=== PATIENT | female | born 1940 | race Caucasian/White ===

== ENCOUNTER 2016-11-11 14:15 | Inpatient (IN) ==
[2016-11-11] MEDS ORDERED: NS 1,000 ML IV ONE ×2 (14:33→17:51)
--- NOTE | 2016-11-11 14:36 | Emergency Department Report ---
Fever HPI - General Chief Complaint: Fever Stated Complaint: sleepy mentation Time Seen by Provider: 11/11/16 14:25 Source: patient Mode of arrival: EMS Limitations: no limitations - History of Present Illness HPI Narrative: She presents to ER today with per EMS with her daughter. She lives in the [facility] here in [place]. Nursing staff called her daughter and notified her that she has been more confused and sleepy today. She is more perked up per her daughter upon arrival to ER. She is noted to have a temp of 101 upon arrival and also a b/p of 91 systolic. She denies any chills, chest pain, SOA, pain, n/v , or any other c/o. MD complaint: fever Onset (ago): hour(s) Temperature Source: oral Associated symptoms: confusion Relieving factors: nothing Exacerbating factors: nothing Treatments prior to arrival fever: none - Related Data Home Medications Medication Instructions Recorded Confirmed Acyclovir 400 mg PO BID 11/11/16 11/11/16 Albuterol HFA Inhaler [Ventolin 2 puff INH QID PRN 11/11/16 11/11/16 Hfa 90 mcg/actuation] Amlodipine [Norvasc] 5 mg PO DAILY 11/11/16 11/11/16 Atorvastatin [Lipitor] 1 tab PO DAILY 11/11/16 11/11/16 Baclofen [Lioresal] 10 mg PO TID 11/11/16 11/11/16 Calcium 500 + D [Os Cheko-D 500] 1 tab PO DAILY 11/11/16 11/11/16 Colesevelam [Welchol] 1,250 mg PO BID 11/11/16 11/11/16 Cyanocobalamin (Vitamin B-12) 1,000 mcg PO DAILY 11/11/16 11/11/16 [Vitamin B-12] Desipramine HCl 50 mg PO BID 11/11/16 11/11/16 Diclofenac Potassium 50 mg PO BID 11/11/16 11/11/16 Divalproex ER [Depakote ER] 1,000 mg PO BID 11/11/16 11/11/16 Fluticasone [Flovent Diskus 50 mcg] 1 spray EA NOSTRIL DAILY 11/11/16 11/11/16 Hydrocodone/Acetaminophen 1 tab PO Q6HR PRN 11/11/16 11/11/16 [Hydrocodon-Acetaminophen 5-325] Losartan/Hctz 50/12.5 [Hyzaar 1 tab PO DAILY 11/11/16 11/11/16 50/12.5] Magnesium Oxide [Magnesium] 500 mg PO DAILY 11/11/16 11/11/16 Methylcellulose (with Sugar) 2 packet PO DAILY 11/11/16 11/11/16 [Fiber Therapy Powder] Metoprolol Succinate (XL) [Toprol 50 mg PO DAILY 11/11/16 11/11/16 Xl] Multi-Vitamin Plain [Theragran] 1 tab PO DAILY 11/11/16 11/11/16 Nystatin/Triamcinolone CR [MYCOLOG 15 applic TP BID 11/11/16 11/11/16 ii] Olopatadine 0.1% Eye Drops-Bid 1 drop EACH EYE BID 11/11/16 11/11/16 [Patanol] Omeprazole [Prilosec] 20 mg PO ACB 11/11/16 11/11/16 Oxybutynin Chloride 5 mg PO BID 11/11/16 11/11/16 Potassium 99 mg PO DAILY 11/11/16 11/11/16 Venlafaxine HCl [Venlafaxine HCl 150 mg PO DAILY 11/11/16 11/11/16 ER] Zolpidem [Ambien] 10 mg PO HS 11/11/16 11/11/16 Allergies Allergy/AdvReac Type Severity Reaction Status Date / Time gabapentin Allergy Unknown Verified 11/11/16 15:11 pregabalin [From Lyrica] Allergy Unknown Verified 11/11/16 15:10 latex Allergy Verified 11/11/16 15:12 Review of Systems Constitutional: Reports: fever, weakness. Denies: chills ENT: Denies: ear pain, throat pain, congestion Cardiovascular: Denies: chest pain, palpitations, dyspnea on exertion, edema Respiratory: Denies: cough, dyspnea, wheezes Gastrointestinal: Denies: abdominal pain, nausea, vomiting, diarrhea Integumentary: Denies: rash Neurological: Reports: weakness. Denies: headache, numbness, paresthesias PFSH Patient Stated Medical History Cataracts Yes Hypertension Yes Pneumonia Yes Gastroesophageal Reflux Yes Disease Hx Renal Disease Yes Anemia Yes Shingles Yes Was hospitalized in 1989 for severe pneumonia-had bilateral chest tubes and trach at that time. subdural hematoma right kidney failure back pain-has nerves stimulator and pain pump Surgical History: Nerve stimulator. cataracts. cholecystectomy. lumpectomy- left breast, breast cancer. hernia repair. bilateral chest tube with tracheotomy due to severe pneumonia. hysterctomy. tubal ligation. tonsillectomy - Social History Smoking status: Former smoker Substance use type: does not use Alcohol intake frequency: does not drink Physical Exam - Limitations Limitations: no limitations - General General appearance: alert, in no apparent distress - Normal Exams: ENMT:: No facial trauma, nasal exudates, pharyngeal erythema, or exudates are noted Neck:: Full range of motion, without adenopathy, JVD, bruits or thyromegaly Chest/Respirations:: Clear all [place], with good airflow, and symmetry bilaterally Cardiovascular:: Regular rate and rhythm, without murmur or gallop, Pulses 2+ all extremities, capillary refill, <2 seconds all extremities Abdomen:: Bowel sounds positive, soft, non-tender, non-distended, no hepatosplenomegaly, masses or bruits noted Lymphatic:: No lymphadenopathy, or lymphedema noted Integumentary:: No rashes, hives, or bruising noted Neurological:: Patient is alert, and oriented Psychiatric:: Patient exhibits, appropriate attention, emotion and affect Course Vital Signs Pulse Oximetry 88 L 11/11/16 14:21 Temperature 100.1 F 11/11/16 16:32 Pulse Rate 78 11/11/16 16:30 Respiratory Rate 18 11/11/16 14:22 Blood Pressure 89/56 11/11/16 15:28 Pulse Oximetry 95 11/11/16 16:30 Fever - MDM Narrative Medical decision making narrative: WBC is 16.1 with 79 neutrophils and 10% bands. Procalcitonin is 2.32, lactate is 1.9. UA is nitrite positive, LE 1+, WBC 50-200, and bacteria is 3+. Chest xray is clear. B/p has been 79-90s systolic while in ER. IVF is infusing and Rocephin was given IV. Did discuss labs, xray, HPI, and vitals with Dr Anderson and he will admit at this time. - Differential Diagnosis Likely: fever of unknown origin, community acquired pneumonia, viral infection, sepsis - Lab Data Attestation: I reviewed the patient's lab results. Result diagrams: 11/11/16 14:58 11/11/16 14:58 Lab Results 11/11/16 11/11/16 11/11/16 Range/Units 14:58 14:58 14:58 WBC 16.1 H (4.5-11.0) T/MM3 RBC 3.22 L (4.00-5.20) M/MM3 Hgb 10.9 L (12-16) GM/DL Hct 33.0 L (36-46) % MCV 102.5 H (80-100) UM3 MCH 33.9 (26-34) UUG MCHC 33.0 (31-37) GM/DL RDW Std Deviation 49.6 (36.9-50.2) FL Plt Count 179 (130-400) T/MM3 MPV 10.3 (9.4-12.4) UM3 Immature Gran % (Auto) Not performed Neut % (Auto) Not performed Lymph % (Auto) Not performed [place] % (Auto) Not performed Eos % (Auto) Not performed Baso % (Auto) Not performed Neut # (Auto) Not performed Lymph # (Auto) Not performed [place] # (Auto) Not performed Eos # (Auto) Not performed Baso # (Auto) Not performed Abs Immat Gran (auto) Not performed Neutrophils % (Manual) 79.0 H (33-66) % Band Neutrophils % 10.0 H (0-6) % Lymphocytes % (Manual) 3.0 L (23-45) % Monocytes % (Manual) 8.0 (0-9.0) % Neutrophils # (Manual) 12.7 H (1.8-7.7) T/MM3 Band Neutrophils # 1.6 T/MM3 Lymphocytes # (Manual) 0.5 L (1-4.8) T/MM3 Monocytes # (Manual) 1.3 H (0-0.8) T/MM3 RBC Morph Comment Normal Turbidity < 20 (0-20) Sodium 131 L (134-144) MEQ/L Potassium 3.7 (3.6-5) MEQ/L Chloride 94 L (98-107) MEQ/L Carbon Dioxide 29 (22-30) MEQ/L Anion Gap 8 (5-15) MEQ/L BUN 20.0 H (7-17) MG/DL Creatinine 1.2 (0.7-1.2) MG/DL GFR Calculation 44 BUN/Creatinine Ratio 17 (6-26) RATIO Glucose 81 (65-110) MG/DL Calculated Osmolality 255 L (261-280) MOSM/KG Calcium 9.0 (8.4-10.2) MG/DL Total Bilirubin 0.50 (0.20-1.30) MG/DL Icterus Index < 2 (0-7) AST 30 (14-36) U/L ALT 32 (9-52) U/L Alkaline Phosphatase 56 (38-126) U/L Troponin I < 0.012 (0-0.12) ng/ml Total Protein 5.7 L (6.3-8.2) G/DL Albumin 2.7 L (3.5-5.0) G/DL Globulin 3.0 (2.4-3.6) G/DL Albumin/Globulin Ratio 0.9 L (1.1-2.2) RATIO Plasma Lactate 1.9 (0.6-2.2) MMOL/L Procalcitonin 2.32 H* NG/ML Specimen Hemolysis < 15 (0-25) Ur Collection Type Urine Color (YELLOW) Urine Clarity Urine pH (5.0-8.0) Ur Specific [place] (1.015-1.025) Urine Protein (NEGATIVE) Urine Glucose (UA) (NEGATIVE) Urine Ketones (NEGATIVE) Urine Occult Blood (NEGATIVE) Urine Nitrate (NEGATIVE) Urine Bilirubin (NEGATIVE) Urine Urobilinogen (NORMAL) EU/DL Ur Leukocyte Esterase (NEGATIVE) Urine RBC (0-3) /HPF Urine WBC (0-5) /HPF Urine Bacteria (NEGATIVE) Ur Culture Indicated? 11/11/16 Range/Units 15:08 WBC (4.5-11.0) T/MM3 RBC (4.00-5.20) M/MM3 Hgb (12-16) GM/DL Hct (36-46) % MCV (80-100) UM3 MCH (26-34) UUG MCHC (31-37) GM/DL RDW Std Deviation (36.9-50.2) FL Plt Count (130-400) T/MM3 MPV (9.4-12.4) UM3 Immature Gran % (Auto) Neut % (Auto) Lymph % (Auto) [place] % (Auto) Eos % (Auto) Baso % (Auto) Neut # (Auto) Lymph # (Auto) [place] # (Auto) Eos # (Auto) Baso # (Auto) Abs Immat Gran (auto) Neutrophils % (Manual) (33-66) % Band Neutrophils % (0-6) % Lymphocytes % (Manual) (23-45) % Monocytes % (Manual) (0-9.0) % Neutrophils # (Manual) (1.8-7.7) T/MM3 Band Neutrophils # T/MM3 Lymphocytes # (Manual) (1-4.8) T/MM3 Monocytes # (Manual) (0-0.8) T/MM3 RBC Morph Comment Turbidity (0-20) Sodium (134-144) MEQ/L Potassium (3.6-5) MEQ/L Chloride (98-107) MEQ/L Carbon Dioxide (22-30) MEQ/L Anion Gap (5-15) MEQ/L BUN (7-17) MG/DL Creatinine (0.7-1.2) MG/DL GFR Calculation BUN/Creatinine Ratio (6-26) RATIO Glucose (65-110) MG/DL Calculated Osmolality (261-280) MOSM/KG Calcium (8.4-10.2) MG/DL Total Bilirubin (0.20-1.30) MG/DL Icterus Index (0-7) AST (14-36) U/L ALT (9-52) U/L Alkaline Phosphatase (38-126) U/L Troponin I (0-0.12) ng/ml Total Protein (6.3-8.2) G/DL Albumin (3.5-5.0) G/DL Globulin (2.4-3.6) G/DL Albumin/Globulin Ratio (1.1-2.2) RATIO Plasma Lactate (0.6-2.2) MMOL/L Procalcitonin NG/ML Specimen Hemolysis (0-25) Ur Collection Type Urine, clean catch Urine Color Yellow (YELLOW) Urine Clarity Sl cloudy Urine pH 5.5 (5.0-8.0) Ur Specific [place] 1.020 (1.015-1.025) Urine Protein 1+ A (NEGATIVE) Urine Glucose (UA) Negative (NEGATIVE) Urine Ketones Trace A (NEGATIVE) Urine Occult Blood Trace-intact (NEGATIVE) Urine Nitrate Positive A (NEGATIVE) Urine Bilirubin Negative (NEGATIVE) Urine Urobilinogen 0.2 (NORMAL) EU/DL Ur Leukocyte Esterase 1+ A (NEGATIVE) Urine RBC 3-5 H (0-3) /HPF Urine WBC 50-200 H (0-5) /HPF Urine Bacteria 3+ H (NEGATIVE) Ur Culture Indicated? Cult reflexed &setup - Radiology Data Attestation: I reviewed the patient's radiology results. Date of Exam: 11/11/16 Ordering Provider: Lian Middleton APRN Type of Exam(s): XR chest 2V Reason for Exam(s): dyspnea INDICATION: dyspnea PROCEDURE: CHEST 2-VIEWS UPRIGHT (PA & LAT) Encounter: Initial COMPARISON: None FINDINGS: The lungs are clear without evidence of focal abnormal airspace opacity. There is no pleural effusion or pneumothorax. The heart size, mediastinal contours and pulmonary vascularity are within normal limits. Exaggerated thoracic adiposis with chronic appearing lower thoracic compression fractures. Epidural spinal stimulator leads in this region as well. Cholecystectomy clips. Scoliosis. IMPRESSION: No acute cardiopulmonary disease. . Disposition Clinical Impression: Hypotension Qualifiers: Hypotension type: other hypotension type Qualified Code(s): I95.89 - Other hypotension Urinary tract infection Qualifiers: Urinary tract infection type: acute cystitis Hematuria presence: without hematuria Qualified Code(s): N30.00 - Acute cystitis without hematuria [place] [facility] [place] Condition: Stable Time of Disposition: 15:42 - Seen By: midlevel
[2016-11-11] MEDS ORDERED: CEFTRIAXONE (ER USE ONLY) 1 GM in NS 100 ML IV ONE (14:45)
[2016-11-11] MEDS ORDERED: ACETAMINOPHEN 325 MG TABLET PO ONE (14:45)
--- NOTE | 2016-11-11 15:31 | XRay Report ---
INDICATION: dyspnea PROCEDURE: CHEST 2-VIEWS UPRIGHT (PA & LAT) Encounter: Initial COMPARISON: None FINDINGS: The lungs are clear without evidence of focal abnormal airspace opacity. There is no pleural effusion or pneumothorax. The heart size, mediastinal contours and pulmonary vascularity are within normal limits. Exaggerated thoracic adiposis with chronic appearing lower thoracic compression fractures. Epidural spinal stimulator leads in this region as well. Cholecystectomy clips. Scoliosis. IMPRESSION: No acute cardiopulmonary disease. .
[2016-11-11] MEDS: SALINE FLUSH 10ml SYRINGE IVF PRN (15:36)
--- NOTE | 2016-11-11 16:45 | History & Physical Report ---
<Aubree Wheeler - Last Filed: 11/11/16 17:18> History of Present Illness Date: 11/11/16 Chief complaint: altered mental status, fever HPI: Kait Azul is a very pleasant 76-year-old female resident at [facility] who presented to [facility] emergency department via EMS today, 11/11/16, for evaluation of decreased level of consciousness, increased confusion and fever. Her daughter, Oralia, is present on exam and contributes to the history. Kait reports that yesterday, 11/10/16 she started to feel flushed and this morning she just "couldn't wake up". Family reports that she was lethargic this morning with some confusion and apparent difficulty concentrating. Upon arrival to the ED, blood pressure per EMS was noted to be low at 94/55. She was also noted to be febrile with a temperature of 101.3. Labs were obtained and revealed leukocytosis with WBC 16.1 with 79% neutrophils and 10% bands, anemia with hemoglobin 10.9 and platelets 179. She has a history of chronic anemia. CMP revealed hyponatremia with sodium at 131, potassium 3.7, BUN 20, SCr 1.2 and glucose 81. No prior records are available to compare renal function, though she reports history of chronic renal disease. Troponin was negative at <0.012. Lactate was 1.9 and procalcitonin was elevated at 2.32. Blood cultures were obtained and results pending. UA revealed + nitrite with 50 -200 WBC and 3+ bacteria. She was given 1L NS with light improvement in her blood pressure and significant improvement in her mentation. Due to her apparent sepsis secondary to UTI as indicated by her leukocytosis, bandemia and febrile process, Dr. Anderson was contacted and she was admitted into inpatient status for further evaluation, close monitoring for deterioration, IV antibiotics and IV fluid resuscitation. Her length of stay is expected to be greater than 2 over nights. She is seen immediately upon her arrival to her room, with her daughter, Oralia, at the bed side. Oralia reports that the patient looks and is acting significantly better since her presentation to the ED. Kait reports her only complaint is pain to her left inner, posterior thigh/groin secondary to an ulceration that she reports is secondary to her chronic shingles. She denies any known fevers, but admits to feeling flushed yesterday. No chill, headache, change in vision, chest pain, shortness of breath, cough, congestion, nausea, vomiting, chest pain or dysuria. Review of Systems All systems PM: 10-point ROS was reviewed, no additional remarkable complaints except - Constitutional Constitutional: Present: fatigue, fever(s), lethargy, weakness. Absent: chills - EENMT Eyes: Absent: change in vision, photophobia Balance: Absent: falling to one side Nose: Absent: nosebleeds Mouth/Throat: Present: dry mouth. Absent: sore throat, changes in swallowing - Cardiovascular Cardiovascular: Present: edema. Absent: chest pain, palpitations, syncope, dyspnea on exertion, orthopnea Vascular: Present: pedal edema - Respiratory Respiratory: Absent: cough, dyspnea, hemoptysis, dyspnea on exertion, wheezing, pain on inspiration, chest congestion - Gastrointestinal Gastrointestinal: Present: constipation. Absent: abdominal pain, diarrhea, hematochezia, melena, nausea, vomiting - Genitourinary Genitourinary: Present: urinary incontinence. Absent: difficulty urinating, dysuria, flank pain, hematuria, urinary frequency Menstruation: post hysterectomy - Musculoskeletal Musculoskeletal: Present: back pain, muscle weakness - Integumentary/Breasts Integumentary: Present: non-healing lesions (left medial/posterior upper thigh/ groin ulceration ). Absent: jaundice - Neurological Neurological: Present: confusion, memory loss, weakness. Absent: convulsions, dizziness, focal weakness, headache(s) - Psychiatric Psychiatric: Absent: anxiety - Endocrine Endocrine: Present: flushing. Absent: palpitations - Hematologic/Lymphatic Hematologic/Lymphatic: Present: easy bleeding, easy bruising - Allergic/Immunologic Allergic/Immunologic: Absent: seasonal rhinorrhea PFSH Hypertension. COPD. Hypercholesterolemia. GERD. Chronic back pain. Chronic kidney disease, stage III. Obesity. Cataracts. History of pneumonia. History of shingles. Depression. History of subdural hematoma-2015. History of breast cancer. History of pyelonephritis with right kidney failure - 1979. Surgical History: Nerve stimulator to back-2015,2014,2008. Cataract implant x 2 -2006. Cholecystectomy-2006. Lumpectomy-left breast, breast cancer-2001. Hernia repair-2001. Bilateral chest tube with tracheotomy due to severe pneumonia-1989. Hysterctomy-1971. Bilateral tubal ligation-1970. Tonsillectomy-1946. Family History Updates: Mother - age 70, unknown cancer. Father - age 68, diabetes. - Social History Smoking status: Former smoker Substance use type: does not use Alcohol intake frequency: does not drink Household members: none Current occupational status: retired Current residence: [facility] ([facility]) Social history: PCP - Dr. Wheatley. Pain management - Dr. Rebolledo ([place]). Medications Home Medications Medication Instructions Recorded Confirmed Type Acyclovir 400 mg PO BID 11/11/16 11/11/16 History Albuterol HFA Inhaler [Ventolin 2 puff INH QID PRN 11/11/16 11/11/16 History Hfa 90 mcg/actuation] Amlodipine [Norvasc] 5 mg PO DAILY 11/11/16 11/11/16 History Atorvastatin [Lipitor] 1 tab PO DAILY 11/11/16 11/11/16 History Baclofen [Lioresal] 10 mg PO TID 11/11/16 11/11/16 History Calcium 500 + D [Os Cheko-D 500] 1 tab PO DAILY 11/11/16 11/11/16 History Colesevelam [Welchol] 1,250 mg PO BID 11/11/16 11/11/16 History Cyanocobalamin (Vitamin B-12) 1,000 mcg PO DAILY 11/11/16 11/11/16 History [Vitamin B-12] Desipramine HCl 50 mg PO BID 11/11/16 11/11/16 History Diclofenac Potassium 50 mg PO BID 11/11/16 11/11/16 History Divalproex ER [Depakote ER] 1,000 mg PO BID 11/11/16 11/11/16 History Fluticasone [Flovent Diskus 50 mcg] 1 spray EA NOSTRIL DAILY 11/11/16 11/11/16 History Hydrocodone/Acetaminophen 1 tab PO Q6HR PRN 11/11/16 11/11/16 History [Hydrocodon-Acetaminophen 5-325] Losartan/Hctz 50/12.5 [Hyzaar 1 tab PO DAILY 11/11/16 11/11/16 History 50/12.5] Magnesium Oxide [Magnesium] 500 mg PO DAILY 11/11/16 11/11/16 History Methylcellulose (with Sugar) 2 packet PO DAILY 11/11/16 11/11/16 History [Fiber Therapy Powder] Metoprolol Succinate (XL) [Toprol 50 mg PO DAILY 11/11/16 11/11/16 History Xl] Multi-Vitamin Plain [Theragran] 1 tab PO DAILY 11/11/16 11/11/16 History Nystatin/Triamcinolone CR [MYCOLOG 15 applic TP BID 11/11/16 11/11/16 History ii] Olopatadine 0.1% Eye Drops-Bid 1 drop EACH EYE BID 11/11/16 11/11/16 History [Patanol] Omeprazole [Prilosec] 20 mg PO ACB 11/11/16 11/11/16 History Oxybutynin Chloride 5 mg PO BID 11/11/16 11/11/16 History Potassium 99 mg PO DAILY 11/11/16 11/11/16 History Venlafaxine HCl [Venlafaxine HCl 150 mg PO DAILY 11/11/16 11/11/16 History ER] Zolpidem [Ambien] 10 mg PO HS 11/11/16 11/11/16 History Allergies Allergy/AdvReac Type Severity Reaction Status Date / Time gabapentin Allergy Unknown Verified 11/11/16 15:11 pregabalin [From Lyrica] Allergy Unknown Verified 11/11/16 15:10 latex Allergy Verified 11/11/16 15:12 Exam Vital Signs: Temperature 100.1 F 11/11/16 16:32 Pulse Rate 78 11/11/16 16:30 Respiratory Rate 18 11/11/16 14:22 Blood Pressure 89/56 11/11/16 15:28 Pulse Oximetry 95 11/11/16 16:30 - Constitutional Present: no acute distress, well nourished, well developed, obese, cooperative - Routine HEENT Exam Head: Present: normocephalic, atraumatic Eye: Present: PERRL. Absent: conjunctival icterus ENT: Present: mucous membranes dry, oropharynx clear, dentition normal - Routine Neck Exam Present: supple, full ROM, trachea midline - Routine Chest/Breast/Axilla Exam Chest wall: Absent: pacemaker - Routine Respiratory Exam Present: CTA bilaterally. Absent: stridor, wheezes, crackles - Routine Cardiovascular Exam Present: RRR, S1, S2 - Routine Abdominal Exam Present: soft, normoactive bowel sounds, non distended, non tender - Routine Exam Comments: 2x2 circular ulceration to left upper medial/posterior thigh/groin with mild erythema. No bleeding or discharge noted. - Routine Extremities Exam Present: edema, full ROM, pulses intact Comments: braces noted to bilateral lower extremities. - Routine Back/Spine/Pelvis Exam Back/Spine: Present: full ROM - Routine Skin Exam Present: dry, pallor, warm. Absent: jaundice Comments: febrile on admission. - Routine Neurological Exam Present: alert, oriented X3, moving all extremities, hearing grossly intact, normal speech. Absent: facial asymmetry - Routine Psychiatric Exam Present: cooperative Results - Labs CBC & Chem 7: 11/11/16 14:58 11/11/16 14:58 - Imaging and Cardiology Chest x-ray Status: image reviewed by me Additional comments: Date of Exam: 11/11/16 INDICATION: dyspnea PROCEDURE: CHEST 2-VIEWS UPRIGHT (PA & LAT) FINDINGS: The lungs are clear without evidence of focal abnormal airspace opacity. There is no pleural effusion or pneumothorax. The heart size, mediastinal contours and pulmonary vascularity are within normal limits. Exaggerated thoracic adiposis with chronic appearing lower thoracic compression fractures. Epidural spinal stimulator leads in this region as well. Cholecystectomy clips. Scoliosis. IMPRESSION: No acute cardiopulmonary disease. Assessment and Plan (1) Sepsis Current visit: Yes Status: Acute (2) Urinary tract infection Current visit: Yes Status: Acute (3) Acute hyponatremia Current visit: Yes Status: Acute DVT Prophylaxis: SCD's GI Prophylaxis: other (Prilosec) Assessment and Plan: Assessment Sepsis secondary to UTI, present on admission, acute. Altered mental status with increased confusion and lethargy, present on admission, acute. Hyponatremia, present on admission, acute. Hypertension, chronic. COPD, chronic. Hypercholesterolemia, chronic. GERD, chronic. Chronic back pain. Chronic kidney disease, stage III. Obesity, chronic. History of shingles. Depression, chronic. Plan-11/11/16 (Admission) Admit to inpatient status under the care of Dr. Anderson. Patient noted to meet sepsis criteria upon admission as indicated by fever ( 101.4), leukocytosis (WBC 16.1), bandemia (10%) and concern for altered mental status and increased confusion. UA confirmed UTI with + nitrite, 50-200 WBC and 3+ bacteria. UA and blood cultures pending. Rocephin 1g IV given in ED. Will continue Rocephin 1g daily for empiric antimicrobial coverage of suspected urinary pathogens. Tylenol as needed pain and fever control. Lactate 1.9 in ED. Will recheck at 2100. Procalcitonin elevated at 2.32. Patient was given 1L NS in ED. Hyponatremia noted on admission with sodium 131. Will continue NS at 125cc/hr for fluid resuscitation. Monitor closely for signs of fluid overload and daily weight. Initial blood pressure in ED was noted to be borderline low at 94/55. Improved with fluid resuscitation. Continue to monitor blood pressure closely and will monitor cardiac function closely on telemetry. Troponin in ED was negative at < 0.012. In light of low blood pressure, will hold home blood pressure medications including Norvasc 5mg, Losartan/HCTZ 50/12.5 and metoprolol XL. Continue home Prilosec for GERD and GI protection. SCDs for DVT prophylaxis. CXR in ED showed no acute cardiopulmonary abnormalities. Continue home inhalers and monitor respiratory function closely. Encourage incentive spirometry for pulmonary toileting. Anemia noted on admission with hemoglobin 10.9. History of chronic anemia. Monitor blood counts closely and continue home B12. Unable to reconcile medications in computer as current medication list has not been verified. Will try and obtain current medication list from [facility]. Upon discharge, patient's care will be returned to her PCP, Dr. Wheatley. - Time spent with patient Time with patient PN: 50 minutes Sepsis Assessment - Evaluation Possible source: genitourinary Confirmed Suspected Infection: Yes SIRS Criteria: acute mental status change, temperature > or equal to 100.4, WBC > or equal to 12,000, Bands > or equal to 10% Hospital Course Summary Disclaimer: The visit summary below is not to be considered part of the above Progress Note. Hospital Course: Plan-11/11/16 (Admission) Admit to inpatient status under the care of Dr. Anderson. Patient noted to meet sepsis criteria upon admission as indicated by fever ( 101.4), leukocytosis (WBC 16.1), bandemia (10%) and concern for altered mental status and increased confusion. UA confirmed UTI with + nitrite, 50-200 WBC and 3+ bacteria. UA and blood cultures pending. Rocephin 1g IV given in ED. Will continue Rocephin 1g daily for empiric antimicrobial coverage of suspected urinary pathogens. Tylenol as needed pain and fever control. Lactate 1.9 in ED. Will recheck at 2100. Procalcitonin elevated at 2.32. Patient was given 1L NS in ED. Hyponatremia noted on admission with sodium 131. Will continue NS at 125cc/hr for fluid resuscitation. Monitor closely for signs of fluid overload and daily weight. Initial blood pressure in ED was noted to be borderline low at 94/55. Improved with fluid resuscitation. Continue to monitor blood pressure closely and will monitor cardiac function closely on telemetry. Troponin in ED was negative at < 0.012. In light of low blood pressure, will hold home blood pressure medications including Norvasc 5mg, Losartan/HCTZ 50/12.5 and metoprolol XL. Continue home Prilosec for GERD and GI protection. SCDs for DVT prophylaxis. CXR in ED showed no acute cardiopulmonary abnormalities. Continue home inhalers and monitor respiratory function closely. Encourage incentive spirometry for pulmonary toileting. Anemia noted on admission with hemoglobin 10.9. History of chronic anemia. Monitor blood counts closely and continue home B12. Unable to reconcile medications in computer as current medication list has not been verified. Will try and obtain current medication list from [facility]. Upon discharge, patient's care will be returned to her PCP, Dr. Wheatley. <Irvin Anderson - Last Filed: 11/11/16 18:57> History of Present Illness Date: 11/11/16 [facility] Patient Stated Medical History Cerebrovascular Accident Yes Cataracts Yes Hypertension Yes Pneumonia Yes Gastroesophageal Reflux Yes Disease Hx Incontinence Yes Hx Renal Disease Yes Anemia Yes Shingles Yes Other Yes: left side lumpectomy. Exam Vital Signs: Temperature 99.1 F 11/11/16 17:22 Pulse Rate 78 11/11/16 17:22 Respiratory Rate 14 11/11/16 17:22 Blood Pressure 64/42 11/11/16 17:22 Pulse Oximetry 94 11/11/16 17:22 Height/Weight/BMI: Height 1.6 m Weight 83.1 kg Body Mass Index 32.4 Results - Labs CBC & Chem 7: 11/11/16 14:58 11/11/16 14:58 Assessment and Plan (1) Sepsis Current visit: Yes Status: Acute (2) Urinary tract infection Current visit: Yes Status: Acute (3) Acute hyponatremia Current visit: Yes Status: Acute Resuscitation Status: Full Code Assessment and Plan: Assessment Sepsis secondary to UTI, present on admission, acute. Altered mental status with increased confusion and lethargy, present on admission, acute. Hyponatremia, present on admission, acute. Hypertension, chronic. COPD, chronic. Hypercholesterolemia, chronic. GERD, chronic. Chronic back pain. Chronic kidney disease, stage III. History of shingles. Depression, chronic. Obesity with BMI 32.5, chronic. Have independently interviewed and examined pt. Chart reviewed. Case discussed with ED provider and my PA. Care plan developed with my supervision; agre with above. Presents to ED secondary to extreme somnolency-not able to wake up and be functional. Reports may have been having some fevers/chills for the past 2 day. Overall, not feeling too bad until today when became extremely exhausted. Confusion initially. Denies problems with breathing-not having increased chest congestion, cough, or SOA. Appetite stable. No diarrhea - stools tend to be loose. Notes increased shingles pain. Chronic hypertension-has been adherent with her 3 antihypertensives. Chronic pain-does have a pain pump but reports it doesn't always work (will go in for a refill, and still alot of pain medication remaining. With somnolence and weakness, presents to ED for evaluation. BP decreased and IVF given. WBC elevated. Urine showing evidence of infection. CXR without acute changes. Place in inpatient admission for further treatment modalities. Anticipate greater than 2 midnights of care needed. Lungs: decreased, no distress or RA CV: regular AB: soft nt/nd +BS MSE: awake alert appropriate Plan: Inpatient admission. Rocephin for urinary coverage. BP did decrease when arrived to floor so repeat 1L bolus given. Full 30mg/kg bolus would be 2.5L. Mentation improving. Will hold antihypertensive due to hypotension. Monitor lab. PT/OT to help increase strength once sepsis syndrome improves. Care to retur to Dr Solis at time of discharge from [facility]. Hospital Course Summary Disclaimer: The visit summary below is not to be considered part of the above Progress Note.
[2016-11-11] MEDS ORDERED: ONDANSETRON 4 MG/2 ML INJECTION IVP PRN (17:22)
[2016-11-11] MEDS ORDERED: ACETAMINOPHEN 500 MG TABLET PO PRN (17:23)
[2016-11-11 17:24] VITALS: BMI 32.4
[2016-11-11] MEDS: NS 1,000 ML IV SCH (18:00)
[2016-11-11] MEDS ORDERED: ZOLPIDEM 10 MG TABLET PO PRN (19:21)
[2016-11-11] MEDS ORDERED: COLESEVELAM 625 MG TABLET PO SCH (21:00)
[2016-11-11] MEDS: BACLOFEN 10 MG TABLET PO SCH (22:28)
[2016-11-12] MEDS ORDERED: NS 1,000 ML IV ONE (00:15)
[2016-11-12] MEDS: NS 1,000 ML IV SCH ×3 (01:18→20:44)
[2016-11-12] MEDS: ACYCLOVIR 200 MG CAPSULE PO SCH ×3 (06:16→20:13)
[2016-11-12] MEDS: OMEPRAZOLE 20 MG CAPSULE PO SCH (06:17)
[2016-11-12] MEDS ORDERED: ATORVASTATIN 10 MG TABLET PO SCH (09:00)
[2016-11-12] MEDS: MAGNESIUM OXIDE 400 MG TABLET PO SCH (09:07)
[2016-11-12] MEDS: BACLOFEN 10 MG TABLET PO SCH ×3 (09:07→20:09)
[2016-11-12] MEDS: PSYLLIUM PACKET PO SCH (09:07)
[2016-11-12] MEDS: ENOXAPARIN 40 MG/0.4 ML INJECTION SQ SCH (09:07)
[2016-11-12] MEDS: DESIPRAMINE 25 MG TABLET PO SCH ×2 (09:07→20:11)
[2016-11-12] MEDS: MULTI-VITAMIN PLAIN TABLET PO SCH (09:08)
[2016-11-12] MEDS: CALCIUM 500 + VIT D 200 TABLET PO SCH (09:08)
[2016-11-12] MEDS: CYANOCOBALAMIN (B-12) 500mcg TABLET PO SCH (09:08)
[2016-11-12] MEDS: CEFTRIAXONE 1 G in NS 100 ML IV SCH (09:57)
[2016-11-12] MEDS ORDERED: BISACODYL 10 MG SUPPOSITORY RECTALLY PRN (11:41)
--- NOTE | 2016-11-12 12:07 | Progress Note ---
Subjective: F/U: Sepsis, bacteremia with E coli, UTI Doing fair this afternoon-still very tired and sleepy. Breathing feels short- not congested, but some cough. Denies pain with breathing. No chest pressure. Appetite decreased. Stools very slow-nursing had to manually disimpact her this am (typically has to do this daily at home). BP improving with IVF - positional changes in BP based on her arm location. Objective Vital signs: Temperature 98.9 F 11/12/16 08:00 Pulse Rate 97 11/12/16 11:45 Respiratory Rate 31 H 11/12/16 11:45 Blood Pressure 92/50 11/12/16 11:45 Pulse Oximetry 97 11/12/16 11:45 Height/Weight/BMI: Height 1.6 m Weight 83.007 kg Body Mass Index 32.4 - Constitutional Present: mild distress, well nourished, well developed, obese, disheveled, cooperative. Absent: combative, agitated - Routine HEENT Exam Head: Present: normocephalic, atraumatic Eye: Present: EOMI, PERRL ENT: Present: mucous membranes moist - Routine Respiratory Exam Present: decreased breath sounds, prolonged expiratory phase, respiratory distress (Breathing more labored today than at presentation. ), diminished air movement. Absent: rhonchi, wheezes, crackles - Routine Cardiovascular Exam Present: RRR, no murmur - Routine Abdominal Exam Present: soft, non distended, non tender. Absent: normoactive bowel sounds ( Decreased ), guarding - Routine Extremities Exam Present: cyanosis, clubbing, edema (+1 BLE ), pulses intact Comments: SCD in place - Routine Skin Exam Present: dry, warm. Absent: mottling - Routine Neurological Exam Present: alert, CN II-XII intact, moving all extremities, vision grossly intact , hearing grossly intact. Absent: altered mental status - Routine Psychiatric Exam Present: normal affect, normal thought process, cooperative. Absent: anxious, agitated Results - Labs CBC & Chem 7: 11/12/16 05:35 11/12/16 05:35 - ABG Interpretation ABG results: 11/12/16 01:28 VBG pH 7.370 VBG pCO2 44 VBG pO2 40 VBG HCO3 25 VBG Total CO2 26.8 VBG O2 Saturation 73.0 VBG Base Excess -0.1 Assessment and Plan (1) Sepsis Current visit: Yes Status: Acute (2) Urinary tract infection Current visit: Yes Status: Acute (3) Acute hyponatremia Current visit: Yes Status: Acute DVT Prophylaxis: SCD's, Lovenox Resuscitation Status: Full Code Assessment and Plan: Assessment Sepsis secondary to UTI, present on admission, acute. Bacteremia with Ecoli Hypotension (POA) - improved with IVF Altered mental status with increased confusion and lethargy (POA) acute. Hyponatremia (POA) acute. Hypoxia, acute Hypertension, chronic. COPD, chronic. Hypercholesterolemia, chronic. GERD, chronic. Chronic back pain. Chronic kidney disease, stage III. History of shingles. Depression, chronic. Obesity with BMI 32.5, chronic. Plan Patient transfer to CCU overnight due to low BP. IVF bolus given. BC positive for E coli - c/s pending. Will check CTA due to increased dyspnea and low BP to exclude PE. Continue Rocephin for antimicrobial support. IVF of NS at 125 for hydration. Start routine Miralax and Senna Plus due to significant constipation. PRN MOM and Dulcolax available. Continue to hold antihypertensives as BP low. Recheck CBC in am due to sepsis. Repeat CMP in am due to sepsis. Case discussed with CCU nursing. Time spent with patient care 35 minutes. - Time spent with patient Time with patient PN: 35 minutes Hospital Course Summary Disclaimer: The visit summary below is not to be considered part of the above Progress Note. Hospital Course: 11/11/16 (Admission) Assessment Sepsis secondary to UTI, present on admission, acute. Hypotension Altered mental status with increased confusion and lethargy, present on admission, acute. Hyponatremia, present on admission, acute. Hypertension, chronic. COPD, chronic. Hypercholesterolemia, chronic. GERD, chronic. Chronic back pain. Chronic kidney disease, stage III. Obesity, chronic. History of shingles. Depression, chronic. Plan Admit to inpatient status under the care of Dr. Anderson. Patient noted to meet sepsis criteria upon admission as indicated by fever ( 101.4), leukocytosis (WBC 16.1), bandemia (10%) and concern for altered mental status and increased confusion. UA confirmed UTI with + nitrite, 50-200 WBC and 3+ bacteria. UA and blood cultures pending. Rocephin 1g IV given in ED. Will continue Rocephin 1g daily for empiric antimicrobial coverage of suspected urinary pathogens. Tylenol as needed pain and fever control. Lactate 1.9 in ED. Will recheck at 2100. Procalcitonin elevated at 2.32. Patient was given 1L NS in ED. Hyponatremia noted on admission with sodium 131. Will continue NS at 125cc/hr for fluid resuscitation. Monitor closely for signs of fluid overload and daily weight. Initial blood pressure in ED was noted to be borderline low at 94/55. Improved with fluid resuscitation. Continue to monitor blood pressure closely and will monitor cardiac function closely on telemetry. Troponin in ED was negative at < 0.012. In light of low blood pressure, will hold home blood pressure medications including Norvasc 5mg, Losartan/HCTZ 50/12.5 and metoprolol XL. Continue home Prilosec for GERD and GI protection. SCDs for DVT prophylaxis. CXR in ED showed no acute cardiopulmonary abnormalities. Continue home inhalers and monitor respiratory function closely. Encourage incentive spirometry for pulmonary toileting. Anemia noted on admission with hemoglobin 10.9. History of chronic anemia. Monitor blood counts closely and continue home B12. Unable to reconcile medications in computer as current medication list has not been verified. Will try and obtain current medication list from [facility]. Upon discharge, patient's care will be returned to her PCP, Dr. Wheatley. 11/12/16 Patient transfer to CCU overnight due to low BP. IVF bolus given. BC positive for E coli - c/s pending. Will check CTA due to increased dyspnea and low BP to exclude PE. Continue Rocephin for antimicrobial support. IVF of NS at 125 for hydration. Start routine Miralax and Senna Plus due to significant constipation. PRN MOM and Dulcolax available. Continue to hold antihypertensives as BP low. Recheck CBC in am due to sepsis. Repeat CMP in am due to sepsis.
[2016-11-12] MEDS ORDERED: NS 100 ML ONE (12:13)
[2016-11-12] MEDS ORDERED: SALINE FLUSH 10ml SYRINGE ONE (12:13)
[2016-11-12] MEDS ORDERED: IOHEXOL 350mg/ml 75ml INJECTION ONE (12:13)
--- NOTE | 2016-11-12 13:05 | CT Scan Report ---
Indication: Dyspnea, COPD PROCEDURE: CT angio pulm emboli: Encounter: Initial Comparison: Chest x-ray from yesterday Technique: Axial CT pulmonary angiographic phase images were performed through the chest after the administration of intravenous contrast. Coronal and Sagittal MIP reconstructed images were created and reviewed. Automated Exposure Control and Iterative Reconstruction dose reducing techniques were utilized. Contrast: Omnipaque 350 62 mL Findings: Pulmonary arteries: Exam is diagnostic to the subsegmental pulmonary arterial level. No filling defects identified to suggest a pulmonary embolus. Other findings: Groundglass opacities and septal thickening in the anterior left upper lobe with areas of subpleural scarring bilaterally. Small right and trace left pleural effusions. No pneumothorax. Calcified granuloma in the left upper lobe. The central airways are patent. Patulous esophagus with debris. No axillary or mediastinal lymphadenopathy. Heart size is normal. No pericardial effusion. Impression: 1. No pulmonary embolus. 2. Pleural effusions and left upper lobe airspace opacity that could be due to edema or acute infection/inflammation. 3. Multifocal pulmonary fibrosis and scarring. .
[2016-11-12] MEDS ORDERED: INFLUENZA VAC High Dose 2017-18 (Fluzone HD*) (>=65yo) 0.5ml IM ONE (13:19)
[2016-11-12] MEDS ORDERED: NS 1,000 ML IV SCH (14:15)
[2016-11-12] MEDS: SENNA + DOCUSATE TABLET PO SCH ×2 (15:06→20:12)
[2016-11-12] MEDS: POLYETHYL GLYCOL 3350 17gm PACKET PO SCH (15:06)
[2016-11-12] MEDS ORDERED: INFLUENZA VAC. INJ. ADMIN CHARGE INJ ONE (15:06)
[2016-11-12] MEDS: HYDROCODONE/APAP 5mg/325mg TABLET PO PRN (15:09)
[2016-11-12] MEDS ORDERED: FUROSEMIDE 20 MG/2 ML INJECTION IVP ONE (15:18)
[2016-11-12] MEDS: SALINE FLUSH 10ml SYRINGE IVF PRN ×2 (15:22→20:04)
[2016-11-12] MEDS: ALBUTEROL/IPRATROPIUM 2.5mg-0.5mg/3ml NEB AEROSOL PRN (15:47)
[2016-11-12] MEDS: ATORVASTATIN 10 MG TABLET PO SCH (20:10)
[2016-11-12] MEDS: ALBUTEROL/IPRATROPIUM 2.5mg-0.5mg/3ml NEB AEROSOL SCH (20:27)
[2016-11-12] MEDS: BUDESONIDE INH.SOLN 0.5mg/2ml NEB AEROSOL SCH (20:28)
[2016-11-13] MEDS: HYDROCODONE/APAP 5mg/325mg TABLET PO PRN ×2 (00:51→14:07)
[2016-11-13] MEDS: OMEPRAZOLE 20 MG CAPSULE PO SCH (05:37)
[2016-11-13] MEDS: ALBUTEROL/IPRATROPIUM 2.5mg-0.5mg/3ml NEB AEROSOL SCH ×4 (06:45→20:40)
[2016-11-13] MEDS: BUDESONIDE INH.SOLN 0.5mg/2ml NEB AEROSOL SCH ×2 (06:45→20:40)
[2016-11-13] MEDS: CEFTRIAXONE 1 G in NS 100 ML IV SCH (10:04)
[2016-11-13] MEDS: DESIPRAMINE 25 MG TABLET PO SCH ×2 (10:06→20:23)
[2016-11-13] MEDS: SENNA + DOCUSATE TABLET PO SCH ×2 (10:06→20:27)
[2016-11-13] MEDS: CYANOCOBALAMIN (B-12) 500mcg TABLET PO SCH (10:06)
[2016-11-13] MEDS: MULTI-VITAMIN PLAIN TABLET PO SCH (10:07)
[2016-11-13] MEDS: MAGNESIUM OXIDE 400 MG TABLET PO SCH (10:07)
[2016-11-13] MEDS: ACYCLOVIR 200 MG CAPSULE PO SCH ×2 (10:07→20:24)
[2016-11-13] MEDS: POLYETHYL GLYCOL 3350 17gm PACKET PO SCH (10:08)
[2016-11-13] MEDS: ENOXAPARIN 40 MG/0.4 ML INJECTION SQ SCH (10:08)
[2016-11-13] MEDS: PSYLLIUM PACKET PO SCH (10:08)
[2016-11-13] MEDS: BACLOFEN 10 MG TABLET PO SCH ×3 (10:08→20:28)
[2016-11-13] MEDS: NS 1,000 ML IV SCH (10:09)
[2016-11-13] MEDS ORDERED: MENTHOL COUGH DROPS (RICOLA) MM PRN (10:28)
[2016-11-13] MEDS ORDERED: NS 1,000 ML IV SCH (10:30)
--- NOTE | 2016-11-13 10:38 | Progress Note ---
Subjective: F/U: Sepsis, bacteremia with E coli, UTI Doing fair-tired and weak. Notes SOA and cough. Chest congestion, but not mobilizing sputum. Denies pain with breathing or chest wall pain. Hard to take deep breath. Sinus congestion problematic. Appetite fair (notes hard to eat without her dentures). No nausea or ab pain/bloating. No f/c. Objective Vital signs: Temperature 98.6 F 11/13/16 04:00 Pulse Rate 96 11/13/16 04:00 Respiratory Rate 22 11/13/16 06:45 Blood Pressure 96/53 11/13/16 04:00 Pulse Oximetry 92 11/13/16 06:45 Height/Weight/BMI: Height 1.6 m Weight 83.007 kg Body Mass Index 32.4 - Constitutional Present: moderate distress, well nourished, well developed, obese. Absent: agitated - Routine HEENT Exam Head: Present: normocephalic, atraumatic Eye: Present: EOMI, PERRL ENT: Present: mucous membranes moist - Routine Respiratory Exam Present: dyspnea, decreased breath sounds, distant breath sounds, diminished air movement. Absent: rhonchi, wheezes, crackles - Routine Cardiovascular Exam Present: no murmur, tachycardia (Regular ) - Routine Abdominal Exam Present: soft, non distended, non tender. Absent: normoactive bowel sounds ( Decreased bowel sounds ) - Routine Extremities Exam Present: edema (+2 BLE ), pulses intact. Absent: cyanosis, clubbing - Routine Musculoskeletal Exam Musculoskeletal: Present: no clubbing or cyanosis - Routine Skin Exam Present: dry, warm - Routine Neurological Exam Present: alert, CN II-XII intact, moving all extremities, vision grossly intact , hearing grossly intact. Absent: motor deficit - Routine Psychiatric Exam Present: normal affect, normal thought process, cooperative. Absent: agitated Results - Labs CBC & Chem 7: 11/13/16 05:38 11/13/16 05:38 - ABG Interpretation ABG results: 11/12/16 01:28 VBG pH 7.370 VBG pCO2 44 VBG pO2 40 VBG HCO3 25 VBG Total CO2 26.8 VBG O2 Saturation 73.0 VBG Base Excess -0.1 Assessment and Plan (1) Sepsis Current visit: Yes Status: Acute (2) Urinary tract infection Current visit: Yes Status: Acute (3) Acute hyponatremia Current visit: Yes Status: Acute DVT Prophylaxis: SCD's, Lovenox Resuscitation Status: Full Code Assessment and Plan: Assessment Sepsis secondary to UTI, present on admission, acute. Bacteremia with Ecoli Hypotension (POA) - improved with IVF Altered mental status with increased confusion and lethargy (POA) acute. Hyponatremia (POA) acute. Hypoxia, acute Hypertension, chronic. COPD, chronic. Hypercholesterolemia, chronic. GERD, chronic. Chronic back pain. Chronic kidney disease, stage III. History of shingles. Depression, chronic. Obesity with BMI 32.5, chronic. Plan WBC decreased to 10.9. HBG stable at 10.1. Potassium 3.3 with Mg 1.4. Creatinine 0.8. BC showing pansensitive Ecoli. Will change Rocephin to Ampicillin 1 gram IV q 6 hours for coverage. Decrease IVF to 50cc/hr. Replace potassium and magnesium. Mucinex DM BID to help decrease cough and congestion. Ricola prn cough. Acapella to help loosen secretions. CT showed no PE. Will check Echo due to low BP-?effusion. BP improving but still low at times. Continue to hold antihypertensives. Case discussed with CCU nursing. Time spent with patient care 25 minutes. Hospital Course Summary Disclaimer: The visit summary below is not to be considered part of the above Progress Note. Hospital Course: 11/11/16 (Admission) Assessment Sepsis secondary to UTI, present on admission, acute. Hypotension Altered mental status with increased confusion and lethargy, present on admission, acute. Hyponatremia, present on admission, acute. Hypertension, chronic. COPD, chronic. Hypercholesterolemia, chronic. GERD, chronic. Chronic back pain. Chronic kidney disease, stage III. Obesity, chronic. History of shingles. Depression, chronic. Plan Admit to inpatient status under the care of Dr. Andesron. Patient noted to meet sepsis criteria upon admission as indicated by fever ( 101.4), leukocytosis (WBC 16.1), bandemia (10%) and concern for altered mental status and increased confusion. UA confirmed UTI with + nitrite, 50-200 WBC and 3+ bacteria. UA and blood cultures pending. Rocephin 1g IV given in ED. Will continue Rocephin 1g daily for empiric antimicrobial coverage of suspected urinary pathogens. Tylenol as needed pain and fever control. Lactate 1.9 in ED. Will recheck at 2100. Procalcitonin elevated at 2.32. Patient was given 1L NS in ED. Hyponatremia noted on admission with sodium 131. Will continue NS at 125cc/hr for fluid resuscitation. Monitor closely for signs of fluid overload and daily weight. Initial blood pressure in ED was noted to be borderline low at 94/55. Improved with fluid resuscitation. Continue to monitor blood pressure closely and will monitor cardiac function closely on telemetry. Troponin in ED was negative at < 0.012. In light of low blood pressure, will hold home blood pressure medications including Norvasc 5mg, Losartan/HCTZ 50/12.5 and metoprolol XL. Continue home Prilosec for GERD and GI protection. SCDs for DVT prophylaxis. CXR in ED showed no acute cardiopulmonary abnormalities. Continue home inhalers and monitor respiratory function closely. Encourage incentive spirometry for pulmonary toileting. Anemia noted on admission with hemoglobin 10.9. History of chronic anemia. Monitor blood counts closely and continue home B12. Unable to reconcile medications in computer as current medication list has not been verified. Will try and obtain current medication list from [facility]. Upon discharge, patient's care will be returned to her PCP, Dr. Wheatley. 11/12/16 Patient transfer to CCU overnight due to low BP. IVF bolus given. BC positive for E coli - c/s pending. Will check CTA due to increased dyspnea and low BP to exclude PE. Continue Rocephin for antimicrobial support. IVF of NS at 125 for hydration. Start routine Miralax and Senna Plus due to significant constipation. PRN MOM and Dulcolax available. Continue to hold antihypertensives as BP low. Did decrease IVF to 75cc/hr and gave Lasix as breathing more short. Initialed neb treatments. 11/13/16 WBC decreased to 10.9. HBG stable at 10.1. Potassium 3.3 with Mg 1.4. Creatinine 0.8. BC showing pansensitive Ecoli. Will change Rocephin to Ampicillin 1 gram IV q 6 hours for coverage. Decrease IVF to 50cc/hr. Replace potassium and magnesium. Mucinex DM BID to help decrease cough and congestion. Ricola prn cough. Acapella to help loosen secretions. CT showed no PE. Will check Echo due to low BP-?effusion. BP improving but still low at times. Continue to hold antihypertensives.
[2016-11-13] MEDS: MAGNESIUM SULFATE 1gm PREMIX 1 GM/100 ML BAG IV SCH ×2 (10:49→12:03)
[2016-11-13] MEDS: CALCIUM 500 + VIT D 200 TABLET PO SCH (10:49)
[2016-11-13] MEDS: AMPICILLIN 1 GM in NS 100 ML IV SCH ×3 (13:16→23:38)
[2016-11-13] MEDS: GUAIFENESIN/D-METHORPHAN 600mg/30mg TABLET PO SCH ×2 (14:08→20:27)
[2016-11-13] MEDS: SALINE 0.65% NASAL SPRAY 44 ML BOTTLE EA NOSTRIL SCH ×3 (14:10→20:34)
--- NOTE | 2016-11-13 15:10 | Echocardiogram ---
DATE OF SERVICE 11/13/2016 INDICATION Dyspnea. COPD. Assess PA pressure. TECHNICAL QUALITY Technically adequate 2-D, M-mode, Doppler echocardiographic images were submitted for interpretation. The patient was noted to be tachycardic throughout the study. FINDINGS 1. CARDIAC CHAMBERS. All cardiac chamber measurements are normal. Aortic root diameter is normal. RV appears somewhat prominent--measurement still within normal limits and good contractility. 2. LEFT VENTRICLE. Analysis reveals wall thickness is normal. Wall motion analysis is normal. Systolic function is normal. Left ventricle appears hyperdynamic. Ejection fraction is estimated about 75%. Diastolic function assessment was not done, limited in part due to E and A wave merged caused by tachycardia. 3. VALVES. Aortic valve is sclerotic. Valve opening appears normal. Mitral valve exhibits annular calcification with leaflet sclerosis. Valve excursion is normal. Tricuspid valve structure and motion appeared normal. Normal valve excursion. 4. DOPPLER. Analysis shows mild mitral regurgitation, mild pulmonic insufficiency, mild tricuspid regurgitation, and trace aortic regurgitation. No evidence of aortic stenosis. Mildly increased flow velocities throughout appear to be related to a hyperdynamic state. 5. No evidence of pericardial effusion, intracardiac masses or shunts or demonstrable shunts. IMPRESSION 1. Normal cardiac chamber size. 2. Normal LV size and function. Left ventricle appears hyperdynamic with EF of 75%. 3. Sclerotic aortic and mitral valves. 4. Mild mitral regurgitation. 5. Mild tricuspid regurgitation. 6. Moderate pulmonary hypertension, systolic PA pressure estimated at 53 mmHg. 7. Patient is tachycardic throughout the study. 8. Pleural effusion is seen. 9. Technically fair study. [facility]
[2016-11-13] MEDS: ATORVASTATIN 10 MG TABLET PO SCH (20:28)
[2016-11-14] MEDS: HYDROCODONE/APAP 5mg/325mg TABLET PO PRN ×2 (01:00→06:27)
[2016-11-14] MEDS: ALBUTEROL/IPRATROPIUM 2.5mg-0.5mg/3ml NEB AEROSOL PRN ×3 (01:35→22:59)
[2016-11-14] MEDS: AMPICILLIN 1 GM in NS 100 ML IV SCH ×4 (05:04→23:41)
[2016-11-14] MEDS: OMEPRAZOLE 20 MG CAPSULE PO SCH (05:31)
[2016-11-14] MEDS: BUDESONIDE INH.SOLN 0.5mg/2ml NEB AEROSOL SCH ×2 (07:14→20:00)
[2016-11-14] MEDS: ALBUTEROL/IPRATROPIUM 2.5mg-0.5mg/3ml NEB AEROSOL SCH ×4 (07:25→20:00)
[2016-11-14] MEDS: CYANOCOBALAMIN (B-12) 500mcg TABLET PO SCH (08:48)
[2016-11-14] MEDS: DESIPRAMINE 25 MG TABLET PO SCH ×3 (08:48→23:25)
[2016-11-14] MEDS: CALCIUM 500 + VIT D 200 TABLET PO SCH (08:49)
[2016-11-14] MEDS: MAGNESIUM OXIDE 400 MG TABLET PO SCH (08:49)
[2016-11-14] MEDS: SENNA + DOCUSATE TABLET PO SCH ×2 (08:49→23:23)
[2016-11-14] MEDS: ACYCLOVIR 200 MG CAPSULE PO SCH ×2 (08:50→21:41)
[2016-11-14] MEDS: BACLOFEN 10 MG TABLET PO SCH ×3 (08:50→21:45)
[2016-11-14] MEDS: MULTI-VITAMIN PLAIN TABLET PO SCH (08:50)
[2016-11-14] MEDS: ENOXAPARIN 40 MG/0.4 ML INJECTION SQ SCH (08:51)
[2016-11-14] MEDS: POLYETHYL GLYCOL 3350 17gm PACKET PO SCH (08:54)
[2016-11-14] MEDS: PSYLLIUM PACKET PO SCH (10:40)
[2016-11-14] MEDS: GUAIFENESIN/D-METHORPHAN 600mg/30mg TABLET PO SCH ×2 (10:44→23:22)
[2016-11-14] MEDS: SALINE 0.65% NASAL SPRAY 44 ML BOTTLE EA NOSTRIL SCH ×3 (10:45→23:23)
[2016-11-14] MEDS ORDERED: FUROSEMIDE 20 MG/2 ML INJECTION IVP ONE ×2 (12:40→22:35)
--- NOTE | 2016-11-14 13:13 | Progress Note ---
Subjective: F/U: Sepsis, bacteremia with E coli, UTI More somnolent today. Patient sitting in bed with lunch in front of her, head hanging down looking tired. Ate 1/4 of here cod. Oxygen flow increased by nursing as O2 sats decreased this am. Pt feels breathing O2. Does note some congestion to chest and cough. Not reporting pain with breathing. Denies feeling like she need to work more with her breathing. No reported nausea or ab pain. BP improving. Weight is up, I>O. Objective Vital signs: Temperature 98.2 F 11/14/16 11:00 Pulse Rate 105 H 11/14/16 12:00 Respiratory Rate 20 11/14/16 11:00 Blood Pressure 137/83 11/14/16 11:00 Pulse Oximetry 97 11/14/16 11:00 Height/Weight/BMI: Height 1.6 m Weight 87.3 kg Body Mass Index 32.4 - Constitutional Present: moderate distress, well nourished, well developed, obese, somnolent - Routine HEENT Exam Head: Present: normocephalic, atraumatic Eye: Present: EOMI ENT: Present: mucous membranes moist - Routine Respiratory Exam Present: decreased breath sounds, prolonged expiratory phase, respiratory distress (Breathing more labored today), crackles, diminished air movement - Routine Cardiovascular Exam Present: tachycardia (Regular ) - Routine Abdominal Exam Present: soft, non distended, non tender. Absent: normoactive bowel sounds ( Decreased ) - Routine Extremities Exam Present: edema (+3 BLE ), pulses intact. Absent: cyanosis - Routine Musculoskeletal Exam Musculoskeletal: Present: no clubbing or cyanosis - Routine Skin Exam Present: dry, warm - Routine Neurological Exam Present: altered mental status (somnolent ), moving all extremities, vision grossly intact, hearing grossly intact. Absent: motor deficit - Routine Psychiatric Exam Present: cooperative. Absent: anxious, agitated Results - Labs CBC & Chem 7: 11/14/16 05:03 11/14/16 05:03 - ABG Interpretation ABG results: 11/12/16 01:28 VBG pH 7.370 VBG pCO2 44 VBG pO2 40 VBG HCO3 25 VBG Total CO2 26.8 VBG O2 Saturation 73.0 VBG Base Excess -0.1 Assessment and Plan (1) Sepsis Current visit: Yes Status: Acute (2) Urinary tract infection Current visit: Yes Status: Acute (3) Acute hyponatremia Current visit: Yes Status: Acute DVT Prophylaxis: SCD's, Lovenox Resuscitation Status: Full Code Assessment and Plan: Assessment Sepsis secondary to UTI, present on admission, acute. Bacteremia with Ecoli Hypotension (POA) - improved with IVF Altered mental status with increased confusion and lethargy (POA) acute. Hyponatremia (POA) acute. Hypoxia, acute Hypertension, chronic. COPD, chronic. Pulmonary Hypertension, chronic. Hypercholesterolemia, chronic. GERD, chronic. Chronic back pain. Chronic kidney disease, stage III. History of shingles. Depression, chronic. Obesity with BMI 32.5, chronic. Plan Continue Ampicillin for antimicrobial coverage Will stop IVF-concern for volume overload. Lasix 20mg IV x1 and monitor. Echo with hyperdynamic EF of 72% and pulmonary HTN. Wean O2-encourage breathing to help saturations. Continue neb treatments and Mucinex. Monitor lab. Case discussed with CCU nursing. Time spent with patient care 25 minutes. Hospital Course Summary Disclaimer: The visit summary below is not to be considered part of the above Progress Note. Hospital Course: 11/11/16 (Admission) Assessment Sepsis secondary to UTI, present on admission, acute. Hypotension Altered mental status with increased confusion and lethargy, present on admission, acute. Hyponatremia, present on admission, acute. Hypertension, chronic. COPD, chronic. Hypercholesterolemia, chronic. GERD, chronic. Chronic back pain. Chronic kidney disease, stage III. Obesity, chronic. History of shingles. Depression, chronic. Plan Admit to inpatient status under the care of Dr. Anderson. Patient noted to meet sepsis criteria upon admission as indicated by fever ( 101.4), leukocytosis (WBC 16.1), bandemia (10%) and concern for altered mental status and increased confusion. UA confirmed UTI with + nitrite, 50-200 WBC and 3+ bacteria. UA and blood cultures pending. Rocephin 1g IV given in ED. Will continue Rocephin 1g daily for empiric antimicrobial coverage of suspected urinary pathogens. Tylenol as needed pain and fever control. Lactate 1.9 in ED. Will recheck at 2100. Procalcitonin elevated at 2.32. Patient was given 1L NS in ED. Hyponatremia noted on admission with sodium 131. Will continue NS at 125cc/hr for fluid resuscitation. Monitor closely for signs of fluid overload and daily weight. Initial blood pressure in ED was noted to be borderline low at 94/55. Improved with fluid resuscitation. Continue to monitor blood pressure closely and will monitor cardiac function closely on telemetry. Troponin in ED was negative at < 0.012. In light of low blood pressure, will hold home blood pressure medications including Norvasc 5mg, Losartan/HCTZ 50/12.5 and metoprolol XL. Continue home Prilosec for GERD and GI protection. SCDs for DVT prophylaxis. CXR in ED showed no acute cardiopulmonary abnormalities. Continue home inhalers and monitor respiratory function closely. Encourage incentive spirometry for pulmonary toileting. Anemia noted on admission with hemoglobin 10.9. History of chronic anemia. Monitor blood counts closely and continue home B12. Unable to reconcile medications in computer as current medication list has not been verified. Will try and obtain current medication list from [facility]. Upon discharge, patient's care will be returned to her PCP, Dr. Wheatley. 11/12/16 Patient transfer to CCU overnight due to low BP. IVF bolus given. BC positive for E coli - c/s pending. Will check CTA due to increased dyspnea and low BP to exclude PE. Continue Rocephin for antimicrobial support. IVF of NS at 125 for hydration. Start routine Miralax and Senna Plus due to significant constipation. PRN MOM and Dulcolax available. Continue to hold antihypertensives as BP low. Did decrease IVF to 75cc/hr and gave Lasix as breathing more short. Initialed neb treatments. 11/13/16 WBC decreased to 10.9. HBG stable at 10.1. Potassium 3.3 with Mg 1.4. Creatinine 0.8. BC showing pansensitive Ecoli. Will change Rocephin to Ampicillin 1 gram IV q 6 hours for coverage. Decrease IVF to 50cc/hr. Replace potassium and magnesium. Mucinex DM BID to help decrease cough and congestion. Ricola prn cough. Acapella to help loosen secretions. CT showed no PE. Will check Echo due to low BP-?effusion. BP improving but still low at times. Continue to hold antihypertensives. Started BB due to tachycardia. 11/14/16 Continue Ampicillin for antimicrobial coverage Will stop IVF-concern for volume overload. Lasix 20mg IV x1 and monitor. Echo with hyperdynamic EF of 72% and pulmonary HTN. Wean O2-encourage breathing to help saturations. Continue neb treatments and Mucinex.
[2016-11-14] MEDS: ATORVASTATIN 10 MG TABLET PO SCH (21:43)
[2016-11-14] MEDS: METHYLPREDNISOLONE SOD SUCC 125mg/2ml INJECTION IVP SCH (23:26)
[2016-11-15] MEDS: METHYLPREDNISOLONE SOD SUCC 125mg/2ml INJECTION IVP SCH ×2 (05:03→08:50)
[2016-11-15] MEDS: AMPICILLIN 1 GM in NS 100 ML IV SCH ×4 (05:11→23:19)
[2016-11-15] MEDS: OMEPRAZOLE 20 MG CAPSULE PO SCH (05:45)
[2016-11-15] MEDS: BUDESONIDE INH.SOLN 0.5mg/2ml NEB AEROSOL SCH ×2 (07:17→18:49)
[2016-11-15] MEDS: ALBUTEROL/IPRATROPIUM 2.5mg-0.5mg/3ml NEB AEROSOL SCH ×4 (07:17→18:49)
[2016-11-15] MEDS: SENNA + DOCUSATE TABLET PO SCH ×2 (08:49→21:19)
[2016-11-15] MEDS: PSYLLIUM PACKET PO SCH (08:49)
[2016-11-15] MEDS: ENOXAPARIN 40 MG/0.4 ML INJECTION SQ SCH (08:50)
[2016-11-15] MEDS: MULTI-VITAMIN PLAIN TABLET PO SCH (08:51)
[2016-11-15] MEDS: GUAIFENESIN/D-METHORPHAN 600mg/30mg TABLET PO SCH ×2 (08:51→21:19)
[2016-11-15] MEDS: CYANOCOBALAMIN (B-12) 500mcg TABLET PO SCH (08:52)
[2016-11-15] MEDS: DESIPRAMINE 25 MG TABLET PO SCH ×2 (08:52→21:18)
[2016-11-15] MEDS: BACLOFEN 10 MG TABLET PO SCH ×3 (08:53→21:14)
[2016-11-15] MEDS: ACYCLOVIR 200 MG CAPSULE PO SCH ×2 (08:53→21:18)
[2016-11-15] MEDS: MAGNESIUM OXIDE 400 MG TABLET PO SCH (08:53)
[2016-11-15] MEDS: POLYETHYL GLYCOL 3350 17gm PACKET PO SCH (08:53)
[2016-11-15] MEDS: CALCIUM 500 + VIT D 200 TABLET PO SCH (08:53)
[2016-11-15] MEDS: SALINE 0.65% NASAL SPRAY 44 ML BOTTLE EA NOSTRIL SCH ×4 (08:54→21:19)
[2016-11-15] MEDS ORDERED: acetaZOLAMIDE 250 MG TABLET PO ONE (13:30)
--- NOTE | 2016-11-15 13:34 | Progress Note ---
Subjective: F/U: Sepsis, bacteremia with E coli, UTI Still very sleeping. Will awaken to verbal stimuli. Feels 'spacey' in head. Denies pain with breathing or congestion. Little cough, no chest wall pain. No chest pressure or fullness. Appetite fair. No nausea or ab pain. Denies mouth pain. Feels tired and weak in general. Objective Vital signs: Temperature 97.7 F 11/15/16 07:00 Pulse Rate 94 11/15/16 12:00 Respiratory Rate 27 H 11/15/16 10:51 Blood Pressure 184/91 H 11/15/16 10:30 Pulse Oximetry 96 11/15/16 11:01 Height/Weight/BMI: Height 1.6 m Weight 88.1 kg Body Mass Index 32.4 - Constitutional Present: mild distress, well nourished, well developed, obese, somnolent Comments: Appear tired and weak. - Routine HEENT Exam Head: Present: normocephalic, atraumatic Eye: Present: EOMI, PERRL ENT: Present: mucous membranes moist (No thrush ) - Routine Respiratory Exam Present: decreased breath sounds, prolonged expiratory phase, respiratory distress, diminished air movement. Absent: rhonchi, stridor, wheezes, crackles - Routine Cardiovascular Exam Present: RRR, no murmur - Routine Abdominal Exam Present: soft, non distended, non tender. Absent: normoactive bowel sounds ( Decreased ) - Routine Extremities Exam Present: edema (+2 BLE ), pulses intact. Absent: cyanosis, clubbing - Routine Musculoskeletal Exam Musculoskeletal: Present: no clubbing or cyanosis. Absent: normal strength - Routine Skin Exam Present: dry, warm - Routine Neurological Exam Present: CN II-XII intact, vision grossly intact, hearing grossly intact. Absent: motor deficit - Routine Psychiatric Exam Comments: Somnolent. Will answer questions with short phrases. Results - Labs CBC & Chem 7: 11/15/16 04:11 11/15/16 04:11 - ABG Interpretation ABG results: 11/12/16 11/14/16 01:28 22:40 ABG pH 7.389 ABG pCO2 41 ABG pO2 89 ABG HCO3 25 ABG Total CO2 26 ABG O2 Saturation 97.0 ABG Base Excess 0.0 VBG pH 7.370 VBG pCO2 44 VBG pO2 40 VBG HCO3 25 VBG Total CO2 26.8 VBG O2 Saturation 73.0 VBG Base Excess -0.1 Assessment and Plan (1) Sepsis Current visit: Yes Status: Acute (2) Urinary tract infection Current visit: Yes Status: Acute (3) Acute hyponatremia Current visit: Yes Status: Acute DVT Prophylaxis: Lovenox Resuscitation Status: Full Code Assessment and Plan: Assessment Sepsis secondary to UTI, present on admission, acute. Bacteremia with Ecoli Hypotension (POA) - improved with IVF Altered mental status with increased confusion and lethargy (POA) acute. Hyponatremia (POA) acute. Hypoxia, acute Hypertension, chronic. COPD, chronic. Pulmonary Hypertension, chronic. Hypercholesterolemia, chronic. GERD, chronic. Chronic back pain. Chronic kidney disease, stage III. History of shingles. Depression, chronic. Obesity with BMI 32.5, chronic. Plan Blood pressure with persistent elevation. Weight up. Start Lasix 40mg IV q8 hours to help motivate fluid. Increase Potassium to 20 mEq TIDWM due to Lasix use. Diamox 500mg po x1 to decrease potential or alkalosis. Hold on restarting outpatient BP medications until patient better diuresed. BiPAP as needed to help minimize respiratory fatigue. Solu-Medrol started by telehospitalist. Will stop and not appreciating wheezing. ABG with normal CO2 - encourage deep breathing and BiPAP to help maintain ventilation. Decrease Baclofen to 5mg TID due to somnolence. Continue ampicillin for antimicrobial coverage. Recheck BMP in am due to diuretics. CBC in am due to sepsis and leukocytosis. Case discussed with CCU nursing. Time spent with patient care 25 minutes. Hospital Course Summary Disclaimer: The visit summary below is not to be considered part of the above Progress Note. Hospital Course: 11/11/16 (Admission) Assessment Sepsis secondary to UTI, present on admission, acute. Hypotension Altered mental status with increased confusion and lethargy, present on admission, acute. Hyponatremia, present on admission, acute. Hypertension, chronic. COPD, chronic. Hypercholesterolemia, chronic. GERD, chronic. Chronic back pain. Chronic kidney disease, stage III. Obesity, chronic. History of shingles. Depression, chronic. Plan Admit to inpatient status under the care of Dr. Anderson. Patient noted to meet sepsis criteria upon admission as indicated by fever ( 101.4), leukocytosis (WBC 16.1), bandemia (10%) and concern for altered mental status and increased confusion. UA confirmed UTI with + nitrite, 50-200 WBC and 3+ bacteria. UA and blood cultures pending. Rocephin 1g IV given in ED. Will continue Rocephin 1g daily for empiric antimicrobial coverage of suspected urinary pathogens. Tylenol as needed pain and fever control. Lactate 1.9 in ED. Will recheck at 2100. Procalcitonin elevated at 2.32. Patient was given 1L NS in ED. Hyponatremia noted on admission with sodium 131. Will continue NS at 125cc/hr for fluid resuscitation. Monitor closely for signs of fluid overload and daily weight. Initial blood pressure in ED was noted to be borderline low at 94/55. Improved with fluid resuscitation. Continue to monitor blood pressure closely and will monitor cardiac function closely on telemetry. Troponin in ED was negative at < 0.012. In light of low blood pressure, will hold home blood pressure medications including Norvasc 5mg, Losartan/HCTZ 50/12.5 and metoprolol XL. Continue home Prilosec for GERD and GI protection. SCDs for DVT prophylaxis. CXR in ED showed no acute cardiopulmonary abnormalities. Continue home inhalers and monitor respiratory function closely. Encourage incentive spirometry for pulmonary toileting. Anemia noted on admission with hemoglobin 10.9. History of chronic anemia. Monitor blood counts closely and continue home B12. Unable to reconcile medications in computer as current medication list has not been verified. Will try and obtain current medication list from [facility]. Upon discharge, patient's care will be returned to her PCP, Dr. Wheatley. 11/12/16 Patient transfer to CCU overnight due to low BP. IVF bolus given. BC positive for E coli - c/s pending. Will check CTA due to increased dyspnea and low BP to exclude PE. Continue Rocephin for antimicrobial support. IVF of NS at 125 for hydration. Start routine Miralax and Senna Plus due to significant constipation. PRN MOM and Dulcolax available. Continue to hold antihypertensives as BP low. Did decrease IVF to 75cc/hr and gave Lasix as breathing more short. Initialed neb treatments. 11/13/16 WBC decreased to 10.9. HBG stable at 10.1. Potassium 3.3 with Mg 1.4. Creatinine 0.8. BC showing pansensitive Ecoli. Will change Rocephin to Ampicillin 1 gram IV q 6 hours for coverage. Decrease IVF to 50cc/hr. Replace potassium and magnesium. Mucinex DM BID to help decrease cough and congestion. Ricola prn cough. Acapella to help loosen secretions. CT showed no PE. Will check Echo due to low BP-?effusion. BP improving but still low at times. Continue to hold antihypertensives. Started BB due to tachycardia. 11/14/16 Continue Ampicillin for antimicrobial coverage Will stop IVF-concern for volume overload. Lasix 20mg IV x1 and monitor. Echo with hyperdynamic EF of 72% and pulmonary HTN. Wean O2-encourage breathing to help saturations. Continue neb treatments and Mucinex. 11/15/16 Still somnolent. Blood pressure with persistent elevation. Weight up. Start Lasix 40mg IV q8 hours to help motivate fluid. Increase Potassium to 20 mEq TIDWM due to Lasix use. Diamox 500mg po x1 to decrease potential or alkalosis. Hold on restarting outpatient BP medications until patient better diuresed. BiPAP as needed to help minimize respiratory fatigue. Solu-Medrol started by telehospitalist. Will stop and not appreciating wheezing. ABG with normal CO2 - encourage deep breathing and BiPAP to help maintain ventilation. Decrease Baclofen to 5mg TID due to somnolence. Continue ampicillin for antimicrobial coverage. Recheck BMP in am due to diuretics. CBC in am due to sepsis and leukocytosis.
[2016-11-15] MEDS: FUROSEMIDE 40 MG/4 ML INJECTION IVP SCH ×2 (14:36→17:49)
[2016-11-15] MEDS ORDERED: MAGNESIUM OXIDE 400 MG TABLET PO ONE (17:30)
[2016-11-15] MEDS: HYDROCODONE/APAP 5mg/325mg TABLET PO PRN (21:15)
[2016-11-15] MEDS: ATORVASTATIN 10 MG TABLET PO SCH (21:18)
[2016-11-16] MEDS: FUROSEMIDE 40 MG/4 ML INJECTION IVP SCH ×3 (01:27→16:27)
[2016-11-16] MEDS: AMPICILLIN 1 GM in NS 100 ML IV SCH ×4 (04:43→22:55)
[2016-11-16] MEDS: BUDESONIDE INH.SOLN 0.5mg/2ml NEB AEROSOL SCH ×2 (06:35→19:53)
[2016-11-16] MEDS: OMEPRAZOLE 20 MG CAPSULE PO SCH (06:35)
[2016-11-16] MEDS: ALBUTEROL/IPRATROPIUM 2.5mg-0.5mg/3ml NEB AEROSOL SCH ×4 (06:35→19:52)
[2016-11-16] MEDS: SALINE 0.65% NASAL SPRAY 44 ML BOTTLE EA NOSTRIL SCH ×4 (08:06→21:29)
[2016-11-16] MEDS: PSYLLIUM PACKET PO SCH (08:07)
[2016-11-16] MEDS: ENOXAPARIN 40 MG/0.4 ML INJECTION SQ SCH (08:07)
[2016-11-16] MEDS: MULTI-VITAMIN PLAIN TABLET PO SCH (08:08)
[2016-11-16] MEDS: DESIPRAMINE 25 MG TABLET PO SCH ×2 (08:08→21:08)
[2016-11-16] MEDS: GUAIFENESIN/D-METHORPHAN 600mg/30mg TABLET PO SCH ×2 (08:08→21:10)
[2016-11-16] MEDS: CYANOCOBALAMIN (B-12) 500mcg TABLET PO SCH (08:08)
[2016-11-16] MEDS: CALCIUM 500 + VIT D 200 TABLET PO SCH (08:08)
[2016-11-16] MEDS: SENNA + DOCUSATE TABLET PO SCH ×2 (08:08→21:09)
[2016-11-16] MEDS: ACYCLOVIR 200 MG CAPSULE PO SCH ×2 (08:08→21:08)
[2016-11-16] MEDS: MAGNESIUM OXIDE 400 MG TABLET PO SCH (08:09)
[2016-11-16] MEDS: BACLOFEN 10 MG TABLET PO SCH ×3 (08:09→21:10)
[2016-11-16] MEDS: POLYETHYL GLYCOL 3350 17gm PACKET PO SCH (08:18)
--- NOTE | 2016-11-16 10:11 | XRay Report ---
Indication: shortness of air PROCEDURE: XR chest 1V: Encounter: Initial Comparison: November 12, 2016 Findings: Worsening bilateral airspace consolidation with patchy infiltrates throughout both lungs. Small pleural effusions. No pneumothorax. Heart size and mediastinal contours are grossly stable. Impression: Worsening severe pulmonary edema. There is a preliminary report by [facility]. .
[2016-11-16] MEDS ORDERED: acetaZOLAMIDE SR 500 MG CAPSULE PO ONE (10:39)
[2016-11-16] MEDS ORDERED: MAGNESIUM OXIDE 400 MG TABLET PO ONE ×2 (12:30→17:30)
--- NOTE | 2016-11-16 16:43 | Progress Note ---
Subjective: F/U: Sepsis, bacteremia with E coli, UTI Sleepy this afternoon. Will wake to gentle touch stimulation. Converses with short phases. Nursing report oral intake of food doing well-no pain with eating or nausea. No stools. Patient still reports SOA and chest congestion. O2 needs decreasing-on 5L with 100% saturations. Little cough. Urine output increased with Lasix. No temp elevations. Objective Vital signs: Temperature 97.1 F 11/16/16 07:00 Pulse Rate 96 11/16/16 12:00 Respiratory Rate 20 11/16/16 14:32 Blood Pressure 158/89 H 11/16/16 12:00 Pulse Oximetry 97 11/16/16 14:32 Height/Weight/BMI: Height 1.6 m Weight 85.7 kg Body Mass Index 32.4 - Constitutional Present: mild distress, well nourished, well developed, somnolent - Routine HEENT Exam Head: Present: normocephalic, atraumatic Eye: Present: EOMI, PERRL ENT: Present: mucous membranes moist - Routine Respiratory Exam Present: decreased breath sounds, prolonged expiratory phase, crackles, distant breath sounds, diminished air movement. Absent: respiratory distress, wheezes - Routine Cardiovascular Exam Present: RRR, no murmur - Routine Abdominal Exam Present: soft, non distended, non tender. Absent: normoactive bowel sounds, guarding, firm - Routine Extremities Exam Present: edema (+2 BLE ), pulses intact - Routine Musculoskeletal Exam Musculoskeletal: Present: no clubbing or cyanosis - Routine Skin Exam Present: dry, warm - Routine Neurological Exam Present: alert, CN II-XII intact, moving all extremities, hearing grossly intact - Routine Psychiatric Exam Present: normal affect. Absent: anxious, agitated Results - Labs CBC & Chem 7: 11/16/16 04:41 11/16/16 04:41 - ABG Interpretation ABG results: 11/12/16 11/14/16 01:28 22:40 ABG pH 7.389 ABG pCO2 41 ABG pO2 89 ABG HCO3 25 ABG Total CO2 26 ABG O2 Saturation 97.0 ABG Base Excess 0.0 VBG pH 7.370 VBG pCO2 44 VBG pO2 40 VBG HCO3 25 VBG Total CO2 26.8 VBG O2 Saturation 73.0 VBG Base Excess -0.1 Assessment and Plan (1) Sepsis Current visit: Yes Status: Acute (2) Urinary tract infection Current visit: Yes Status: Acute (3) Acute hyponatremia Current visit: Yes Status: Acute DVT Prophylaxis: SCD's Resuscitation Status: Full Code Assessment and Plan: Assessment Sepsis secondary to UTI, present on admission, acute. Bacteremia with Ecoli Hypotension (POA) - improved with IVF Altered mental status with increased confusion and lethargy (POA) acute. Hyponatremia (POA) acute. Hypoxia, acute Hypertension, chronic. COPD, chronic. Pulmonary fibrosis, chronic. Pulmonary Hypertension, chronic. Hypercholesterolemia, chronic. GERD, chronic. Chronic back pain. Chronic kidney disease, stage III. History of shingles. Depression, chronic. Obesity with BMI 32.5, chronic. Plan Urine output increase and weight/edema decreasing with Lasix. Creatinine stable at 0.8. Will continue Lasix 40mg IV q 8 hours. Diamox 500mg this morning and evening. Additional oral potassium and magnesium due to decrease. Recheck CXR in am to evaluate pulmonary edema. Nursing to continue to wean O2 - acceptable to have saturations in mid 90s. Continue ampicillin for coverage. Work with bowel function (chronically constipated and has to disimpact self at home). Increase Senna Plus to BID. Encourage rectal Dulcolax. PRN Fleets. Recheck BMP and Mg in am due to diuretics. Check CBC in am due to leukocytosis. Case discussed with CCU nursing. Time spent with patient care 25 minutes. Hospital Course Summary Disclaimer: The visit summary below is not to be considered part of the above Progress Note. Hospital Course: 11/11/16 (Admission) Assessment Sepsis secondary to UTI, present on admission, acute. Hypotension Altered mental status with increased confusion and lethargy, present on admission, acute. Hyponatremia, present on admission, acute. Hypertension, chronic. COPD, chronic. Hypercholesterolemia, chronic. GERD, chronic. Chronic back pain. Chronic kidney disease, stage III. Obesity, chronic. History of shingles. Depression, chronic. Plan Admit to inpatient status under the care of Dr. Anderson. Patient noted to meet sepsis criteria upon admission as indicated by fever ( 101.4), leukocytosis (WBC 16.1), bandemia (10%) and concern for altered mental status and increased confusion. UA confirmed UTI with + nitrite, 50-200 WBC and 3+ bacteria. UA and blood cultures pending. Rocephin 1g IV given in ED. Will continue Rocephin 1g daily for empiric antimicrobial coverage of suspected urinary pathogens. Tylenol as needed pain and fever control. Lactate 1.9 in ED. Will recheck at 2100. Procalcitonin elevated at 2.32. Patient was given 1L NS in ED. Hyponatremia noted on admission with sodium 131. Will continue NS at 125cc/hr for fluid resuscitation. Monitor closely for signs of fluid overload and daily weight. Initial blood pressure in ED was noted to be borderline low at 94/55. Improved with fluid resuscitation. Continue to monitor blood pressure closely and will monitor cardiac function closely on telemetry. Troponin in ED was negative at < 0.012. In light of low blood pressure, will hold home blood pressure medications including Norvasc 5mg, Losartan/HCTZ 50/12.5 and metoprolol XL. Continue home Prilosec for GERD and GI protection. SCDs for DVT prophylaxis. CXR in ED showed no acute cardiopulmonary abnormalities. Continue home inhalers and monitor respiratory function closely. Encourage incentive spirometry for pulmonary toileting. Anemia noted on admission with hemoglobin 10.9. History of chronic anemia. Monitor blood counts closely and continue home B12. Unable to reconcile medications in computer as current medication list has not been verified. Will try and obtain current medication list from [facility]. Upon discharge, patient's care will be returned to her PCP, Dr. Wheatley. 11/12/16 Patient transfer to CCU overnight due to low BP. IVF bolus given. BC positive for E coli - c/s pending. Will check CTA due to increased dyspnea and low BP to exclude PE. Continue Rocephin for antimicrobial support. IVF of NS at 125 for hydration. Start routine Miralax and Senna Plus due to significant constipation. PRN MOM and Dulcolax available. Continue to hold antihypertensives as BP low. Did decrease IVF to 75cc/hr and gave Lasix as breathing more short. Initialed neb treatments. 11/13/16 WBC decreased to 10.9. HBG stable at 10.1. Potassium 3.3 with Mg 1.4. Creatinine 0.8. BC showing pansensitive Ecoli. Will change Rocephin to Ampicillin 1 gram IV q 6 hours for coverage. Decrease IVF to 50cc/hr. Replace potassium and magnesium. Mucinex DM BID to help decrease cough and congestion. Ricola prn cough. Acapella to help loosen secretions. CT showed no PE. Will check Echo due to low BP-?effusion. BP improving but still low at times. Continue to hold antihypertensives. Started BB due to tachycardia. 11/14/16 Continue Ampicillin for antimicrobial coverage Will stop IVF-concern for volume overload. Lasix 20mg IV x1 and monitor. Echo with hyperdynamic EF of 72% and pulmonary HTN. Wean O2-encourage breathing to help saturations. Continue neb treatments and Mucinex. 11/15/16 Still somnolent. Blood pressure with persistent elevation. Weight up. Start Lasix 40mg IV q8 hours to help motivate fluid. Increase Potassium to 20 mEq TIDWM due to Lasix use. Diamox 500mg po x1 to decrease potential or alkalosis. Hold on restarting outpatient BP medications until patient better diuresed. BiPAP as needed to help minimize respiratory fatigue. Solu-Medrol started by telehospitalist. Will stop and not appreciating wheezing. ABG with normal CO2 - encourage deep breathing and BiPAP to help maintain ventilation. Decrease Baclofen to 5mg TID due to somnolence. Continue ampicillin for antimicrobial coverage. Recheck BMP in am due to diuretics. CBC in am due to sepsis and leukocytosis. 11/16/16 Urine output increase and weight/edema decreasing with Lasix. Creatinine stable at 0.8. Will continue Lasix 40mg IV q 8 hours. Diamox 500mg this morning and evening. Additional oral potassium and magnesium due to decrease. Recheck CXR in am to evaluate pulmonary edema. Nursing to continue to wean O2 - acceptable to have saturations in mid 90s. Continue ampicillin for coverage. Work with bowel function (chronically constipated and has to disimpact self at home). Increase Senna Plus to BID. Encourage rectal Dulcolax. PRN Fleets.
[2016-11-16] MEDS ORDERED: FLEET PHOSPHO - SODA ENEMA 133ml PR PRN (16:51)
[2016-11-16] MEDS ORDERED: acetaZOLAMIDE 250 MG TABLET PO ONE (18:00)
[2016-11-16] MEDS: HYDROCODONE/APAP 5mg/325mg TABLET PO PRN (21:08)
[2016-11-16] MEDS: ATORVASTATIN 10 MG TABLET PO SCH (21:10)
[2016-11-17] MEDS: FUROSEMIDE 40 MG/4 ML INJECTION IVP SCH ×3 (01:02→16:57)
[2016-11-17] MEDS: AMPICILLIN 1 GM in NS 100 ML IV SCH ×4 (04:41→22:51)
[2016-11-17] MEDS: OMEPRAZOLE 20 MG CAPSULE PO SCH (06:17)
[2016-11-17] MEDS: BUDESONIDE INH.SOLN 0.5mg/2ml NEB AEROSOL SCH ×2 (08:33→18:55)
[2016-11-17] MEDS: ALBUTEROL/IPRATROPIUM 2.5mg-0.5mg/3ml NEB AEROSOL SCH ×4 (08:33→18:55)
[2016-11-17] MEDS: ENOXAPARIN 40 MG/0.4 ML INJECTION SQ SCH (08:59)
[2016-11-17] MEDS: POLYETHYL GLYCOL 3350 17gm PACKET PO SCH ×2 (08:59→22:03)
[2016-11-17] MEDS: PSYLLIUM PACKET PO SCH (08:59)
[2016-11-17] MEDS: BACLOFEN 10 MG TABLET PO SCH ×3 (09:00→22:05)
[2016-11-17] MEDS: ACYCLOVIR 200 MG CAPSULE PO SCH ×2 (09:00→22:04)
[2016-11-17] MEDS: CALCIUM 500 + VIT D 200 TABLET PO SCH (09:01)
[2016-11-17] MEDS: DESIPRAMINE 25 MG TABLET PO SCH ×2 (09:01→22:04)
[2016-11-17] MEDS: CYANOCOBALAMIN (B-12) 500mcg TABLET PO SCH (09:01)
[2016-11-17] MEDS: MULTI-VITAMIN PLAIN TABLET PO SCH (09:02)
[2016-11-17] MEDS: SENNA + DOCUSATE TABLET PO SCH ×2 (09:02→22:04)
[2016-11-17] MEDS: SALINE 0.65% NASAL SPRAY 44 ML BOTTLE EA NOSTRIL SCH ×4 (09:02→22:08)
--- NOTE | 2016-11-17 09:20 | XRay Report ---
Indication: F/U pulmonary edema Procedure: XR chest 1V: Encounter: Subsequent Comparison: Chest radiographs 11/14/2016 and 11/11/2016, pulmonary CT angiogram 11/12/2016 Technique: A single portable AP chest radiograph was obtained. Findings: Life support devices: Dorsal column spinal stimulator device again noted. Lungs and airways: Normal lung volumes. Similar to mildly improved bilateral interstitial and alveolar edema. Pleura: No obvious pleural effusions appreciated by limited frontal only radiography. No pneumothorax. Heart and mediastinum: The cardiomediastinal silhouette and great vessels appear unchanged with redemonstration of cardiomegaly and aortic atherosclerosis. Osseous structures and soft tissues: No acute osseous abnormality is seen. Degenerative changes of the shoulders and thoracic spine. Impression: Similar to mildly improved bilateral interstitial and alveolar edema. .
[2016-11-17] MEDS: GUAIFENESIN/D-METHORPHAN 600mg/30mg TABLET PO SCH ×2 (12:21→22:05)
[2016-11-17] MEDS: MAGNESIUM OXIDE 400 MG TABLET PO SCH (12:21)
--- NOTE | 2016-11-17 16:36 | Progress Note ---
Subjective: Mrs. Azul was on BiPAP and drowsy when seen. She offered little history indicating only that she did not feel short of breath. Nursing reports that she has been oriented to name and tolerated BiPAP well this morning and overnight. She is tolerating a pured diet, require disimpaction this morning for constipation, and required lorazepam last night for restlessness. Objective Vital signs: Temperature 97.8 F 11/17/16 16:03 Pulse Rate 90 11/17/16 16:09 Respiratory Rate 33 H 11/17/16 16:03 Blood Pressure 143/73 H 11/17/16 16:03 Pulse Oximetry 98-3L 11/17/16 16:03 I/O [id number]/4165 EXAM General-drowsy, awakens slowly during examination and follow simple commands HEENT-conjunctiva clear, sclera anicteric, conjugate gaze, pupils equal Lungs-respirations nonlabored. 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, wiggles toes and withdraws feet symmetrically to tickle Psych-dull - Height/Weight/BMI: Height 1.6 m Weight 81.8 kg Body Mass Index 32.4 Results - Labs CBC & Chem 7: 11/17/16 05:03 11/17/16 05:03 Labs: Differential: Segs 60, bands 4, lymphocytes 21, monocytes 15 Magnesium 1.6 - ABG Interpretation ABG results: 11/12/16 11/14/16 01:28 22:40 ABG pH 7.389 ABG pCO2 41 ABG pO2 89 ABG HCO3 25 ABG Total CO2 26 ABG O2 Saturation 97.0 ABG Base Excess 0.0 VBG pH 7.370 VBG pCO2 44 VBG pO2 40 VBG HCO3 25 VBG Total CO2 26.8 VBG O2 Saturation 73.0 VBG Base Excess -0.1 - Imaging and Cardiology Chest x-ray Status: image reviewed by me (cardiomegaly, residual increased interstitial markings c/w resolving pulmonary edema) Assessment and Plan (1) Sepsis Current visit: Yes Status: Acute (2) Urinary tract infection Current visit: Yes Status: Acute DVT Prophylaxis: Lovenox GI Prophylaxis: other (omeprazole) Resuscitation Status: Full Code Assessment and Plan: Assessment Sepsis secondary to UTI, present on admission, acute. Bacteremia with Ecoli Hypotension (POA) - resolved with IVF Altered mental status with increased confusion and lethargy (POA) acute. Pulmonary edema, acute Hyponatremia (POA) acute. Hypoxia, acute Hypertension, chronic. COPD, chronic. Pulmonary fibrosis, chronic. Pulmonary Hypertension, chronic. Hypercholesterolemia, chronic. GERD, chronic. Chronic back pain. Chronic kidney disease, stage III. History of shingles. Depression, chronic. Obesity with BMI 32.5, chronic. Plan Diuresed well with Lasix/Diamox yesterday. Weight down 4 kg. Continue Lasix, reassess in a.m. Oxygenation improving with diuresis. Wean as saturation permits. Continue ampicillin for coverage. Convert to amoxicillin when consistently taking oral medications well to complete 2 weeks therapy. Leukocytosis normalizing. Work with bowel function (chronically constipated and has to disimpact self at home). Disimpact at this morning. Increase MiraLAX to BID; Senna Plus BID. Encourage rectal Dulcolax. PRN Fleets. Macrocytic anemia, present on admission-check B-12/TSH Hyponatremia has resolved, blood pressure stable. History provided by nursing, chest x-ray reviewed by myself. Hospital Course Summary Disclaimer: The visit summary below is not to be considered part of the above Progress Note. Hospital Course: 11/11/16 (Admission) Assessment Sepsis secondary to UTI, present on admission, acute. Hypotension Altered mental status with increased confusion and lethargy, present on admission, acute. Hyponatremia, present on admission, acute. Hypertension, chronic. COPD, chronic. Hypercholesterolemia, chronic. GERD, chronic. Chronic back pain. Chronic kidney disease, stage III. Obesity, chronic. History of shingles. Depression, chronic. Plan Admit to inpatient status under the care of Dr. Anderson. Patient noted to meet sepsis criteria upon admission as indicated by fever ( 101.4), leukocytosis (WBC 16.1), bandemia (10%) and concern for altered mental status and increased confusion. UA confirmed UTI with + nitrite, 50-200 WBC and 3+ bacteria. UA and blood cultures pending. Rocephin 1g IV given in ED. Will continue Rocephin 1g daily for empiric antimicrobial coverage of suspected urinary pathogens. Tylenol as needed pain and fever control. Lactate 1.9 in ED. Will recheck at 2100. Procalcitonin elevated at 2.32. Patient was given 1L NS in ED. Hyponatremia noted on admission with sodium 131. Will continue NS at 125cc/hr for fluid resuscitation. Monitor closely for signs of fluid overload and daily weight. Initial blood pressure in ED was noted to be borderline low at 94/55. Improved with fluid resuscitation. Continue to monitor blood pressure closely and will monitor cardiac function closely on telemetry. Troponin in ED was negative at < 0.012. In light of low blood pressure, will hold home blood pressure medications including Norvasc 5mg, Losartan/HCTZ 50/12.5 and metoprolol XL. Continue home Prilosec for GERD and GI protection. SCDs for DVT prophylaxis. CXR in ED showed no acute cardiopulmonary abnormalities. Continue home inhalers and monitor respiratory function closely. Encourage incentive spirometry for pulmonary toileting. Anemia noted on admission with hemoglobin 10.9. History of chronic anemia. Monitor blood counts closely and continue home B12. Unable to reconcile medications in computer as current medication list has not been verified. Will try and obtain current medication list from [facility]. Upon discharge, patient's care will be returned to her PCP, Dr. Wheatley. 11/12/16 Patient transfer to CCU overnight due to low BP. IVF bolus given. BC positive for E coli - c/s pending. Will check CTA due to increased dyspnea and low BP to exclude PE. Continue Rocephin for antimicrobial support. IVF of NS at 125 for hydration. Start routine Miralax and Senna Plus due to significant constipation. PRN MOM and Dulcolax available. Continue to hold antihypertensives as BP low. Did decrease IVF to 75cc/hr and gave Lasix as breathing more short. Initialed neb treatments. 11/13/16 WBC decreased to 10.9. HBG stable at 10.1. Potassium 3.3 with Mg 1.4. Creatinine 0.8. BC showing pansensitive Ecoli. Will change Rocephin to Ampicillin 1 gram IV q 6 hours for coverage. Decrease IVF to 50cc/hr. Replace potassium and magnesium. Mucinex DM BID to help decrease cough and congestion. Ricola prn cough. Acapella to help loosen secretions. CT showed no PE. Will check Echo due to low BP-?effusion. BP improving but still low at times. Continue to hold antihypertensives. Started BB due to tachycardia. 11/14/16 Continue Ampicillin for antimicrobial coverage Will stop IVF-concern for volume overload. Lasix 20mg IV x1 and monitor. Echo with hyperdynamic EF of 72% and pulmonary HTN. Wean O2-encourage breathing to help saturations. Continue neb treatments and Mucinex. 11/15/16 Still somnolent. Blood pressure with persistent elevation. Weight up. Start Lasix 40mg IV q8 hours to help motivate fluid. Increase Potassium to 20 mEq TIDWM due to Lasix use. Diamox 500mg po x1 to decrease potential or alkalosis. Hold on restarting outpatient BP medications until patient better diuresed. BiPAP as needed to help minimize respiratory fatigue. Solu-Medrol started by telehospitalist. Will stop and not appreciating wheezing. ABG with normal CO2 - encourage deep breathing and BiPAP to help maintain ventilation. Decrease Baclofen to 5mg TID due to somnolence. Continue ampicillin for antimicrobial coverage. Recheck BMP in am due to diuretics. CBC in am due to sepsis and leukocytosis. 11/16/16 Urine output increase and weight/edema decreasing with Lasix. Creatinine stable at 0.8. Will continue Lasix 40mg IV q 8 hours. Diamox 500mg this morning and evening. Additional oral potassium and magnesium due to decrease. Recheck CXR in am to evaluate pulmonary edema. Nursing to continue to wean O2 - acceptable to have saturations in mid 90s. Continue ampicillin for coverage. Work with bowel function (chronically constipated and has to disimpact self at home). Increase Senna Plus to BID. Encourage rectal Dulcolax. PRN Fleets. 11/17/16 Diuresed well with Lasix/Diamox yesterday. Weight down 4 kg. Continue Lasix, reassess in a.m. Oxygenation improving with diuresis. Wean as saturation permits. Continue ampicillin for coverage. Convert to amoxicillin when consistently taking oral medications well to complete 2 weeks therapy. Leukocytosis normalizing. Work with bowel function (chronically constipated and has to disimpact self at home). Disimpact at this morning. Increase MiraLAX to BID; Senna Plus BID. Encourage rectal Dulcolax. PRN Fleets. Macrocytic anemia, present on admission-check B-12/TSH Hyponatremia has resolved, blood pressure stable.
[2016-11-17] MEDS: ATORVASTATIN 10 MG TABLET PO SCH (22:04)
[2016-11-17] MEDS: DIVALPROEX SPRINKLE 125 MG CAPSULE PO SCH (22:50)
[2016-11-18] MEDS: FUROSEMIDE 40 MG/4 ML INJECTION IVP SCH ×2 (01:07→08:30)
[2016-11-18] MEDS: AMPICILLIN 1 GM in NS 100 ML IV SCH ×4 (04:20→23:31)
[2016-11-18] MEDS: SALINE FLUSH 10ml SYRINGE IV PRN ×2 (04:21→23:33)
[2016-11-18] MEDS: NS FLUSH BAG 500ml IV PRN ×2 (04:22→17:09)
[2016-11-18] MEDS: OMEPRAZOLE 20 MG CAPSULE PO SCH (06:11)
[2016-11-18] MEDS: BUDESONIDE INH.SOLN 0.5mg/2ml NEB AEROSOL SCH ×2 (07:00→20:33)
[2016-11-18] MEDS: ALBUTEROL/IPRATROPIUM 2.5mg-0.5mg/3ml NEB AEROSOL SCH ×4 (07:03→20:33)
[2016-11-18] MEDS: DIVALPROEX SPRINKLE 125 MG CAPSULE PO SCH ×4 (08:23→21:12)
[2016-11-18] MEDS: MULTI-VITAMIN PLAIN TABLET PO SCH (08:24)
[2016-11-18] MEDS: SENNA + DOCUSATE TABLET PO SCH ×2 (08:24→21:26)
[2016-11-18] MEDS: ACYCLOVIR 200 MG CAPSULE PO SCH ×2 (08:27→21:13)
[2016-11-18] MEDS: CALCIUM 500 + VIT D 200 TABLET PO SCH (08:27)
[2016-11-18] MEDS: BACLOFEN 10 MG TABLET PO SCH ×3 (08:28→21:14)
[2016-11-18] MEDS: DESIPRAMINE 25 MG TABLET PO SCH ×2 (08:28→21:13)
[2016-11-18] MEDS: CYANOCOBALAMIN (B-12) 500mcg TABLET PO SCH (08:29)
[2016-11-18] MEDS: GUAIFENESIN/D-METHORPHAN 600mg/30mg TABLET PO SCH ×2 (08:29→21:13)
[2016-11-18] MEDS: MAGNESIUM OXIDE 400 MG TABLET PO SCH (08:29)
[2016-11-18] MEDS: PSYLLIUM PACKET PO SCH (08:30)
[2016-11-18] MEDS: POLYETHYL GLYCOL 3350 17gm PACKET PO SCH ×2 (08:30→21:03)
[2016-11-18] MEDS: ENOXAPARIN 40 MG/0.4 ML INJECTION SQ SCH (08:30)
[2016-11-18] MEDS: SALINE 0.65% NASAL SPRAY 44 ML BOTTLE EA NOSTRIL SCH ×4 (08:30→21:27)
--- NOTE | 2016-11-18 15:45 | Progress Note ---
Subjective: Kait was off BiPAP when seen in more alert than yesterday but provided little information. She tended to respond yes to most questions asked and nursing contradicted many of her responses. She describes discomfort with breathing and cough (nursing said she hasn't coughed at all today). Patient reported that she is nauseated and not eating very well (nursing indicated she is eating 100% of her meals). Patient complained of chills but no fevers. Patient indicated she was having some pain but could not identify where and told me that she wears 12 L of oxygen at home although she is currently on 2 L. Nursing reports that she' s quite weak and requires encouragement to complete tasks Objective Vital signs: Temperature 98.8 F 11/18/16 14:10 Pulse Rate 97 11/18/16 14:10 Respiratory Rate 20 11/18/16 15:13 Blood Pressure 136/86 11/18/16 14:10 Pulse Oximetry 97 - 2L 11/18/16 15:13 I/O [id number] EXAM General-NAD, alert, slow verbal responses HEENT-conjunctiva clear, conjugate gaze, oropharynx clear, neck supple without adenopathy Lungs-respirations nonlabored, good airflow, breath sounds clear anteriorly/ laterally Cardiac-regular rhythm, S1-S2 Abd-soft, nontender, bowel sounds present Ext-trace edema Neuro-moving upper extremities well, sensation intact upper extremities Psych-oriented to [facility], 2017; dull - Height/Weight/BMI: Height 1.6 m Weight 81.8 kg Body Mass Index 32.4 Results - Labs CBC & Chem 7: 11/18/16 04:23 11/18/16 04:23 Labs: Differential: 46 neutrophils, 6 bands, 34 lymphocytes, 16 monocytes, 1 eosinophil TSH 4.69; free T4 and B-12 pending - ABG Interpretation ABG results: 11/12/16 11/14/16 01:28 22:40 ABG pH 7.389 ABG pCO2 41 ABG pO2 89 ABG HCO3 25 ABG Total CO2 26 ABG O2 Saturation 97.0 ABG Base Excess 0.0 VBG pH 7.370 VBG pCO2 44 VBG pO2 40 VBG HCO3 25 VBG Total CO2 26.8 VBG O2 Saturation 73.0 VBG Base Excess -0.1 Assessment and Plan (1) Sepsis Current visit: Yes Status: Acute (2) Urinary tract infection Current visit: Yes Status: Acute DVT Prophylaxis: Lovenox GI Prophylaxis: other (omeprazole) Resuscitation Status: Full Code Assessment and Plan: Assessment Sepsis secondary to UTI, present on admission, acute. Bacteremia with Ecoli Hypotension (POA) - resolved with IVF Altered mental status with increased confusion and lethargy (POA) acute. Pulmonary edema, acute Hyponatremia (POA) acute. Hypoxia, acute Hypertension, chronic. COPD, chronic. Pulmonary fibrosis, chronic. Pulmonary Hypertension, chronic. Hypercholesterolemia, chronic. GERD, chronic. Chronic back pain. Chronic kidney disease, stage III. History of shingles. Depression, chronic. Obesity with BMI 32.5, chronic. Plan Diuresed well with Lasix or Lasix/Diamox the past 2 days. Weight down almost 6 kg and BUN/creatinine up slightly today. Continue Lasix at 40 mg daily instead of every 8 hours and monitor renal function/oxygen demand. Oxygenation improving with diuresis. Wean as saturation permits. Currently on 2 L-does not appear to have been on oxygen prior to admission. Continue ampicillin for coverage of Escherichia coli. Convert to amoxicillin when consistently taking oral medications well to complete 2 weeks therapy. Day 8 antibiotics (ceftriaxone 10/3-10/5, ampicillin 10/5-present) Leukocytosis improved. Continue bowel regimen-disimpacted yesterday. Macrocytic anemia, present on admission-check B-12/TSH Hyponatremia has resolved, blood pressure stable. Stable for transfer out of ICU. PT/OT consulted. Hospital Course Summary Disclaimer: The visit summary below is not to be considered part of the above Progress Note. Hospital Course: 11/11/16 (Admission) Assessment Sepsis secondary to UTI, present on admission, acute. Hypotension Altered mental status with increased confusion and lethargy, present on admission, acute. Hyponatremia, present on admission, acute. Hypertension, chronic. COPD, chronic. Hypercholesterolemia, chronic. GERD, chronic. Chronic back pain. Chronic kidney disease, stage III. Obesity, chronic. History of shingles. Depression, chronic. Plan Admit to inpatient status under the care of Dr. Anderson. Patient noted to meet sepsis criteria upon admission as indicated by fever ( 101.4), leukocytosis (WBC 16.1), bandemia (10%) and concern for altered mental status and increased confusion. UA confirmed UTI with + nitrite, 50-200 WBC and 3+ bacteria. UA and blood cultures pending. Rocephin 1g IV given in ED. Will continue Rocephin 1g daily for empiric antimicrobial coverage of suspected urinary pathogens. Tylenol as needed pain and fever control. Lactate 1.9 in ED. Will recheck at 2100. Procalcitonin elevated at 2.32. Patient was given 1L NS in ED. Hyponatremia noted on admission with sodium 131. Will continue NS at 125cc/hr for fluid resuscitation. Monitor closely for signs of fluid overload and daily weight. Initial blood pressure in ED was noted to be borderline low at 94/55. Improved with fluid resuscitation. Continue to monitor blood pressure closely and will monitor cardiac function closely on telemetry. Troponin in ED was negative at < 0.012. In light of low blood pressure, will hold home blood pressure medications including Norvasc 5mg, Losartan/HCTZ 50/12.5 and metoprolol XL. Continue home Prilosec for GERD and GI protection. SCDs for DVT prophylaxis. CXR in ED showed no acute cardiopulmonary abnormalities. Continue home inhalers and monitor respiratory function closely. Encourage incentive spirometry for pulmonary toileting. Anemia noted on admission with hemoglobin 10.9. History of chronic anemia. Monitor blood counts closely and continue home B12. Unable to reconcile medications in computer as current medication list has not been verified. Will try and obtain current medication list from [facility]. Upon discharge, patient's care will be returned to her PCP, Dr. Wheatlye. 11/12/16 Patient transfer to CCU overnight due to low BP. IVF bolus given. BC positive for E coli - c/s pending. Will check CTA due to increased dyspnea and low BP to exclude PE. Continue Rocephin for antimicrobial support. IVF of NS at 125 for hydration. Start routine Miralax and Senna Plus due to significant constipation. PRN MOM and Dulcolax available. Continue to hold antihypertensives as BP low. Did decrease IVF to 75cc/hr and gave Lasix as breathing more short. Initialed neb treatments. 11/13/16 WBC decreased to 10.9. HBG stable at 10.1. Potassium 3.3 with Mg 1.4. Creatinine 0.8. BC showing pansensitive Ecoli. Will change Rocephin to Ampicillin 1 gram IV q 6 hours for coverage. Decrease IVF to 50cc/hr. Replace potassium and magnesium. Mucinex DM BID to help decrease cough and congestion. Ricola prn cough. Acapella to help loosen secretions. CT showed no PE. Will check Echo due to low BP-?effusion. BP improving but still low at times. Continue to hold antihypertensives. Started BB due to tachycardia. 11/14/16 Continue Ampicillin for antimicrobial coverage Will stop IVF-concern for volume overload. Lasix 20mg IV x1 and monitor. Echo with hyperdynamic EF of 72% and pulmonary HTN. Wean O2-encourage breathing to help saturations. Continue neb treatments and Mucinex. 11/15/16 Still somnolent. Blood pressure with persistent elevation. Weight up. Start Lasix 40mg IV q8 hours to help motivate fluid. Increase Potassium to 20 mEq TIDWM due to Lasix use. Diamox 500mg po x1 to decrease potential or alkalosis. Hold on restarting outpatient BP medications until patient better diuresed. BiPAP as needed to help minimize respiratory fatigue. Solu-Medrol started by telehospitalist. Will stop and not appreciating wheezing. ABG with normal CO2 - encourage deep breathing and BiPAP to help maintain ventilation. Decrease Baclofen to 5mg TID due to somnolence. Continue ampicillin for antimicrobial coverage. Recheck BMP in am due to diuretics. CBC in am due to sepsis and leukocytosis. 11/16/16 Urine output increase and weight/edema decreasing with Lasix. Creatinine stable at 0.8. Will continue Lasix 40mg IV q 8 hours. Diamox 500mg this morning and evening. Additional oral potassium and magnesium due to decrease. Recheck CXR in am to evaluate pulmonary edema. Nursing to continue to wean O2 - acceptable to have saturations in mid 90s. Continue ampicillin for coverage. Work with bowel function (chronically constipated and has to disimpact self at home). Increase Senna Plus to BID. Encourage rectal Dulcolax. PRN Fleets. 11/17/16 Diuresed well with Lasix/Diamox yesterday. Weight down 4 kg. Continue Lasix, reassess in a.m. Oxygenation improving with diuresis. Wean as saturation permits. Continue ampicillin for coverage. Convert to amoxicillin when consistently taking oral medications well to complete 2 weeks therapy. Leukocytosis normalizing. Work with bowel function (chronically constipated and has to disimpact self at home). Disimpact at this morning. Increase MiraLAX to BID; Senna Plus BID. Encourage rectal Dulcolax. PRN Fleets. Macrocytic anemia, present on admission-check B-12/TSH Hyponatremia has resolved, blood pressure stable. 11/18/16 Diuresed well with Lasix or Lasix/Diamox the past 2 days. Weight down but BUN/ creatinine up slightly today. Continue Lasix at 40 mg daily instead of every 8 hours and monitor renal function/oxygen demand. Oxygenation improving with diuresis. Wean as saturation permits. Currently on 2 L-does not appear to have been on oxygen prior to admission. Continue ampicillin for coverage of Escherichia coli. Convert to amoxicillin when consistently taking oral medications well to complete 2 weeks therapy. Day 8 antibiotics (ceftriaxone 11/11-11/13, ampicillin 11/13-present) Leukocytosis improved. Continue bowel regimen-disimpacted yesterday. Macrocytic anemia, present on admission-check B-12/TSH Hyponatremia has resolved, blood pressure stable. Stable for transfer out of ICU. PT/OT consulted.
[2016-11-18] MEDS ORDERED: ZOLPIDEM 5 MG TABLET PO PRN (15:49)
[2016-11-18] MEDS: HYDROCODONE/APAP 5mg/325mg TABLET PO PRN (21:14)
[2016-11-18] MEDS: ATORVASTATIN 10 MG TABLET PO SCH (21:14)
[2016-11-19] MEDS: AMPICILLIN 1 GM in NS 100 ML IV SCH ×4 (05:39→23:37)
[2016-11-19] MEDS: OMEPRAZOLE 20 MG CAPSULE PO SCH (06:21)
[2016-11-19] MEDS: BUDESONIDE INH.SOLN 0.5mg/2ml NEB AEROSOL SCH (07:03)
[2016-11-19] MEDS: ALBUTEROL/IPRATROPIUM 2.5mg-0.5mg/3ml NEB AEROSOL SCH ×4 (07:03→19:39)
[2016-11-19] MEDS: DESIPRAMINE 25 MG TABLET PO SCH ×2 (08:25→20:49)
[2016-11-19] MEDS: CYANOCOBALAMIN (B-12) 500mcg TABLET PO SCH (08:25)
[2016-11-19] MEDS: BACLOFEN 10 MG TABLET PO SCH ×3 (08:25→20:50)
[2016-11-19] MEDS: CALCIUM 500 + VIT D 200 TABLET PO SCH (08:25)
[2016-11-19] MEDS: DIVALPROEX SPRINKLE 125 MG CAPSULE PO SCH ×4 (08:26→20:50)
[2016-11-19] MEDS: ACYCLOVIR 200 MG CAPSULE PO SCH ×2 (08:26→20:50)
[2016-11-19] MEDS: GUAIFENESIN/D-METHORPHAN 600mg/30mg TABLET PO SCH ×2 (08:26→20:50)
[2016-11-19] MEDS: HYDROCODONE/APAP 5mg/325mg TABLET PO PRN (08:26)
[2016-11-19] MEDS: POLYETHYL GLYCOL 3350 17gm PACKET PO SCH ×2 (08:26→20:50)
[2016-11-19] MEDS: MULTI-VITAMIN PLAIN TABLET PO SCH (08:26)
[2016-11-19] MEDS: MAGNESIUM OXIDE 400 MG TABLET PO SCH (08:26)
[2016-11-19] MEDS: SENNA + DOCUSATE TABLET PO SCH ×2 (08:26→20:50)
[2016-11-19] MEDS: PSYLLIUM PACKET PO SCH (08:27)
[2016-11-19] MEDS: SALINE 0.65% NASAL SPRAY 44 ML BOTTLE EA NOSTRIL SCH ×4 (08:27→21:00)
[2016-11-19] MEDS: ENOXAPARIN 40 MG/0.4 ML INJECTION SQ SCH (08:27)
--- NOTE | 2016-11-19 08:51 | XRay Report ---
Indication: hypoxia PROCEDURE: XR chest 1V: Encounter: Initial Comparison: November 17, 2016 Findings: Pulmonary edema continues to improve with a mild amount remaining. No new areas of consolidation. No pleural effusion or pneumothorax. Heart size and mediastinal contours are within normal limits. Impression: Continued improvement in pulmonary edema. .
[2016-11-19] MEDS ORDERED: FUROSEMIDE 40 MG/4 ML INJECTION IVP SCH (09:00)
--- NOTE | 2016-11-19 12:51 | Progress Note ---
Subjective: F/U: Sepsis, bacteremia with E coli, UTI Resting in bed, working on lunch. Feels hungry but hard to eat. Not having pain with eating. Not reporting ab pain/discomfort. Last charted bowel 11/17. Breathing feels okay-not hurting with breathing or feeling congested. No chest pressure or pain. Denies f/c. Strength decreased. Objective Vital signs: Temperature 98 F 11/19/16 07:58 Pulse Rate 103 H 11/19/16 08:00 Respiratory Rate 20 11/19/16 11:01 Blood Pressure 129/84 11/19/16 07:58 Pulse Oximetry 96 11/19/16 11:01 Height/Weight/BMI: Height 1.6 m Weight 78.9 kg Body Mass Index 32.4 - Constitutional Present: well nourished, well developed, obese, cooperative, other (Alert, but appears tired and weak. ) - Routine HEENT Exam Head: Present: normocephalic, atraumatic Eye: Present: EOMI, PERRL ENT: Present: mucous membranes moist - Routine Respiratory Exam Present: decreased breath sounds, crackles, distant breath sounds, diminished air movement. Absent: respiratory distress, rhonchi - Routine Cardiovascular Exam Present: RRR, no murmur - Routine Abdominal Exam Present: soft, non distended, non tender. Absent: normoactive bowel sounds ( Not present ), rebound, guarding, rigid - Routine Exam Comments: Monae present. Bladder retraining. - Routine Extremities Exam Present: cyanosis, clubbing, edema (+2 LE ) - Routine Musculoskeletal Exam Musculoskeletal: Present: no clubbing or cyanosis. Absent: normal strength - Routine Skin Exam Present: dry, warm - Routine Neurological Exam Present: alert, CN II-XII intact, moving all extremities, vision grossly intact , hearing grossly intact - Routine Psychiatric Exam Present: cooperative. Absent: anxious, agitated Results - Labs CBC & Chem 7: 11/19/16 04:33 11/19/16 04:33 - ABG Interpretation ABG results: 11/12/16 11/14/16 11/19/16 01:28 22:40 07:05 ABG pH 7.389 7.455 H ABG pCO2 41 36 ABG pO2 89 88 ABG HCO3 25 26 ABG Total CO2 26 27 ABG O2 Saturation 97.0 97.0 ABG Base Excess 0.0 2.0 VBG pH 7.370 VBG pCO2 44 VBG pO2 40 VBG HCO3 25 VBG Total CO2 26.8 VBG O2 Saturation 73.0 VBG Base Excess -0.1 Assessment and Plan (1) Urinary tract infection Current visit: Yes Status: Acute (2) Sepsis Current visit: Yes Status: Acute DVT Prophylaxis: SCD's Resuscitation Status: Full Code Assessment and Plan: Assessment Sepsis secondary to UTI, present on admission, acute. Bacteremia with Ecoli Hypotension (POA) - resolved with IVF Altered mental status with increased confusion and lethargy (POA) acute. Pulmonary edema, acute Hyponatremia (POA) acute. Hypoxia, acute Hypertension, chronic. COPD, chronic. Pulmonary fibrosis, chronic. Pulmonary Hypertension, chronic. Hypercholesterolemia, chronic. GERD, chronic. Chronic back pain. Chronic kidney disease, stage III. History of shingles. Depression, chronic. Obesity with BMI 32.5, chronic. Plan Continue with ampicillin for Ecoli bacteremia (Day #9). Will stop Lasix - weight at baseline. Monitor volume status off diuretics. Wean O2 as able - patient uses O2 when sleeping. PT/OT to help improve functional status - very debilitated due to her acute illness. Monitor lab. Time spent with patient care 25 minutes. Hospital Course Summary Disclaimer: The visit summary below is not to be considered part of the above Progress Note. Hospital Course: 11/11/16 (Admission) Assessment Sepsis secondary to UTI, present on admission, acute. Hypotension Altered mental status with increased confusion and lethargy, present on admission, acute. Hyponatremia, present on admission, acute. Hypertension, chronic. COPD, chronic. Hypercholesterolemia, chronic. GERD, chronic. Chronic back pain. Chronic kidney disease, stage III. Obesity, chronic. History of shingles. Depression, chronic. Plan Admit to inpatient status under the care of Dr. Anderson. Patient noted to meet sepsis criteria upon admission as indicated by fever ( 101.4), leukocytosis (WBC 16.1), bandemia (10%) and concern for altered mental status and increased confusion. UA confirmed UTI with + nitrite, 50-200 WBC and 3+ bacteria. UA and blood cultures pending. Rocephin 1g IV given in ED. Will continue Rocephin 1g daily for empiric antimicrobial coverage of suspected urinary pathogens. Tylenol as needed pain and fever control. Lactate 1.9 in ED. Will recheck at 2100. Procalcitonin elevated at 2.32. Patient was given 1L NS in ED. Hyponatremia noted on admission with sodium 131. Will continue NS at 125cc/hr for fluid resuscitation. Monitor closely for signs of fluid overload and daily weight. Initial blood pressure in ED was noted to be borderline low at 94/55. Improved with fluid resuscitation. Continue to monitor blood pressure closely and will monitor cardiac function closely on telemetry. Troponin in ED was negative at < 0.012. In light of low blood pressure, will hold home blood pressure medications including Norvasc 5mg, Losartan/HCTZ 50/12.5 and metoprolol XL. Continue home Prilosec for GERD and GI protection. SCDs for DVT prophylaxis. CXR in ED showed no acute cardiopulmonary abnormalities. Continue home inhalers and monitor respiratory function closely. Encourage incentive spirometry for pulmonary toileting. Anemia noted on admission with hemoglobin 10.9. History of chronic anemia. Monitor blood counts closely and continue home B12. Unable to reconcile medications in computer as current medication list has not been verified. Will try and obtain current medication list from [facility]. Upon discharge, patient's care will be returned to her PCP, Dr. Wheatley. 11/12/16 Patient transfer to CCU overnight due to low BP. IVF bolus given. BC positive for E coli - c/s pending. Will check CTA due to increased dyspnea and low BP to exclude PE. Continue Rocephin for antimicrobial support. IVF of NS at 125 for hydration. Start routine Miralax and Senna Plus due to significant constipation. PRN MOM and Dulcolax available. Continue to hold antihypertensives as BP low. Did decrease IVF to 75cc/hr and gave Lasix as breathing more short. Initialed neb treatments. 11/13/16 WBC decreased to 10.9. HBG stable at 10.1. Potassium 3.3 with Mg 1.4. Creatinine 0.8. BC showing pansensitive Ecoli. Will change Rocephin to Ampicillin 1 gram IV q 6 hours for coverage. Decrease IVF to 50cc/hr. Replace potassium and magnesium. Mucinex DM BID to help decrease cough and congestion. Ricola prn cough. Acapella to help loosen secretions. CT showed no PE. Will check Echo due to low BP-? effusion. BP improving but still low at times. Continue to hold antihypertensives. Started BB due to tachycardia. 11/14/16 Continue Ampicillin for antimicrobial coverage Will stop IVF-concern for volume overload. Lasix 20mg IV x1 and monitor. Echo with hyperdynamic EF of 72% and pulmonary HTN. Wean O2-encourage breathing to help saturations. Continue neb treatments and Mucinex. 11/15/16 Still somnolent. Blood pressure with persistent elevation. Weight up. Start Lasix 40mg IV q8 hours to help motivate fluid. Increase Potassium to 20 mEq TIDWM due to Lasix use. Diamox 500mg po x1 to decrease potential or alkalosis. Hold on restarting outpatient BP medications until patient better diuresed. BiPAP as needed to help minimize respiratory fatigue. Solu-Medrol started by telehospitalist. Will stop and not appreciating wheezing. ABG with normal CO2 - encourage deep breathing and BiPAP to help maintain ventilation. Decrease Baclofen to 5mg TID due to somnolence. Continue ampicillin for antimicrobial coverage. Recheck BMP in am due to diuretics. CBC in am due to sepsis and leukocytosis. 11/16/16 Urine output increase and weight/edema decreasing with Lasix. Creatinine stable at 0.8. Will continue Lasix 40mg IV q 8 hours. Diamox 500mg this morning and evening. Additional oral potassium and magnesium due to decrease. Recheck CXR in am to evaluate pulmonary edema. Nursing to continue to wean O2 - acceptable to have saturations in mid 90s. Continue ampicillin for coverage. Work with bowel function (chronically constipated and has to disimpact self at home). Increase Senna Plus to BID. Encourage rectal Dulcolax. PRN Fleets. 11/17/16 Diuresed well with Lasix/Diamox yesterday. Weight down 4 kg. Continue Lasix, reassess in a.m. Oxygenation improving with diuresis. Wean as saturation permits. Continue ampicillin for coverage. Convert to amoxicillin when consistently taking oral medications well to complete 2 weeks therapy. Leukocytosis normalizing. Work with bowel function (chronically constipated and has to disimpact self at home). Disimpact at this morning. Increase MiraLAX to BID; Senna Plus BID. Encourage rectal Dulcolax. PRN Fleets. Macrocytic anemia, present on admission-check B-12/TSH Hyponatremia has resolved, blood pressure stable. 11/18/16 Diuresed well with Lasix or Lasix/Diamox the past 2 days. Weight down but BUN/ creatinine up slightly today. Continue Lasix at 40 mg daily instead of every 8 hours and monitor renal function/oxygen demand. Oxygenation improving with diuresis. Wean as saturation permits. Currently on 2 L-does not appear to have been on oxygen prior to admission. Continue ampicillin for coverage of Escherichia coli. Convert to amoxicillin when consistently taking oral medications well to complete 2 weeks therapy. Day 8 antibiotics (ceftriaxone 11/11-11/13, ampicillin /-present) Leukocytosis improved. Continue bowel regimen-disimpacted yesterday. Macrocytic anemia, present on admission-check B-12/TSH Hyponatremia has resolved, blood pressure stable. Stable for transfer out of ICU. PT/OT consulted. 11/19/16 Continue with ampicillin for Ecoli bacteremia (Day #9). Will stop Lasix - weight at baseline. Monitor volume status off diuretics. Wean O2 as able - patient uses O2 when sleeping. PT/OT to help improve functional status - very debilitated due to her acute illness.
[2016-11-19] MEDS: ATORVASTATIN 10 MG TABLET PO SCH (20:50)
[2016-11-20] MEDS: AMPICILLIN 1 GM in NS 100 ML IV SCH ×4 (05:16→23:34)
[2016-11-20] MEDS: OMEPRAZOLE 20 MG CAPSULE PO SCH (06:24)
[2016-11-20] MEDS: ALBUTEROL/IPRATROPIUM 2.5mg-0.5mg/3ml NEB AEROSOL SCH ×4 (08:04→20:15)
[2016-11-20] MEDS: BUDESONIDE INH.SOLN 0.5mg/2ml NEB AEROSOL SCH ×3 (08:04→20:15)
[2016-11-20] MEDS: GUAIFENESIN/D-METHORPHAN 600mg/30mg TABLET PO SCH ×2 (09:20→20:58)
[2016-11-20] MEDS: SENNA + DOCUSATE TABLET PO SCH ×2 (09:20→20:59)
[2016-11-20] MEDS: HYDROCODONE/APAP 5mg/325mg TABLET PO PRN ×2 (09:21→23:52)
[2016-11-20] MEDS: MAGNESIUM OXIDE 400 MG TABLET PO SCH (09:21)
[2016-11-20] MEDS: DIVALPROEX SPRINKLE 125 MG CAPSULE PO SCH ×4 (09:22→20:58)
[2016-11-20] MEDS: CYANOCOBALAMIN (B-12) 500mcg TABLET PO SCH (09:22)
[2016-11-20] MEDS: MULTI-VITAMIN PLAIN TABLET PO SCH (09:22)
[2016-11-20] MEDS: CALCIUM 500 + VIT D 200 TABLET PO SCH (09:23)
[2016-11-20] MEDS: PSYLLIUM PACKET PO SCH (09:23)
[2016-11-20] MEDS: BACLOFEN 10 MG TABLET PO SCH ×3 (09:23→20:58)
[2016-11-20] MEDS: ENOXAPARIN 40 MG/0.4 ML INJECTION SQ SCH (09:23)
[2016-11-20] MEDS: DESIPRAMINE 25 MG TABLET PO SCH ×2 (09:23→20:58)
[2016-11-20] MEDS: POLYETHYL GLYCOL 3350 17gm PACKET PO SCH ×2 (09:23→20:59)
[2016-11-20] MEDS: ACYCLOVIR 200 MG CAPSULE PO SCH ×2 (09:23→20:57)
[2016-11-20] MEDS: SALINE 0.65% NASAL SPRAY 44 ML BOTTLE EA NOSTRIL SCH ×4 (09:24→20:59)
[2016-11-20] MEDS: SALINE FLUSH 10ml SYRINGE IV PRN ×2 (09:27→23:38)
[2016-11-20] MEDS: NS FLUSH BAG 500ml IV PRN (11:22)
--- NOTE | 2016-11-20 15:13 | Progress Note ---
<Alexus Duque V - Last Filed: 11/20/16 15:09> Subjective: Kait is seen today in follow up. She is resting in bed with family at her bedside. She is alert and pleasant during examination. She continues on 2 liters of oxygen by nasal canula. She denies having nausea or abdominal pain. Denies feeling short of breath. She complains of the thickened liquids and crushing of her medications. Objective Vital signs: Temperature 98.0 F 11/20/16 08:00 Pulse Rate 100 11/20/16 08:00 Respiratory Rate 18 11/20/16 12:10 Blood Pressure 142/89 H 11/20/16 08:00 Pulse Oximetry 97 11/20/16 12:10 Height/Weight/BMI: Height 1.6 m Weight 80.9 kg Body Mass Index 32.4 - Constitutional Present: no acute distress, well nourished, well developed - Routine HEENT Exam Eye: Present: EOMI ENT: Present: mucous membranes moist, dentition normal - Routine Respiratory Exam Present: CTA bilaterally. Absent: wheezes - Routine Cardiovascular Exam Present: RRR, S1, S2. Absent: murmur - Routine Abdominal Exam Present: soft, normoactive bowel sounds, non distended. Absent: tenderness - Routine Extremities Exam Present: no edema, normal capillary refill - Routine Skin Exam Present: intact, dry, warm - Routine Neurological Exam Present: alert, oriented X3, CN II-XII intact - Routine Lymphatic Exam Lymphatic: Absent: adenopathy - Routine Psychiatric Exam Present: normal affect, cooperative Results - Labs CBC & Chem 7: 11/20/16 04:40 11/20/16 04:40 - ABG Interpretation ABG results: 11/12/16 11/14/16 11/19/16 01:28 22:40 07:05 ABG pH 7.389 7.455 H ABG pCO2 41 36 ABG pO2 89 88 ABG HCO3 25 26 ABG Total CO2 26 27 ABG O2 Saturation 97.0 97.0 ABG Base Excess 0.0 2.0 VBG pH 7.370 VBG pCO2 44 VBG pO2 40 VBG HCO3 25 VBG Total CO2 26.8 VBG O2 Saturation 73.0 VBG Base Excess -0.1 Assessment and Plan (1) Urinary tract infection Current visit: Yes Status: Acute (2) Sepsis Current visit: Yes Status: Acute Assessment and Plan: Assessment Sepsis secondary to UTI, present on admission, acute. Bacteremia with Ecoli Hypotension (POA) - resolved with IVF Altered mental status with increased confusion and lethargy (POA) acute. Pulmonary edema, acute Hyponatremia (POA) acute. Hypoxia, acute Hypertension, chronic. COPD, chronic. Pulmonary fibrosis, chronic. Pulmonary Hypertension, chronic. Hypercholesterolemia, chronic. GERD, chronic. Chronic back pain. Chronic kidney disease, stage III. History of shingles. Depression, chronic. Obesity with BMI 32.5, chronic. Plan Continue with ampicillin for Ecoli bacteremia (Day #10). Will have speech therapy reevaluate patient's swallow tomorrow morning as she is hopeful to get rid of thickened liquids and crushed pills. We did discuss in great detail with both patient and family that when patients have severe illness and weakness off and swallow does become more weak, causing increased risk of aspiration. It would be the hope that once patient gets stronger. She will be able to return to full liquids. Continued Leukocytosis- Will continue to monitor Hypernatremia- NA 145. Duoneb QID and oxygen as needed to maintain saturations Will recheck CBC and BMP tomorrow Hospital Course Summary Disclaimer: The visit summary below is not to be considered part of the above Progress Note. Hospital Course: 11/11/16 (Admission) Assessment Sepsis secondary to UTI, present on admission, acute. Hypotension Altered mental status with increased confusion and lethargy, present on admission, acute. Hyponatremia, present on admission, acute. Hypertension, chronic. COPD, chronic. Hypercholesterolemia, chronic. GERD, chronic. Chronic back pain. Chronic kidney disease, stage III. Obesity, chronic. History of shingles. Depression, chronic. Plan Admit to inpatient status under the care of Dr. Anderson. Patient noted to meet sepsis criteria upon admission as indicated by fever ( 101.4), leukocytosis (WBC 16.1), bandemia (10%) and concern for altered mental status and increased confusion. UA confirmed UTI with + nitrite, 50-200 WBC and 3+ bacteria. UA and blood cultures pending. Rocephin 1g IV given in ED. Will continue Rocephin 1g daily for empiric antimicrobial coverage of suspected urinary pathogens. Tylenol as needed pain and fever control. Lactate 1.9 in ED. Will recheck at 2100. Procalcitonin elevated at 2.32. Patient was given 1L NS in ED. Hyponatremia noted on admission with sodium 131. Will continue NS at 125cc/hr for fluid resuscitation. Monitor closely for signs of fluid overload and daily weight. Initial blood pressure in ED was noted to be borderline low at 94/55. Improved with fluid resuscitation. Continue to monitor blood pressure closely and will monitor cardiac function closely on telemetry. Troponin in ED was negative at < 0.012. In light of low blood pressure, will hold home blood pressure medications including Norvasc 5mg, Losartan/HCTZ 50/12.5 and metoprolol XL. Continue home Prilosec for GERD and GI protection. SCDs for DVT prophylaxis. CXR in ED showed no acute cardiopulmonary abnormalities. Continue home inhalers and monitor respiratory function closely. Encourage incentive spirometry for pulmonary toileting. Anemia noted on admission with hemoglobin 10.9. History of chronic anemia. Monitor blood counts closely and continue home B12. Unable to reconcile medications in computer as current medication list has not been verified. Will try and obtain current medication list from [facility]. Upon discharge, patient's care will be returned to her PCP, Dr. Wheatley. 11/12/16 Patient transfer to CCU overnight due to low BP. IVF bolus given. BC positive for E coli - c/s pending. Will check CTA due to increased dyspnea and low BP to exclude PE. Continue Rocephin for antimicrobial support. IVF of NS at 125 for hydration. Start routine Miralax and Senna Plus due to significant constipation. PRN MOM and Dulcolax available. Continue to hold antihypertensives as BP low. Did decrease IVF to 75cc/hr and gave Lasix as breathing more short. Initialed neb treatments. 11/13/16 WBC decreased to 10.9. HBG stable at 10.1. Potassium 3.3 with Mg 1.4. Creatinine 0.8. BC showing pansensitive Ecoli. Will change Rocephin to Ampicillin 1 gram IV q 6 hours for coverage. Decrease IVF to 50cc/hr. Replace potassium and magnesium. Mucinex DM BID to help decrease cough and congestion. Ricola prn cough. Acapella to help loosen secretions. CT showed no PE. Will check Echo due to low BP-? effusion. BP improving but still low at times. Continue to hold antihypertensives. Started BB due to tachycardia. 11/14/16 Continue Ampicillin for antimicrobial coverage Will stop IVF-concern for volume overload. Lasix 20mg IV x1 and monitor. Echo with hyperdynamic EF of 72% and pulmonary HTN. Wean O2-encourage breathing to help saturations. Continue neb treatments and Mucinex. 11/15/16 Still somnolent. Blood pressure with persistent elevation. Weight up. Start Lasix 40mg IV q8 hours to help motivate fluid. Increase Potassium to 20 mEq TIDWM due to Lasix use. Diamox 500mg po x1 to decrease potential or alkalosis. Hold on restarting outpatient BP medications until patient better diuresed. BiPAP as needed to help minimize respiratory fatigue. Solu-Medrol started by telehospitalist. Will stop and not appreciating wheezing. ABG with normal CO2 - encourage deep breathing and BiPAP to help maintain ventilation. Decrease Baclofen to 5mg TID due to somnolence. Continue ampicillin for antimicrobial coverage. Recheck BMP in am due to diuretics. CBC in am due to sepsis and leukocytosis. 11/16/16 Urine output increase and weight/edema decreasing with Lasix. Creatinine stable at 0.8. Will continue Lasix 40mg IV q 8 hours. Diamox 500mg this morning and evening. Additional oral potassium and magnesium due to decrease. Recheck CXR in am to evaluate pulmonary edema. Nursing to continue to wean O2 - acceptable to have saturations in mid 90s. Continue ampicillin for coverage. Work with bowel function (chronically constipated and has to disimpact self at home). Increase Senna Plus to BID. Encourage rectal Dulcolax. PRN Fleets. 11/17/16 Diuresed well with Lasix/Diamox yesterday. Weight down 4 kg. Continue Lasix, reassess in a.m. Oxygenation improving with diuresis. Wean as saturation permits. Continue ampicillin for coverage. Convert to amoxicillin when consistently taking oral medications well to complete 2 weeks therapy. Leukocytosis normalizing. Work with bowel function (chronically constipated and has to disimpact self at home). Disimpact at this morning. Increase MiraLAX to BID; Senna Plus BID. Encourage rectal Dulcolax. PRN Fleets. Macrocytic anemia, present on admission-check B-12/TSH Hyponatremia has resolved, blood pressure stable. 11/18/16 Diuresed well with Lasix or Lasix/Diamox the past 2 days. Weight down but BUN/ creatinine up slightly today. Continue Lasix at 40 mg daily instead of every 8 hours and monitor renal function/oxygen demand. Oxygenation improving with diuresis. Wean as saturation permits. Currently on 2 L-does not appear to have been on oxygen prior to admission. Continue ampicillin for coverage of Escherichia coli. Convert to amoxicillin when consistently taking oral medications well to complete 2 weeks therapy. Day 8 antibiotics (ceftriaxone /-11/13, ampicillin 10/-present) Leukocytosis improved. Continue bowel regimen-disimpacted yesterday. Macrocytic anemia, present on admission-check B-12/TSH Hyponatremia has resolved, blood pressure stable. Stable for transfer out of ICU. PT/OT consulted. 11/19/16 Continue with ampicillin for Ecoli bacteremia (Day #9). Will stop Lasix - weight at baseline. Monitor volume status off diuretics. Wean O2 as able - patient uses O2 when sleeping. PT/OT to help improve functional status - very debilitated due to her acute illness. 11/20/16 Plan Continue with ampicillin for Ecoli bacteremia (Day #10). Will have speech therapy reevaluate patient's swallow tomorrow morning as she is hopeful to get rid of thickened liquids and crushed pills. We did discuss in great detail with both patient and family that when patients have severe illness and weakness off and swallow does become more weak, causing increased risk of aspiration. It would be the hope that once patient gets stronger. She will be able to return to full liquids. Monitor labs. Wean oxygen as able, Continued Ruben QID. <Irvin Anderson - Last Filed: 11/20/16 16:52> Objective Vital signs: Temperature 98.3 F 11/20/16 15:36 Pulse Rate 93 11/20/16 15:36 Respiratory Rate 16 11/20/16 15:36 Blood Pressure 112/65 11/20/16 15:36 Pulse Oximetry 98 11/20/16 15:36 Height/Weight/BMI: Height 1.6 m Weight 80.9 kg Body Mass Index 32.4 Results - Labs CBC & Chem 7: 11/20/16 04:40 11/20/16 04:40 - ABG Interpretation ABG results: 11/12/16 11/14/16 11/19/16 01:28 22:40 07:05 ABG pH 7.389 7.455 H ABG pCO2 41 36 ABG pO2 89 88 ABG HCO3 25 26 ABG Total CO2 26 27 ABG O2 Saturation 97.0 97.0 ABG Base Excess 0.0 2.0 VBG pH 7.370 VBG pCO2 44 VBG pO2 40 VBG HCO3 25 VBG Total CO2 26.8 VBG O2 Saturation 73.0 VBG Base Excess -0.1 Assessment and Plan (1) Urinary tract infection Current visit: Yes Status: Acute (2) Sepsis Current visit: Yes Status: Acute Assessment and Plan: Assessment Sepsis secondary to UTI, present on admission, acute. Bacteremia with Ecoli Hypotension (POA) - resolved with IVF Altered mental status with increased confusion and lethargy (POA) acute. Pulmonary edema, acute Hyponatremia (POA) acute. Hypoxia, acute Hypertension, chronic. COPD, chronic. Pulmonary fibrosis, chronic. Pulmonary Hypertension, chronic. Hypercholesterolemia, chronic. GERD, chronic. Chronic back pain. Chronic kidney disease, stage III. History of shingles. Depression, chronic. Obesity with BMI 32.5, chronic. Have independently interviewed and examined pt. Chart reviewed. Case discussed with my [employer]SEM[employer] SUPERVISOR. Care plan developed with my supervision; agree with above. Doing okay today-has been up in chair some. Reports working with therapy; still very weak. Reports it is hard to eat secondary to all the applesauce she gets to take her medication. Would like not to have medicine crushed. No nausea. Nursing reports copious stool today. No ab pain. Breathing fair-not feeling SOA or congested. Would like to be able to come off of oxygen. Lungs: decreased, no crackles or wheezes CV: regular AB; soft nt/nd BS decreased EXT: +[address] Plan: Continue Ampicillin. Will d/c esquivel cath-monitor bladder scans. Wean O2- will need to continue 2L at night. Encourage therapy and activities to improve strength. Monitor lab. Time spent with patient care 25 minutes. - Time spent with patient Time with patient PN: 25 minutes Hospital Course Summary Disclaimer: The visit summary below is not to be considered part of the above Progress Note.
[2016-11-20] MEDS: ATORVASTATIN 10 MG TABLET PO SCH (20:58)
[2016-11-21] MEDS: SALINE FLUSH 10ml SYRINGE IV PRN ×5 (00:22→22:54)
[2016-11-21] MEDS: AMPICILLIN 1 GM in NS 100 ML IV SCH ×4 (05:13→22:54)
[2016-11-21] MEDS: OMEPRAZOLE 20 MG CAPSULE PO SCH (06:35)
[2016-11-21] MEDS: ALBUTEROL/IPRATROPIUM 2.5mg-0.5mg/3ml NEB AEROSOL SCH ×4 (07:53→18:54)
[2016-11-21] MEDS: BUDESONIDE INH.SOLN 0.5mg/2ml NEB AEROSOL SCH ×2 (07:53→18:54)
[2016-11-21] MEDS: ACYCLOVIR 200 MG CAPSULE PO SCH ×2 (08:47→21:31)
[2016-11-21] MEDS: BACLOFEN 10 MG TABLET PO SCH ×3 (08:48→21:31)
[2016-11-21] MEDS: DIVALPROEX SPRINKLE 125 MG CAPSULE PO SCH ×4 (08:49→21:28)
[2016-11-21] MEDS: SENNA + DOCUSATE TABLET PO SCH ×2 (08:49→21:27)
[2016-11-21] MEDS: CYANOCOBALAMIN (B-12) 500mcg TABLET PO SCH (08:51)
[2016-11-21] MEDS: CALCIUM 500 + VIT D 200 TABLET PO SCH (08:52)
[2016-11-21] MEDS: GUAIFENESIN/D-METHORPHAN 600mg/30mg TABLET PO SCH ×2 (08:52→21:31)
[2016-11-21] MEDS: PSYLLIUM PACKET PO SCH (08:52)
[2016-11-21] MEDS: DESIPRAMINE 25 MG TABLET PO SCH ×2 (08:52→21:31)
[2016-11-21] MEDS: MAGNESIUM OXIDE 400 MG TABLET PO SCH (08:52)
[2016-11-21] MEDS: POLYETHYL GLYCOL 3350 17gm PACKET PO SCH ×2 (08:52→21:34)
[2016-11-21] MEDS: SALINE 0.65% NASAL SPRAY 44 ML BOTTLE EA NOSTRIL SCH ×4 (08:53→21:27)
[2016-11-21] MEDS: ENOXAPARIN 40 MG/0.4 ML INJECTION SQ SCH (08:53)
[2016-11-21] MEDS: MULTI-VITAMIN PLAIN TABLET PO SCH (08:56)
--- NOTE | 2016-11-21 13:33 | Progress Note ---
<Alexus Duque V - Last Filed: 11/21/16 13:29> Subjective: Kait is seen today in follow up . She states that overall she is feeling better than yesterday. Her appetite improved last night with dinner and breakfast today. She was reevaluated by speech this morning to feel that she can swallow pills, one or 2 at a time and not needing them to be crushed. Liquids still need to remain thickened at this time. Kait is without complaints of pain, shortness of breath or GI complaints. Objective Vital signs: Temperature 98.5 F 11/21/16 07:53 Pulse Rate 108 H 11/21/16 08:00 Respiratory Rate 16 11/21/16 10:50 Blood Pressure 129/82 11/21/16 07:53 Pulse Oximetry 98 11/21/16 10:50 Height/Weight/BMI: Height 1.6 m Weight 81.2 kg Body Mass Index 32.4 - Constitutional Present: no acute distress, well nourished, well developed - Routine HEENT Exam Eye: Present: EOMI ENT: Present: mucous membranes moist - Routine Respiratory Exam Present: CTA bilaterally. Absent: wheezes - Routine Cardiovascular Exam Present: RRR, S1, S2. Absent: murmur - Routine Abdominal Exam Present: soft, non distended. Absent: normoactive bowel sounds (hypoactive), tenderness - Routine Extremities Exam Present: normal capillary refill - Routine Skin Exam Present: intact, dry, warm - Routine Neurological Exam Present: alert, oriented X3, CN II-XII intact - Routine Lymphatic Exam Lymphatic: Absent: adenopathy - Routine Psychiatric Exam Present: normal affect, cooperative Results - Labs CBC & Chem 7: 11/21/16 04:40 11/21/16 04:40 - ABG Interpretation ABG results: 11/12/16 11/14/16 11/19/16 01:28 22:40 07:05 ABG pH 7.389 7.455 H ABG pCO2 41 36 ABG pO2 89 88 ABG HCO3 25 26 ABG Total CO2 26 27 ABG O2 Saturation 97.0 97.0 ABG Base Excess 0.0 2.0 VBG pH 7.370 VBG pCO2 44 VBG pO2 40 VBG HCO3 25 VBG Total CO2 26.8 VBG O2 Saturation 73.0 VBG Base Excess -0.1 Assessment and Plan (1) Urinary tract infection Current visit: Yes Status: Acute (2) Sepsis Current visit: Yes Status: Acute Assessment and Plan: Assessment Sepsis secondary to UTI, present on admission, acute. Bacteremia with Ecoli Hypotension (POA) - resolved with IVF Altered mental status with increased confusion and lethargy (POA) acute. Pulmonary edema, acute Hyponatremia (POA) acute. Hypoxia, acute Hypertension, chronic. COPD, chronic. Pulmonary fibrosis, chronic. Pulmonary Hypertension, chronic. Hypercholesterolemia, chronic. GERD, chronic. Chronic back pain. Chronic kidney disease, stage III. History of shingles. Depression, chronic. Obesity with BMI 32.5, chronic. Plan Continue Ampicillin for antimicrobial coverage of E-coli bacteremia Work on weaning down oxygen Continue to encourage work with PT/OT for strengthening Prior to hospitalization patient resides independently at [facility]. Discussed possibility of skilled or IRU once medically stable prior to discharge home independently. Continue to monitor labs Hospital Course Summary Disclaimer: The visit summary below is not to be considered part of the above Progress Note. Hospital Course: 11/11/16 (Admission) Assessment Sepsis secondary to UTI, present on admission, acute. Hypotension Altered mental status with increased confusion and lethargy, present on admission, acute. Hyponatremia, present on admission, acute. Hypertension, chronic. COPD, chronic. Hypercholesterolemia, chronic. GERD, chronic. Chronic back pain. Chronic kidney disease, stage III. Obesity, chronic. History of shingles. Depression, chronic. Plan Admit to inpatient status under the care of Dr. Anderson. Patient noted to meet sepsis criteria upon admission as indicated by fever ( 101.4), leukocytosis (WBC 16.1), bandemia (10%) and concern for altered mental status and increased confusion. UA confirmed UTI with + nitrite, 50-200 WBC and 3+ bacteria. UA and blood cultures pending. Rocephin 1g IV given in ED. Will continue Rocephin 1g daily for empiric antimicrobial coverage of suspected urinary pathogens. Tylenol as needed pain and fever control. Lactate 1.9 in ED. Will recheck at 2100. Procalcitonin elevated at 2.32. Patient was given 1L NS in ED. Hyponatremia noted on admission with sodium 131. Will continue NS at 125cc/hr for fluid resuscitation. Monitor closely for signs of fluid overload and daily weight. Initial blood pressure in ED was noted to be borderline low at 94/55. Improved with fluid resuscitation. Continue to monitor blood pressure closely and will monitor cardiac function closely on telemetry. Troponin in ED was negative at < 0.012. In light of low blood pressure, will hold home blood pressure medications including Norvasc 5mg, Losartan/HCTZ 50/12.5 and metoprolol XL. Continue home Prilosec for GERD and GI protection. SCDs for DVT prophylaxis. CXR in ED showed no acute cardiopulmonary abnormalities. Continue home inhalers and monitor respiratory function closely. Encourage incentive spirometry for pulmonary toileting. Anemia noted on admission with hemoglobin 10.9. History of chronic anemia. Monitor blood counts closely and continue home B12. Unable to reconcile medications in computer as current medication list has not been verified. Will try and obtain current medication list from [facility]. Upon discharge, patient's care will be returned to her PCP, Dr. Wheatley. 11/12/16 Patient transfer to CCU overnight due to low BP. IVF bolus given. BC positive for E coli - c/s pending. Will check CTA due to increased dyspnea and low BP to exclude PE. Continue Rocephin for antimicrobial support. IVF of NS at 125 for hydration. Start routine Miralax and Senna Plus due to significant constipation. PRN MOM and Dulcolax available. Continue to hold antihypertensives as BP low. Did decrease IVF to 75cc/hr and gave Lasix as breathing more short. Initialed neb treatments. 11/13/16 WBC decreased to 10.9. HBG stable at 10.1. Potassium 3.3 with Mg 1.4. Creatinine 0.8. BC showing pansensitive Ecoli. Will change Rocephin to Ampicillin 1 gram IV q 6 hours for coverage. Decrease IVF to 50cc/hr. Replace potassium and magnesium. Mucinex DM BID to help decrease cough and congestion. Ricola prn cough. Acapella to help loosen secretions. CT showed no PE. Will check Echo due to low BP-? effusion. BP improving but still low at times. Continue to hold antihypertensives. Started BB due to tachycardia. 11/14/16 Continue Ampicillin for antimicrobial coverage Will stop IVF-concern for volume overload. Lasix 20mg IV x1 and monitor. Echo with hyperdynamic EF of 72% and pulmonary HTN. Wean O2-encourage breathing to help saturations. Continue neb treatments and Mucinex. 11/15/16 Still somnolent. Blood pressure with persistent elevation. Weight up. Start Lasix 40mg IV q8 hours to help motivate fluid. Increase Potassium to 20 mEq TIDWM due to Lasix use. Diamox 500mg po x1 to decrease potential or alkalosis. Hold on restarting outpatient BP medications until patient better diuresed. BiPAP as needed to help minimize respiratory fatigue. Solu-Medrol started by telehospitalist. Will stop and not appreciating wheezing. ABG with normal CO2 - encourage deep breathing and BiPAP to help maintain ventilation. Decrease Baclofen to 5mg TID due to somnolence. Continue ampicillin for antimicrobial coverage. Recheck BMP in am due to diuretics. CBC in am due to sepsis and leukocytosis. 11/16/16 Urine output increase and weight/edema decreasing with Lasix. Creatinine stable at 0.8. Will continue Lasix 40mg IV q 8 hours. Diamox 500mg this morning and evening. Additional oral potassium and magnesium due to decrease. Recheck CXR in am to evaluate pulmonary edema. Nursing to continue to wean O2 - acceptable to have saturations in mid 90s. Continue ampicillin for coverage. Work with bowel function (chronically constipated and has to disimpact self at home). Increase Senna Plus to BID. Encourage rectal Dulcolax. PRN Fleets. 11/17/16 Diuresed well with Lasix/Diamox yesterday. Weight down 4 kg. Continue Lasix, reassess in a.m. Oxygenation improving with diuresis. Wean as saturation permits. Continue ampicillin for coverage. Convert to amoxicillin when consistently taking oral medications well to complete 2 weeks therapy. Leukocytosis normalizing. Work with bowel function (chronically constipated and has to disimpact self at home). Disimpact at this morning. Increase MiraLAX to BID; Senna Plus BID. Encourage rectal Dulcolax. PRN Fleets. Macrocytic anemia, present on admission-check B-12/TSH Hyponatremia has resolved, blood pressure stable. 11/18/16 Diuresed well with Lasix or Lasix/Diamox the past 2 days. Weight down but BUN/ creatinine up slightly today. Continue Lasix at 40 mg daily instead of every 8 hours and monitor renal function/oxygen demand. Oxygenation improving with diuresis. Wean as saturation permits. Currently on 2 L-does not appear to have been on oxygen prior to admission. Continue ampicillin for coverage of Escherichia coli. Convert to amoxicillin when consistently taking oral medications well to complete 2 weeks therapy. Day 8 antibiotics (ceftriaxone 10/3-10, ampicillin 10/5-present) Leukocytosis improved. Continue bowel regimen-disimpacted yesterday. Macrocytic anemia, present on admission-check B-12/TSH Hyponatremia has resolved, blood pressure stable. Stable for transfer out of ICU. PT/OT consulted. 11/19/16 Continue with ampicillin for Ecoli bacteremia (Day #9). Will stop Lasix - weight at baseline. Monitor volume status off diuretics. Wean O2 as able - patient uses O2 when sleeping. PT/OT to help improve functional status - very debilitated due to her acute illness. 11/20/16- Continue with ampicillin for Ecoli bacteremia (Day #10). Will have speech therapy reevaluate patient's swallow tomorrow morning as she is hopeful to get rid of thickened liquids and crushed pills. We did discuss in great detail with both patient and family that when patients have severe illness and weakness off and swallow does become more weak, causing increased risk of aspiration. 11/21/16- Continue Ampicillin(day 11) for antimicrobial coverage of E-coli bacteremia. Work on weaning down oxygen. Continue to encourage work with PT/OT for strengthening. Prior to hospitalization patient resides independently at [facility]. Discussed possibility of skilled or IRU once medically stable prior to discharge home independently. <Irvin Anderson - Last Filed: 11/21/16 18:49> Objective Vital signs: Temperature 98.7 F 11/21/16 15:00 Pulse Rate 105 H 11/21/16 16:00 Respiratory Rate 18 11/21/16 15:00 Blood Pressure 142/74 H 11/21/16 15:00 Pulse Oximetry 96 11/21/16 15:00 Height/Weight/BMI: Height 1.6 m Weight 81.2 kg Body Mass Index 32.4 Results - Labs CBC & Chem 7: 11/21/16 04:40 11/21/16 04:40 - ABG Interpretation ABG results: 11/12/16 11/14/16 11/19/16 01:28 22:40 07:05 ABG pH 7.389 7.455 H ABG pCO2 41 36 ABG pO2 89 88 ABG HCO3 25 26 ABG Total CO2 26 27 ABG O2 Saturation 97.0 97.0 ABG Base Excess 0.0 2.0 VBG pH 7.370 VBG pCO2 44 VBG pO2 40 VBG HCO3 25 VBG Total CO2 26.8 VBG O2 Saturation 73.0 VBG Base Excess -0.1 Assessment and Plan (1) Urinary tract infection Current visit: Yes Status: Acute (2) Sepsis Current visit: Yes Status: Acute Assessment and Plan: Assessment Sepsis secondary to UTI, present on admission, acute. Bacteremia with Ecoli Hypotension (POA) - resolved with IVF Altered mental status with increased confusion and lethargy (POA) acute. Pulmonary edema, acute Hyponatremia (POA) acute. Hypoxia, acute Hypertension, chronic. COPD, chronic. Pulmonary fibrosis, chronic. Pulmonary Hypertension, chronic. Hypercholesterolemia, chronic. GERD, chronic. Chronic back pain. Chronic kidney disease, stage III. History of shingles. Depression, chronic. Obesity with BMI 32.5, chronic. Have independently interviewed and examined pt. Chart reviewed. Case discussed with CM and my [employer]. Care plan developed with my supervision; agree with above. Had a better day today-able to be up in chair for most of the day. Feels more energetic this evening. Does note some shakiness. Appetite okay. No nausea or ab pain. Breathing stable-weaned down to 1L-not feeling congested or SOA. Lungs: decreased, no distress CV: regular MSE: awake alert Plan: Continue antibiotics. Encourage continued work with therapy. Encourage breathing exercises. Monitor lab. Hospital Course Summary Disclaimer: The visit summary below is not to be considered part of the above Progress Note.
[2016-11-21] MEDS: HYDROCODONE/APAP 5mg/325mg TABLET PO PRN (16:57)
[2016-11-21] MEDS: NS FLUSH BAG 500ml IV PRN (17:03)
[2016-11-21] MEDS: ATORVASTATIN 10 MG TABLET PO SCH (21:32)
[2016-11-22] MEDS ORDERED: FALL RISK - PHARMACY CONSULT XX ONE (01:22)
[2016-11-22] MEDS: AMPICILLIN 1 GM in NS 100 ML IV SCH ×4 (04:07→22:24)
[2016-11-22] MEDS: SALINE FLUSH 10ml SYRINGE IV PRN ×2 (04:07→22:24)
[2016-11-22] MEDS: OMEPRAZOLE 20 MG CAPSULE PO SCH (06:29)
[2016-11-22] MEDS: ALBUTEROL/IPRATROPIUM 2.5mg-0.5mg/3ml NEB AEROSOL SCH ×4 (07:09→19:24)
[2016-11-22] MEDS: BUDESONIDE INH.SOLN 0.5mg/2ml NEB AEROSOL SCH ×2 (07:09→19:24)
[2016-11-22] MEDS: DESIPRAMINE 25 MG TABLET PO SCH ×2 (09:25→20:48)
[2016-11-22] MEDS: MAGNESIUM OXIDE 400 MG TABLET PO SCH (09:26)
[2016-11-22] MEDS: GUAIFENESIN/D-METHORPHAN 600mg/30mg TABLET PO SCH ×2 (09:26→20:48)
[2016-11-22] MEDS: ACYCLOVIR 200 MG CAPSULE PO SCH ×2 (09:26→20:49)
[2016-11-22] MEDS: BACLOFEN 10 MG TABLET PO SCH ×3 (09:26→20:49)
[2016-11-22] MEDS: DIVALPROEX SPRINKLE 125 MG CAPSULE PO SCH ×4 (09:26→20:48)
[2016-11-22] MEDS: CALCIUM 500 + VIT D 200 TABLET PO SCH (09:26)
[2016-11-22] MEDS: CYANOCOBALAMIN (B-12) 500mcg TABLET PO SCH (09:27)
[2016-11-22] MEDS: ENOXAPARIN 40 MG/0.4 ML INJECTION SQ SCH (09:27)
[2016-11-22] MEDS: MULTI-VITAMIN PLAIN TABLET PO SCH (09:27)
[2016-11-22] MEDS: SALINE 0.65% NASAL SPRAY 44 ML BOTTLE EA NOSTRIL SCH ×4 (09:27→20:50)
[2016-11-22] MEDS: SENNA + DOCUSATE TABLET PO SCH ×2 (09:28→20:50)
[2016-11-22] MEDS: POLYETHYL GLYCOL 3350 17gm PACKET PO SCH ×2 (09:28→20:50)
[2016-11-22] MEDS: PSYLLIUM PACKET PO SCH (09:28)
--- NOTE | 2016-11-22 14:49 | Progress Note ---
<BrieSherley D - Last Filed: 11/22/16 15:04> Subjective: Kait is complaining of back pain - her pain pump is out of medication and her nerve stimulator isn't working right either. She was supposed to see Dr. Rebolledo the day she was admitted. She doesn't have much abdominal pain - mostly back pain. She states that she was up twice today to walk - but now she's very fatigued and it took a lot out of her. She denies any SOA, but describes some chest congestion, which has been chronic ever since she coded and "flatlined" 6 times. Nonetheless, she hasn't noticed any increase in breathing problems since she's been off oxygen today. She doesn't have much of an appetite and only ate a couple bites of her lunch. She states she's has had diarrhea since admission. Objective Vital signs: Temperature 99.8 F 11/22/16 07:53 Pulse Rate 105 H 11/22/16 08:00 Respiratory Rate 20 11/22/16 11:53 Blood Pressure 129/71 11/22/16 07:53 Pulse Oximetry 98 11/22/16 11:53 Height/Weight/BMI: Height 1.6 m Weight 80.7 kg Body Mass Index 32.4 - Constitutional Present: no acute distress, well nourished, well developed - Routine HEENT Exam ENT: Present: mucous membranes moist - Routine Respiratory Exam Present: CTA bilaterally - Routine Cardiovascular Exam Present: RRR, S1, S2 - Routine Abdominal Exam Present: soft. Absent: normoactive bowel sounds (hypoactive) - Routine Extremities Exam Present: pulses intact - Routine Skin Exam Present: intact, dry, warm - Routine Neurological Exam Present: alert, oriented X3 - Routine Psychiatric Exam Present: normal affect, cooperative Results - Labs CBC & Chem 7: 11/22/16 04:59 11/22/16 04:59 - ABG Interpretation ABG results: 11/12/16 11/14/16 11/19/16 01:28 22:40 07:05 ABG pH 7.389 7.455 H ABG pCO2 41 36 ABG pO2 89 88 ABG HCO3 25 26 ABG Total CO2 26 27 ABG O2 Saturation 97.0 97.0 ABG Base Excess 0.0 2.0 VBG pH 7.370 VBG pCO2 44 VBG pO2 40 VBG HCO3 25 VBG Total CO2 26.8 VBG O2 Saturation 73.0 VBG Base Excess -0.1 Assessment and Plan (1) Urinary tract infection Current visit: Yes Status: Acute (2) Sepsis Current visit: Yes Status: Acute DVT Prophylaxis: SCD's GI Prophylaxis: other (Prilosec) Resuscitation Status: Full Code Assessment and Plan: Assessment Sepsis secondary to UTI, present on admission, acute. Bacteremia with E. coli Hypotension (POA) - resolved with IVF Altered mental status with increased confusion and lethargy (POA) acute. Pulmonary edema - improved. Hyponatremia (POA) acute. Hypoxia, acute Hypertension. COPD & Pulmonary fibrosis. Pulmonary Hypertension, chronic. Hypercholesterolemia. GERD. Chronic back pain. Chronic kidney disease, stage III. History of shingles. Depression. Obesity with BMI 32.5. Plan Continue Ampicillin (11/13) for bacteremia PT/OT assessment yesterday - she required total assist and was unable to safely stand up. Her nurse also voiced significant safety concerns - she was barely able to stand with assist of 2 - once she landed back in bed and the other time her legs twisted up as she transferred. We may need to look into skilled therapy or IRU prior to going home. Chronic back pain - will try to contact Dr. Rebolledo's office on Thursday. She states that her pain pump is out of medication. Baclofen was cut back to 5 mg because of mental status changes, but we may be able to increase this back to 10 mg. Restart diclofenac. Continue PRN [place]. Weaned off oxygen today. BP stable on metoprolol - not elevated enough to warrant resuming amlodipine or Hyzaar. Hgb decreased to 9.3 from 11.8 on admission. Check stool for occult blood and check iron studies. Diarrhea - start culturelle. Discussed with RN - she's had loose stools today but wouldn't classify them as diarrhea. If she develops diarrhea, recommended for her to check C. difficile. D/W Dr. Anderson. Hospital Course Summary Disclaimer: The visit summary below is not to be considered part of the above Progress Note. Hospital Course: 11/11/16 (Admission) Assessment Sepsis secondary to UTI, present on admission, acute. Hypotension Altered mental status with increased confusion and lethargy, present on admission, acute. Hyponatremia, present on admission, acute. Hypertension, chronic. COPD, chronic. Hypercholesterolemia, chronic. GERD, chronic. Chronic back pain. Chronic kidney disease, stage III. Obesity, chronic. History of shingles. Depression, chronic. Plan Admit to inpatient status under the care of Dr. Anderson. Patient noted to meet sepsis criteria upon admission as indicated by fever ( 101.4), leukocytosis (WBC 16.1), bandemia (10%) and concern for altered mental status and increased confusion. UA confirmed UTI with + nitrite, 50-200 WBC and 3+ bacteria. UA and blood cultures pending. Rocephin 1g IV given in ED. Will continue Rocephin 1g daily for empiric antimicrobial coverage of suspected urinary pathogens. Tylenol as needed pain and fever control. Lactate 1.9 in ED. Will recheck at 2100. Procalcitonin elevated at 2.32. Patient was given 1L NS in ED. Hyponatremia noted on admission with sodium 131. Will continue NS at 125cc/hr for fluid resuscitation. Monitor closely for signs of fluid overload and daily weight. Initial blood pressure in ED was noted to be borderline low at 94/55. Improved with fluid resuscitation. Continue to monitor blood pressure closely and will monitor cardiac function closely on telemetry. Troponin in ED was negative at < 0.012. In light of low blood pressure, will hold home blood pressure medications including Norvasc 5mg, Losartan/HCTZ 50/12.5 and metoprolol XL. Continue home Prilosec for GERD and GI protection. SCDs for DVT prophylaxis. CXR in ED showed no acute cardiopulmonary abnormalities. Continue home inhalers and monitor respiratory function closely. Encourage incentive spirometry for pulmonary toileting. Anemia noted on admission with hemoglobin 10.9. History of chronic anemia. Monitor blood counts closely and continue home B12. Unable to reconcile medications in computer as current medication list has not been verified. Will try and obtain current medication list from [facility]. Upon discharge, patient's care will be returned to her PCP, Dr. Wheatley. 11/12/16 Patient transfer to CCU overnight due to low BP. IVF bolus given. BC positive for E coli - c/s pending. Will check CTA due to increased dyspnea and low BP to exclude PE. Continue Rocephin for antimicrobial support. IVF of NS at 125 for hydration. Start routine Miralax and Senna Plus due to significant constipation. PRN MOM and Dulcolax available. Continue to hold antihypertensives as BP low. Did decrease IVF to 75cc/hr and gave Lasix as breathing more short. Initialed neb treatments. 11/13/16 WBC decreased to 10.9. HBG stable at 10.1. Potassium 3.3 with Mg 1.4. Creatinine 0.8. BC showing pansensitive Ecoli. Will change Rocephin to Ampicillin 1 gram IV q 6 hours for coverage. Decrease IVF to 50cc/hr. Replace potassium and magnesium. Mucinex DM BID to help decrease cough and congestion. [place] prn cough. Acapella to help loosen secretions. CT showed no PE. Will check Echo due to low BP-? effusion. BP improving but still low at times. Continue to hold antihypertensives. Started BB due to tachycardia. 11/14/16 Continue Ampicillin for antimicrobial coverage Will stop IVF-concern for volume overload. Lasix 20mg IV x1 and monitor. Echo with hyperdynamic EF of 72% and pulmonary HTN. Wean O2-encourage breathing to help saturations. Continue neb treatments and Mucinex. 11/15/16 Still somnolent. Blood pressure with persistent elevation. Weight up. Start Lasix 40mg IV q8 hours to help motivate fluid. Increase Potassium to 20 mEq TIDWM due to Lasix use. Diamox 500mg po x1 to decrease potential or alkalosis. Hold on restarting outpatient BP medications until patient better diuresed. BiPAP as needed to help minimize respiratory fatigue. Solu-Medrol started by telehospitalist. Will stop and not appreciating wheezing. ABG with normal CO2 - encourage deep breathing and BiPAP to help maintain ventilation. Decrease Baclofen to 5mg TID due to somnolence. Continue ampicillin for antimicrobial coverage. Recheck BMP in am due to diuretics. CBC in am due to sepsis and leukocytosis. 11/16/16 Urine output increase and weight/edema decreasing with Lasix. Creatinine stable at 0.8. Will continue Lasix 40mg IV q 8 hours. Diamox 500mg this morning and evening. Additional oral potassium and magnesium due to decrease. Recheck CXR in am to evaluate pulmonary edema. Nursing to continue to wean O2 - acceptable to have saturations in mid 90s. Continue ampicillin for coverage. Work with bowel function (chronically constipated and has to disimpact self at home). Increase Senna Plus to BID. Encourage rectal Dulcolax. PRN [place]. 11/17/16 Diuresed well with Lasix/Diamox yesterday. Weight down 4 kg. Continue Lasix, reassess in a.m. Oxygenation improving with diuresis. Wean as saturation permits. Continue ampicillin for coverage. Convert to amoxicillin when consistently taking oral medications well to complete 2 weeks therapy. Leukocytosis normalizing. Work with bowel function (chronically constipated and has to disimpact self at home). Disimpact at this morning. Increase MiraLAX to BID; Senna Plus BID. Encourage rectal Dulcolax. PRN [place]. Macrocytic anemia, present on admission-check B-12/TSH Hyponatremia has resolved, blood pressure stable. 11/18/16 Diuresed well with Lasix or Lasix/Diamox the past 2 days. Weight down but BUN/ creatinine up slightly today. Continue Lasix at 40 mg daily instead of every 8 hours and monitor renal function/oxygen demand. Oxygenation improving with diuresis. Wean as saturation permits. Currently on 2 L-does not appear to have been on oxygen prior to admission. Continue ampicillin for coverage of Escherichia coli. Convert to amoxicillin when consistently taking oral medications well to complete 2 weeks therapy. Day 8 antibiotics (ceftriaxone /-11/13, ampicillin 10/-present) Leukocytosis improved. Continue bowel regimen-disimpacted yesterday. Macrocytic anemia, present on admission-check B-12/TSH Hyponatremia has resolved, blood pressure stable. Stable for transfer out of ICU. PT/OT consulted. 11/19/16 - Continue with ampicillin for Ecoli bacteremia (Day #9). Will stop Lasix - weight at baseline. Monitor volume status off diuretics. Wean O2 as able - patient uses O2 when sleeping. PT/OT to help improve functional status - very debilitated due to her acute illness. 11/20/16- Continue with ampicillin for Ecoli bacteremia (Day #10). Will have speech therapy reevaluate patient's swallow tomorrow morning as she is hopeful to get rid of thickened liquids and crushed pills. We did discuss in great detail with both patient and family that when patients have severe illness and weakness off and swallow does become more weak, causing increased risk of aspiration. 11/21/16- Continue Ampicillin(day 11) for antimicrobial coverage of E-coli bacteremia. Work on weaning down oxygen. Continue to encourage work with PT/OT for strengthening. Prior to hospitalization patient resides independently at [facility]. Discussed possibility of skilled or IRU once medically stable prior to discharge home independently. 11/22/16 - Continue Ampicillin (11/13) for bacteremia PT/OT assessment yesterday - she required total assist and was unable to safely stand up. Her nurse also voiced significant safety concerns - she was barely able to stand with assist of 2 - once she landed back in bed and the other time her legs twisted up as she transferred. We may need to look into skilled therapy or IRU prior to going home. Chronic back pain - will try to contact Dr. Rebolledo's office on Thursday. She states that her pain pump is out of medication. Baclofen was cut back to 5 mg because of mental status changes, but we may be able to increase this back to 10 mg. Restart diclofenac. Weaned off oxygen today. BP stable on metoprolol - not elevated enough to warrant resuming amlodipine or Hyzaar. Hgb decreased to 9.3 from 11.8 on admission. Check stool for occult blood and check iron studies. Diarrhea - start culturelle. Discussed with RN - she's had loose stools today but wouldn't classify them as diarrhea. If she develops diarrhea, recommended for her to check C. difficile. <Irvin Anderson - Last Filed: 11/22/16 16:11> Objective Vital signs: Temperature 99.8 F 11/22/16 07:53 Pulse Rate 105 H 11/22/16 08:00 Respiratory Rate 20 11/22/16 15:25 Blood Pressure 129/71 11/22/16 07:53 Pulse Oximetry 97 11/22/16 15:25 Height/Weight/BMI: Height 1.6 m Weight 80.7 kg Body Mass Index 32.4 Results - Labs CBC & Chem 7: 11/22/16 04:59 11/22/16 04:59 - ABG Interpretation ABG results: 11/12/16 11/14/16 11/19/16 01:28 22:40 07:05 ABG pH 7.389 7.455 H ABG pCO2 41 36 ABG pO2 89 88 ABG HCO3 25 26 ABG Total CO2 26 27 ABG O2 Saturation 97.0 97.0 ABG Base Excess 0.0 2.0 VBG pH 7.370 VBG pCO2 44 VBG pO2 40 VBG HCO3 25 VBG Total CO2 26.8 VBG O2 Saturation 73.0 VBG Base Excess -0.1 Assessment and Plan (1) Urinary tract infection Current visit: Yes Status: Acute (2) Sepsis Current visit: Yes Status: Acute Assessment and Plan: Assessment Sepsis secondary to UTI, present on admission, acute. Bacteremia with E. coli Hypotension (POA) - resolved with IVF Altered mental status with increased confusion and lethargy (POA) acute. Pulmonary edema - improved. Hyponatremia (POA) acute. Hypoxia, acute Hypertension. COPD & Pulmonary fibrosis. Pulmonary Hypertension, chronic. Hypercholesterolemia. GERD. Chronic back pain. Chronic kidney disease, stage III. History of shingles. Depression. Obesity with BMI 32.5. Have independently interviewed and examined pt. Chart reviewed. Case discussed with my STUDIO POTTER. Care plan developed with my supervision; agree with above. Doing okay today. Breathing well-maintaining saturations on RA. No feeling SOA or congested. Appetite fair-food not tasting well, but trying to find thing to eat. No nausea. Was up this morning with therapy. Lungs: decreased, no distress CV: regular MSE: awake alert appropriate Plan: Continue Ampicillin. Baclofen increased and diclofenac restarted. Encourage activities and strengthening. Patient with significant chronic constipation-stools moving. - Time spent with patient Time with patient PN: 25 minutes Hospital Course Summary Disclaimer: The visit summary below is not to be considered part of the above Progress Note.
[2016-11-22] MEDS: LACTOBACILLUS (15B cfu) CAPSULE PO SCH (17:06)
[2016-11-22] MEDS: DICLOFENAC SODIUM DR 25 MG TABLET PO SCH (20:48)
[2016-11-22] MEDS: ATORVASTATIN 10 MG TABLET PO SCH (20:49)
[2016-11-22] MEDS: NS FLUSH BAG 500ml IV PRN (22:25)
[2016-11-23] MEDS: HYDROCODONE/APAP 5mg/325mg TABLET PO PRN ×2 (00:41→23:09)
[2016-11-23] MEDS: SALINE FLUSH 10ml SYRINGE IV PRN ×2 (05:01→22:16)
[2016-11-23] MEDS: AMPICILLIN 1 GM in NS 100 ML IV SCH ×4 (05:01→22:15)
[2016-11-23] MEDS: OMEPRAZOLE 20 MG CAPSULE PO SCH (06:40)
[2016-11-23] MEDS: ALBUTEROL/IPRATROPIUM 2.5mg-0.5mg/3ml NEB AEROSOL SCH ×2 (07:36→18:52)
[2016-11-23] MEDS: BUDESONIDE INH.SOLN 0.5mg/2ml NEB AEROSOL SCH ×2 (07:36→18:51)
[2016-11-23] MEDS: DICLOFENAC SODIUM DR 25 MG TABLET PO SCH ×2 (10:21→21:57)
[2016-11-23] MEDS: PSYLLIUM PACKET PO SCH (10:23)
[2016-11-23] MEDS: ACYCLOVIR 200 MG CAPSULE PO SCH ×2 (10:24→21:59)
[2016-11-23] MEDS: POLYETHYL GLYCOL 3350 17gm PACKET PO SCH (10:24)
[2016-11-23] MEDS: CYANOCOBALAMIN (B-12) 500mcg TABLET PO SCH (10:26)
[2016-11-23] MEDS: GUAIFENESIN/D-METHORPHAN 600mg/30mg TABLET PO SCH ×2 (10:27→21:58)
[2016-11-23] MEDS: LACTOBACILLUS (15B cfu) CAPSULE PO SCH ×3 (10:27→17:00)
[2016-11-23] MEDS: CALCIUM 500 + VIT D 200 TABLET PO SCH (10:28)
[2016-11-23] MEDS: DESIPRAMINE 25 MG TABLET PO SCH ×2 (10:29→21:58)
[2016-11-23] MEDS: MULTI-VITAMIN + MINERAL TABLET PO SCH (10:30)
[2016-11-23] MEDS: BACLOFEN 10 MG TABLET PO SCH ×3 (10:30→21:59)
[2016-11-23] MEDS: SALINE 0.65% NASAL SPRAY 44 ML BOTTLE EA NOSTRIL SCH ×4 (10:32→22:08)
[2016-11-23] MEDS: SENNA + DOCUSATE TABLET PO SCH (10:32)
[2016-11-23] MEDS: DIVALPROEX SPRINKLE 125 MG CAPSULE PO SCH ×4 (10:33→21:58)
[2016-11-23] MEDS: MAGNESIUM OXIDE 400 MG TABLET PO SCH (10:35)
[2016-11-23] MEDS: ENOXAPARIN 40 MG/0.4 ML INJECTION SQ SCH (10:43)
[2016-11-23] MEDS ORDERED: SENNA + DOCUSATE TABLET PO PRN (13:25)
[2016-11-23] MEDS ORDERED: POLYETHYL GLYCOL 3350 17gm PACKET PO PRN (13:25)
--- NOTE | 2016-11-23 13:49 | Progress Note ---
<Philly Marquez - Last Filed: 11/23/16 13:46> Subjective: Kait is seen today in follow up. She is up in chair, reports she is working on getting better. Is alert, jokes around. Denies pain or other concerns. Chart is reviewed for collateral information. Objective Vital signs: Temperature 96.8 F 11/23/16 07:22 Pulse Rate 86 11/23/16 07:22 Respiratory Rate 16 11/23/16 10:20 Blood Pressure 114/69 11/23/16 07:22 Pulse Oximetry 95 11/23/16 07:30 Height/Weight/BMI: Height 1.6 m Weight 81.3 kg Body Mass Index 32.4 - Constitutional Present: no acute distress, well nourished, cooperative - Routine HEENT Exam Head: Present: normocephalic, atraumatic Eye: Present: EOMI, PERRL ENT: Present: mucous membranes moist - Routine Respiratory Exam Present: decreased breath sounds, CTA bilaterally, diminished air movement. Absent: rhonchi, wheezes, crackles - Routine Cardiovascular Exam Present: RRR, S1, S2, no murmur - Routine Abdominal Exam Present: soft, normoactive bowel sounds, non distended, non tender - Routine Extremities Exam Present: edema (Trace LE edema), non tender, full ROM - Routine Musculoskeletal Exam Musculoskeletal: Present: no clubbing or cyanosis, moving extremities well - Routine Skin Exam Present: intact, dry, pallor, warm - Routine Neurological Exam Present: alert, moving all extremities - Routine Psychiatric Exam Present: normal affect, cooperative Results - Labs CBC & Chem 7: 11/23/16 04:28 11/23/16 04:28 - ABG Interpretation ABG results: 11/12/16 11/14/16 11/19/16 01:28 22:40 07:05 ABG pH 7.389 7.455 H ABG pCO2 41 36 ABG pO2 89 88 ABG HCO3 25 26 ABG Total CO2 26 27 ABG O2 Saturation 97.0 97.0 ABG Base Excess 0.0 2.0 VBG pH 7.370 VBG pCO2 44 VBG pO2 40 VBG HCO3 25 VBG Total CO2 26.8 VBG O2 Saturation 73.0 VBG Base Excess -0.1 - Impressions Reviewed imaging in chart. Assessment and Plan (1) Urinary tract infection Current visit: Yes Status: Acute (2) Sepsis Current visit: Yes Status: Acute 11/23/16 13:49 E.Coli UTI with Bacteremia DVT Prophylaxis: Lovenox GI Prophylaxis: other (PPI) Resuscitation Status: Full Code Assessment and Plan: Assessment Sepsis secondary to UTI, present on admission, acute. Bacteremia with E. coli Hypotension (POA) - resolved with IVF Altered mental status with increased confusion and lethargy (POA) acute. Pulmonary edema - improved. Hyponatremia (POA) acute. Hypoxia, acute Hypertension. COPD & Pulmonary fibrosis. Pulmonary Hypertension, chronic. Hypercholesterolemia. GERD. Chronic back pain. (Implanted pain pump in abdomen) Chronic kidney disease, stage III. History of shingles. Depression. Obesity with BMI 32.5. Plan: 11/23/16 She is slowly improving. Good humor, joking around- perhaps a bit confused. Continue IV Ampicillin D #11. WBC improving. Afebrile. Will order repeat BC in AM to confirm clearing of the bacteria. Echo reviewed-stable. She has thickened liquids at bedside and seems to be following well. Ongoing anemia- reactive? FOB negative. Iron panel negative. Repeat labs in AM. Continue to mobilize, encourage activity. Will likely need PT/OT following medical stabilization. Hospital Course Summary Disclaimer: The visit summary below is not to be considered part of the above Progress Note. Hospital Course: 11/11/16 (Admission) Assessment Sepsis secondary to UTI, present on admission, acute. Hypotension Altered mental status with increased confusion and lethargy, present on admission, acute. Hyponatremia, present on admission, acute. Hypertension, chronic. COPD, chronic. Hypercholesterolemia, chronic. GERD, chronic. Chronic back pain. Chronic kidney disease, stage III. Obesity, chronic. History of shingles. Depression, chronic. Plan Admit to inpatient status under the care of Dr. Anderson. Patient noted to meet sepsis criteria upon admission as indicated by fever ( 101.4), leukocytosis (WBC 16.1), bandemia (10%) and concern for altered mental status and increased confusion. UA confirmed UTI with + nitrite, 50-200 WBC and 3+ bacteria. UA and blood cultures pending. Rocephin 1g IV given in ED. Will continue Rocephin 1g daily for empiric antimicrobial coverage of suspected urinary pathogens. Tylenol as needed pain and fever control. Lactate 1.9 in ED. Will recheck at 2100. Procalcitonin elevated at 2.32. Patient was given 1L NS in ED. Hyponatremia noted on admission with sodium 131. Will continue NS at 125cc/hr for fluid resuscitation. Monitor closely for signs of fluid overload and daily weight. Initial blood pressure in ED was noted to be borderline low at 94/55. Improved with fluid resuscitation. Continue to monitor blood pressure closely and will monitor cardiac function closely on telemetry. Troponin in ED was negative at < 0.012. In light of low blood pressure, will hold home blood pressure medications including Norvasc 5mg, Losartan/HCTZ 50/12.5 and metoprolol XL. Continue home Prilosec for GERD and GI protection. SCDs for DVT prophylaxis. CXR in ED showed no acute cardiopulmonary abnormalities. Continue home inhalers and monitor respiratory function closely. Encourage incentive spirometry for pulmonary toileting. Anemia noted on admission with hemoglobin 10.9. History of chronic anemia. Monitor blood counts closely and continue home B12. Unable to reconcile medications in computer as current medication list has not been verified. Will try and obtain current medication list from [facility]. Upon discharge, patient's care will be returned to her PCP, Dr. Wheatley. 11/12/16 Patient transfer to CCU overnight due to low BP. IVF bolus given. BC positive for E coli - c/s pending. Will check CTA due to increased dyspnea and low BP to exclude PE. Continue Rocephin for antimicrobial support. IVF of NS at 125 for hydration. Start routine Miralax and Senna Plus due to significant constipation. PRN MOM and Dulcolax available. Continue to hold antihypertensives as BP low. Did decrease IVF to 75cc/hr and gave Lasix as breathing more short. Initialed neb treatments. 11/13/16 WBC decreased to 10.9. HBG stable at 10.1. Potassium 3.3 with Mg 1.4. Creatinine 0.8. BC showing pansensitive Ecoli. Will change Rocephin to Ampicillin 1 gram IV q 6 hours for coverage. Decrease IVF to 50cc/hr. Replace potassium and magnesium. Mucinex DM BID to help decrease cough and congestion. Ricola prn cough. Acapella to help loosen secretions. CT showed no PE. Will check Echo due to low BP-? effusion. BP improving but still low at times. Continue to hold antihypertensives. Started BB due to tachycardia. 11/14/16 Continue Ampicillin for antimicrobial coverage Will stop IVF-concern for volume overload. Lasix 20mg IV x1 and monitor. Echo with hyperdynamic EF of 72% and pulmonary HTN. Wean O2-encourage breathing to help saturations. Continue neb treatments and Mucinex. 11/15/16 Still somnolent. Blood pressure with persistent elevation. Weight up. Start Lasix 40mg IV q8 hours to help motivate fluid. Increase Potassium to 20 mEq TIDWM due to Lasix use. Diamox 500mg po x1 to decrease potential or alkalosis. Hold on restarting outpatient BP medications until patient better diuresed. BiPAP as needed to help minimize respiratory fatigue. Solu-Medrol started by telehospitalist. Will stop and not appreciating wheezing. ABG with normal CO2 - encourage deep breathing and BiPAP to help maintain ventilation. Decrease Baclofen to 5mg TID due to somnolence. Continue ampicillin for antimicrobial coverage. Recheck BMP in am due to diuretics. CBC in am due to sepsis and leukocytosis. 11/16/16 Urine output increase and weight/edema decreasing with Lasix. Creatinine stable at 0.8. Will continue Lasix 40mg IV q 8 hours. Diamox 500mg this morning and evening. Additional oral potassium and magnesium due to decrease. Recheck CXR in am to evaluate pulmonary edema. Nursing to continue to wean O2 - acceptable to have saturations in mid 90s. Continue ampicillin for coverage. Work with bowel function (chronically constipated and has to disimpact self at home). Increase Senna Plus to BID. Encourage rectal Dulcolax. PRN Fleets. 11/17/16 Diuresed well with Lasix/Diamox yesterday. Weight down 4 kg. Continue Lasix, reassess in a.m. Oxygenation improving with diuresis. Wean as saturation permits. Continue ampicillin for coverage. Convert to amoxicillin when consistently taking oral medications well to complete 2 weeks therapy. Leukocytosis normalizing. Work with bowel function (chronically constipated and has to disimpact self at home). Disimpact at this morning. Increase MiraLAX to BID; Senna Plus BID. Encourage rectal Dulcolax. PRN Fleets. Macrocytic anemia, present on admission-check B-12/TSH Hyponatremia has resolved, blood pressure stable. 11/18/16 Diuresed well with Lasix or Lasix/Diamox the past 2 days. Weight down but BUN/ creatinine up slightly today. Continue Lasix at 40 mg daily instead of every 8 hours and monitor renal function/oxygen demand. Oxygenation improving with diuresis. Wean as saturation permits. Currently on 2 L-does not appear to have been on oxygen prior to admission. Continue ampicillin for coverage of Escherichia coli. Convert to amoxicillin when consistently taking oral medications well to complete 2 weeks therapy. Day 8 antibiotics (ceftriaxone 11/11-11/13, ampicillin 11/13-present) Leukocytosis improved. Continue bowel regimen-disimpacted yesterday. Macrocytic anemia, present on admission-check B- Hyponatremia has resolved, blood pressure stable. Stable for transfer out of ICU. PT/OT consulted. 11/19/16 - Continue with ampicillin for Ecoli bacteremia (Day #9). Will stop Lasix - weight at baseline. Monitor volume status off diuretics. Wean O2 as able - patient uses O2 when sleeping. PT/OT to help improve functional status - very debilitated due to her acute illness. 11/20/16- Continue with ampicillin for Ecoli bacteremia (Day #10). Will have speech therapy reevaluate patient's swallow tomorrow morning as she is hopeful to get rid of thickened liquids and crushed pills. We did discuss in great detail with both patient and family that when patients have severe illness and weakness off and swallow does become more weak, causing increased risk of aspiration. 11/21/16- Continue Ampicillin(day 11) for antimicrobial coverage of E-coli bacteremia. Work on weaning down oxygen. Continue to encourage work with PT/OT for strengthening. Prior to hospitalization patient resides independently at [facility]. Discussed possibility of skilled or IRU once medically stable prior to discharge home independently. 11/22/16 - Continue Ampicillin (11/13) for bacteremia PT/OT assessment yesterday - she required total assist and was unable to safely stand up. Her nurse also voiced significant safety concerns - she was barely able to stand with assist of 2 - once she landed back in bed and the other time her legs twisted up as she transferred. We may need to look into skilled therapy or IRU prior to going home. Chronic back pain - will try to contact Dr. Rebolledo's office on Thursday. She states that her pain pump is out of medication. Baclofen was cut back to 5 mg because of mental status changes, but we may be able to increase this back to 10 mg. Restart diclofenac. Weaned off oxygen today. BP stable on metoprolol - not elevated enough to warrant resuming amlodipine or Hyzaar. Hgb decreased to 9.3 from 11.8 on admission. Check stool for occult blood and check iron studies. Diarrhea - start culturelle. Discussed with RN - she's had loose stools today but wouldn't classify them as diarrhea. If she develops diarrhea, recommended for her to check C. difficile. 11/23/16 13:56 She is slowly improving. Good humor, joking around- perhaps a bit confused. Continue IV Ampicillin D #11. WBC improving. Afebrile. Will order repeat BC in AM to confirm clearing of the bacteria. Echo reviewed-stable. She has thickened liquids at bedside and seems to be following well. Ongoing anemia- reactive? FOB negative. Iron panel negative. Repeat labs in AM. Continue to mobilize, encourage activity. Will likely need PT/OT following medical stabilization. <Irvin Anderson - Last Filed: 11/23/16 14:21> Objective Vital signs: Temperature 96.8 F 11/23/16 07:22 Pulse Rate 86 11/23/16 07:22 Respiratory Rate 16 11/23/16 10:20 Blood Pressure 114/69 11/23/16 07:22 Pulse Oximetry 95 11/23/16 07:30 Height/Weight/BMI: Height 1.6 m Weight 81.3 kg Body Mass Index 32.4 Results - Labs CBC & Chem 7: 11/23/16 04:28 11/23/16 04:28 - ABG Interpretation ABG results: 11/12/16 11/14/16 11/19/16 01:28 22:40 07:05 ABG pH 7.389 7.455 H ABG pCO2 41 36 ABG pO2 89 88 ABG HCO3 25 26 ABG Total CO2 26 27 ABG O2 Saturation 97.0 97.0 ABG Base Excess 0.0 2.0 VBG pH 7.370 VBG pCO2 44 VBG pO2 40 VBG HCO3 25 VBG Total CO2 26.8 VBG O2 Saturation 73.0 VBG Base Excess -0.1 Assessment and Plan (1) Urinary tract infection Current visit: Yes Status: Acute (2) Sepsis Current visit: Yes Status: Acute Assessment and Plan: Assessment Sepsis secondary to UTI, present on admission, acute. Bacteremia with E. coli Hypotension (POA) - resolved with IVF Altered mental status with increased confusion and lethargy (POA) acute. Pulmonary edema - improved. Hyponatremia (POA) acute. Hypoxia, acute Hypertension. COPD & Pulmonary fibrosis. Pulmonary Hypertension, chronic. Hypercholesterolemia. GERD. Chronic back pain. (Implanted pain pump in abdomen) Chronic kidney disease, stage III. History of shingles. Depression. Obesity with BMI 32.5. Have independently interviewed and examined pt. Chart reviewed. Case discussed with my SPORTS INFORMATION DIRECTOR. Care plan developed with my supervision; agree with above. Doing okay today. Up in chair. Trying to be more active. Breathing well-not congested or SOA. Not needing O2. Oral drive okay. Bowels moving well-has been refusing Miralax and Senna Plus. No urinary symptoms. No f/c. CV: regular Lungs: decreased bilaterally. Good air movement. No distress on RA. MSE: awake alert appropriate. Gen: looks more energetic Plan: Continue Ampicillin-2 week course of antibiotics nearly completed. Encouraging that WBC has trended down. Encourage activities and strengthening. Continue with supportive care. - Time spent with patient Time with patient PN: 25 minutes Hospital Course Summary Disclaimer: The visit summary below is not to be considered part of the above Progress Note.
[2016-11-23] MEDS: ATORVASTATIN 10 MG TABLET PO SCH (21:59)
[2016-11-23] MEDS: NS FLUSH BAG 500ml IV PRN (22:17)
[2016-11-24] MEDS: AMPICILLIN 1 GM in NS 100 ML IV SCH ×2 (04:58→10:54)
[2016-11-24] MEDS: SALINE FLUSH 10ml SYRINGE IV PRN ×2 (04:59→05:54)
[2016-11-24] MEDS: OMEPRAZOLE 20 MG CAPSULE PO SCH (05:54)
[2016-11-24 07:18] VITALS: BP 113/72; PULSE 87; TEMP 97.8; O2SAT 99
[2016-11-24] MEDS: ALBUTEROL/IPRATROPIUM 2.5mg-0.5mg/3ml NEB AEROSOL SCH (08:30)
[2016-11-24] MEDS: BUDESONIDE INH.SOLN 0.5mg/2ml NEB AEROSOL SCH (08:30)
[2016-11-24 08:35] VITALS: RESP 18
[2016-11-24] MEDS: MULTI-VITAMIN + MINERAL TABLET PO SCH (09:19)
[2016-11-24] MEDS: LACTOBACILLUS (15B cfu) CAPSULE PO SCH ×2 (09:20→13:18)
[2016-11-24] MEDS: DIVALPROEX SPRINKLE 125 MG CAPSULE PO SCH ×2 (09:20→13:18)
[2016-11-24] MEDS: BACLOFEN 10 MG TABLET PO SCH (09:20)
[2016-11-24] MEDS: PSYLLIUM PACKET PO SCH (09:21)
[2016-11-24] MEDS: SALINE 0.65% NASAL SPRAY 44 ML BOTTLE EA NOSTRIL SCH ×2 (09:21→13:18)
[2016-11-24] MEDS: CYANOCOBALAMIN (B-12) 500mcg TABLET PO SCH (10:50)
[2016-11-24] MEDS: MAGNESIUM OXIDE 400 MG TABLET PO SCH (10:51)
[2016-11-24] MEDS: CALCIUM 500 + VIT D 200 TABLET PO SCH (10:51)
[2016-11-24] MEDS: DESIPRAMINE 25 MG TABLET PO SCH (10:52)
[2016-11-24] MEDS: ACYCLOVIR 200 MG CAPSULE PO SCH (10:52)
[2016-11-24] MEDS: DICLOFENAC SODIUM DR 25 MG TABLET PO SCH (10:53)
[2016-11-24] MEDS: GUAIFENESIN/D-METHORPHAN 600mg/30mg TABLET PO SCH (10:53)
[2016-11-24] MEDS: ENOXAPARIN 40 MG/0.4 ML INJECTION SQ SCH (10:54)
--- NOTE | 2016-11-24 13:00 | Progress Note ---
Subjective: F/U: Sepsis, bacteremia with E coli, UTI Doing well today. Worked with speech who upgraded diet (removed thicken liquids) . Appetite doing well. No nausea or ab pain. Reports had stool this morning. Urinating well without pain or burning. Breathing well. Strength improving. No f/c. Objective Vital signs: Temperature 97.8 F 11/24/16 07:17 Pulse Rate 87 11/24/16 07:17 Respiratory Rate 18 11/24/16 08:32 Blood Pressure 113/72 11/24/16 07:17 Pulse Oximetry 99 11/24/16 08:32 Height/Weight/BMI: Height 1.6 m Weight 82.4 kg Body Mass Index 32.4 - Constitutional Present: well nourished, well developed, cooperative - Routine HEENT Exam Head: Present: normocephalic, atraumatic Eye: Present: EOMI, PERRL ENT: Present: mucous membranes moist - Routine Respiratory Exam Present: CTA bilaterally. Absent: rales, respiratory distress, rhonchi, wheezes , crackles - Routine Cardiovascular Exam Present: RRR, no murmur - Routine Abdominal Exam Present: soft, non distended, non tender. Absent: normoactive bowel sounds - Routine Extremities Exam Present: no edema, pulses intact. Absent: cyanosis, clubbing - Routine Musculoskeletal Exam Musculoskeletal: Present: no clubbing or cyanosis - Routine Skin Exam Present: dry, warm - Routine Neurological Exam Present: alert, oriented X3, CN II-XII intact, moving all extremities, vision grossly intact, hearing grossly intact. Absent: altered mental status - Routine Psychiatric Exam Present: normal affect, normal thought process, cooperative Results - Labs CBC & Chem 7: 11/24/16 04:03 11/24/16 04:03 - ABG Interpretation ABG results: 11/12/16 11/14/16 11/19/16 01:28 22:40 07:05 ABG pH 7.389 7.455 H ABG pCO2 41 36 ABG pO2 89 88 ABG HCO3 25 26 ABG Total CO2 26 27 ABG O2 Saturation 97.0 97.0 ABG Base Excess 0.0 2.0 VBG pH 7.370 VBG pCO2 44 VBG pO2 40 VBG HCO3 25 VBG Total CO2 26.8 VBG O2 Saturation 73.0 VBG Base Excess -0.1 Assessment and Plan (1) Urinary tract infection Current visit: Yes Status: Acute (2) Sepsis Current visit: Yes Status: Acute DVT Prophylaxis: SCD's, Lovenox Resuscitation Status: Full Code Assessment and Plan: Assessment Sepsis secondary to UTI, present on admission, acute. Bacteremia with E. coli Hypotension (POA) - resolved with IVF Altered mental status with increased confusion and lethargy (POA) acute; - resolved. Pulmonary edema - improved. Hyponatremia (POA) acute. Hypoxia, acute Hypertension. COPD & Pulmonary fibrosis. Pulmonary Hypertension, chronic. Hypercholesterolemia. GERD. Chronic back pain. (Implanted pain pump in abdomen) Chronic kidney disease, stage III. History of shingles. Depression. Obesity with BMI 32.5. Plan Continue with Ampicillin - course nearly completed. WBC normalized. Blood pressure stable with Toprol XL 50mg daily. Diet advance by speech - ground meat diet with regular liquids. CM looking into discharge options - accepted to [facility]; IRU screen pending. Nystatin to areas of tinea in groin. Anticipate discharge in near future. Case discussed with DM. Time spent with patient care 25 minutes. Hospital Course Summary Disclaimer: The visit summary below is not to be considered part of the above Progress Note. Hospital Course: 11/11/16 (Admission) Assessment Sepsis secondary to UTI, present on admission, acute. Hypotension Altered mental status with increased confusion and lethargy, present on admission, acute. Hyponatremia, present on admission, acute. Hypertension, chronic. COPD, chronic. Hypercholesterolemia, chronic. GERD, chronic. Chronic back pain. Chronic kidney disease, stage III. Obesity, chronic. History of shingles. Depression, chronic. Plan Admit to inpatient status under the care of Dr. Anderson. Patient noted to meet sepsis criteria upon admission as indicated by fever ( 101.4), leukocytosis (WBC 16.1), bandemia (10%) and concern for altered mental status and increased confusion. UA confirmed UTI with + nitrite, 50-200 WBC and 3+ bacteria. UA and blood cultures pending. Rocephin 1g IV given in ED. Will continue Rocephin 1g daily for empiric antimicrobial coverage of suspected urinary pathogens. Tylenol as needed pain and fever control. Lactate 1.9 in ED. Will recheck at 2100. Procalcitonin elevated at 2.32. Patient was given 1L NS in ED. Hyponatremia noted on admission with sodium 131. Will continue NS at 125cc/hr for fluid resuscitation. Monitor closely for signs of fluid overload and daily weight. Initial blood pressure in ED was noted to be borderline low at 94/55. Improved with fluid resuscitation. Continue to monitor blood pressure closely and will monitor cardiac function closely on telemetry. Troponin in ED was negative at < 0.012. In light of low blood pressure, will hold home blood pressure medications including Norvasc 5mg, Losartan/HCTZ 50/12.5 and metoprolol XL. Continue home Prilosec for GERD and GI protection. SCDs for DVT prophylaxis. CXR in ED showed no acute cardiopulmonary abnormalities. Continue home inhalers and monitor respiratory function closely. Encourage incentive spirometry for pulmonary toileting. Anemia noted on admission with hemoglobin 10.9. History of chronic anemia. Monitor blood counts closely and continue home B12. Unable to reconcile medications in computer as current medication list has not been verified. Will try and obtain current medication list from [facility]. Upon discharge, patient's care will be returned to her PCP, Dr. Wheatley. 11/12/16 Patient transfer to CCU overnight due to low BP. IVF bolus given. BC positive for E coli - c/s pending. Will check CTA due to increased dyspnea and low BP to exclude PE. Continue Rocephin for antimicrobial support. IVF of NS at 125 for hydration. Start routine Miralax and Senna Plus due to significant constipation. PRN MOM and Dulcolax available. Continue to hold antihypertensives as BP low. Did decrease IVF to 75cc/hr and gave Lasix as breathing more short. Initialed neb treatments. 11/13/16 WBC decreased to 10.9. HBG stable at 10.1. Potassium 3.3 with Mg 1.4. Creatinine 0.8. BC showing pansensitive Ecoli. Will change Rocephin to Ampicillin 1 gram IV q 6 hours for coverage. Decrease IVF to 50cc/hr. Replace potassium and magnesium. Mucinex DM BID to help decrease cough and congestion. Ricola prn cough. Acapella to help loosen secretions. CT showed no PE. Will check Echo due to low BP-? effusion. BP improving but still low at times. Continue to hold antihypertensives. Started BB due to tachycardia. 11/14/16 Continue Ampicillin for antimicrobial coverage Will stop IVF-concern for volume overload. Lasix 20mg IV x1 and monitor. Echo with hyperdynamic EF of 72% and pulmonary HTN. Wean O2-encourage breathing to help saturations. Continue neb treatments and Mucinex. 11/15/16 Still somnolent. Blood pressure with persistent elevation. Weight up. Start Lasix 40mg IV q8 hours to help motivate fluid. Increase Potassium to 20 mEq TIDWM due to Lasix use. Diamox 500mg po x1 to decrease potential or alkalosis. Hold on restarting outpatient BP medications until patient better diuresed. BiPAP as needed to help minimize respiratory fatigue. Solu-Medrol started by telehospitalist. Will stop and not appreciating wheezing. ABG with normal CO2 - encourage deep breathing and BiPAP to help maintain ventilation. Decrease Baclofen to 5mg TID due to somnolence. Continue ampicillin for antimicrobial coverage. Recheck BMP in am due to diuretics. CBC in am due to sepsis and leukocytosis. 11/16/16 Urine output increase and weight/edema decreasing with Lasix. Creatinine stable at 0.8. Will continue Lasix 40mg IV q 8 hours. Diamox 500mg this morning and evening. Additional oral potassium and magnesium due to decrease. Recheck CXR in am to evaluate pulmonary edema. Nursing to continue to wean O2 - acceptable to have saturations in mid 90s. Continue ampicillin for coverage. Work with bowel function (chronically constipated and has to disimpact self at home). Increase Senna Plus to BID. Encourage rectal Dulcolax. PRN Fleets. 11/17/16 Diuresed well with Lasix/Diamox yesterday. Weight down 4 kg. Continue Lasix, reassess in a.m. Oxygenation improving with diuresis. Wean as saturation permits. Continue ampicillin for coverage. Convert to amoxicillin when consistently taking oral medications well to complete 2 weeks therapy. Leukocytosis normalizing. Work with bowel function (chronically constipated and has to disimpact self at home). Disimpact at this morning. Increase MiraLAX to BID; Senna Plus BID. Encourage rectal Dulcolax. PRN Fleets. Macrocytic anemia, present on admission-check B-12/TSH Hyponatremia has resolved, blood pressure stable. 11/18/16 Diuresed well with Lasix or Lasix/Diamox the past 2 days. Weight down but BUN/ creatinine up slightly today. Continue Lasix at 40 mg daily instead of every 8 hours and monitor renal function/oxygen demand. Oxygenation improving with diuresis. Wean as saturation permits. Currently on 2 L-does not appear to have been on oxygen prior to admission. Continue ampicillin for coverage of Escherichia coli. Convert to amoxicillin when consistently taking oral medications well to complete 2 weeks therapy. Day 8 antibiotics (ceftriaxone 10/3-11/13, ampicillin 10/5-present) Leukocytosis improved. Continue bowel regimen-disimpacted yesterday. Macrocytic anemia, present on admission-check B-12/TSH Hyponatremia has resolved, blood pressure stable. Stable for transfer out of ICU. PT/OT consulted. 11/19/16 - Continue with ampicillin for Ecoli bacteremia (Day #9). Will stop Lasix - weight at baseline. Monitor volume status off diuretics. Wean O2 as able - patient uses O2 when sleeping. PT/OT to help improve functional status - very debilitated due to her acute illness. 11/20/16- Continue with ampicillin for Ecoli bacteremia (Day #10). Will have speech therapy reevaluate patient's swallow tomorrow morning as she is hopeful to get rid of thickened liquids and crushed pills. We did discuss in great detail with both patient and family that when patients have severe illness and weakness off and swallow does become more weak, causing increased risk of aspiration. 11/21/16- Continue Ampicillin(day 11) for antimicrobial coverage of E-coli bacteremia. Work on weaning down oxygen. Continue to encourage work with PT/OT for strengthening. Prior to hospitalization patient resides independently at [facility]. Discussed possibility of skilled or IRU once medically stable prior to discharge home independently. 11/22/16 - Continue Ampicillin (11/13) for bacteremia PT/OT assessment yesterday - she required total assist and was unable to safely stand up. Her nurse also voiced significant safety concerns - she was barely able to stand with assist of 2 - once she landed back in bed and the other time her legs twisted up as she transferred. We may need to look into skilled therapy or IRU prior to going home. Chronic back pain - will try to contact Dr. Rebolledo's office on Thursday. She states that her pain pump is out of medication. Baclofen was cut back to 5 mg because of mental status changes, but we may be able to increase this back to 10 mg. Restart diclofenac. Weaned off oxygen today. BP stable on metoprolol - not elevated enough to warrant resuming amlodipine or Hyzaar. Hgb decreased to 9.3 from 11.8 on admission. Check stool for occult blood and check iron studies. Diarrhea - start Culturelle. Discussed with RN - she's had loose stools today but wouldn't classify them as diarrhea. If she develops diarrhea, recommended for her to check C. difficile. 11/23/16 She is slowly improving. Good humor, joking around- perhaps a bit confused. Continue IV Ampicillin (Day #13). WBC improving. Afebrile. She has thickened liquids at bedside and seems to be following well. Continue to mobilize, encourage activity. Will likely need PT/OT following medical stabilization. 11/24/16 Continue with Ampicillin - course nearly completed. WBC normalized. Blood pressure stable with Toprol XL 50mg daily. Diet advance by speech - ground meat diet with regular liquids. CM looking into discharge options - accepted to [facility]; IRU screen pending. Nystatin to areas of tinea in groin. Anticipate discharge in near future.
--- NOTE | 2016-11-24 14:06 | Discharge Summary ---
Discharge Information Date of admission: 11/11/16 16:10 Anticipated date of discharge: 11/24/16 Attending Physician: Irvin Anderson MD Primary care physician: Honorio Solis MD Consults: [facility] Consult: ulceration medial left upper groin/thigh PT/OT/Speech - Discharge Diagnosis (1) Urinary tract infection Status: Acute (2) Sepsis Status: Acute Discharge Diagnosis: Discharge diagnosis Sepsis secondary to UTI, present on admission, acute. Bacteremia with E. coli Associated conditions and complications Hypotension (POA) - resolved with IVF Altered mental status with increased confusion and lethargy (POA) acute; - resolved. Pulmonary edema - resolved. Hyponatremia (POA) acute. Hypoxia, acute Hypertension. COPD & Pulmonary fibrosis. Pulmonary Hypertension, chronic. Hypercholesterolemia. GERD. Chronic back pain. (Implanted pain pump in abdomen) Chronic kidney disease, stage III. History of shingles. Depression. Obesity with BMI 32.5. - Laboratory Labs: Admit Lab 11/11/16 14:58 WBC 16.1 H Hgb 10.9 L Hct 33.0 L MCV 102.5 H Plt Count 179 Neutrophils % (Manual) 79.0 H Band Neutrophils % 10.0 H Lymphocytes % (Manual) 3.0 L Monocytes % (Manual) 8.0 Admit Lab 11/11/16 11/11/16 14:58 14:58 Sodium 131 L Potassium 3.7 Chloride 94 L Carbon Dioxide 29 Anion Gap 8 BUN 20.0 H Creatinine 1.2 GFR Calculation 44 BUN/Creatinine Ratio 17 Glucose 81 Calculated Osmolality 255 L Calcium 9.0 Total Bilirubin 0.50 AST 30 ALT 32 Alkaline Phosphatase 56 Troponin I < 0.012 Total Protein 5.7 L Albumin 2.7 L Albumin/Globulin Ratio 0.9 L Plasma Lactate 1.9 Procalcitonin 2.32 H* Other Lab 11/18/16 11/18/16 04:23 04:23 Vitamin B12 > 1000 H TSH 4.69 H 11/24/16 04:03 11/24/16 04:03 - Radiology Radiology: Date of Exam: 11/11/16 PROCEDURE: CHEST 2-VIEWS UPRIGHT (PA & LAT) FINDINGS: The lungs are clear without evidence of focal abnormal airspace opacity. There is no pleural effusion or pneumothorax. The heart size, mediastinal contours and pulmonary vascularity are within normal limits. Exaggerated thoracic adiposis with chronic appearing lower thoracic compression fractures. Epidural spinal stimulator leads in this region as well. Cholecystectomy clips. Scoliosis. IMPRESSION: No acute cardiopulmonary disease. Date of Exam: 11/12/16 PROCEDURE: CT angio pulm emboli Findings: Pulmonary arteries: Exam is diagnostic to the subsegmental pulmonary arterial level. No filling defects identified to suggest a pulmonary embolus. Other findings: Groundglass opacities and septal thickening in the anterior left upper lobe with areas of subpleural scarring bilaterally. Small right and trace left pleural effusions. No pneumothorax. Calcified granuloma in the left upper lobe. The central airways are patent. Patulous esophagus with debris. No axillary or mediastinal lymphadenopathy. Heart size is normal. No pericardial effusion. Impression: 1. No pulmonary embolus. 2. Pleural effusions and left upper lobe airspace opacity that could be due to edema or acute infection/inflammation. 3. Multifocal pulmonary fibrosis and scarring. Date of Exam: 11/14/16 Type of Exam: XR chest 1V Findings: Worsening bilateral airspace consolidation with patchy infiltrates throughout both lungs. Small pleural effusions. No pneumothorax. Heart size and mediastinal contours are grossly stable. Impression: Worsening severe pulmonary edema. Date of Exam: 11/17/16 Type of Exam: XR chest 1V Findings: Life support devices: Dorsal column spinal stimulator device again noted. Lungs and airways: Normal lung volumes. Similar to mildly improved bilateral interstitial and alveolar edema. Pleura: No obvious pleural effusions appreciated by limited frontal only radiography. No pneumothorax. Heart and mediastinum: The cardiomediastinal silhouette and great vessels appear unchanged with redemonstration of cardiomegaly and aortic atherosclerosis. Osseous structures and soft tissues: No acute osseous abnormality is seen. Degenerative changes of the shoulders and thoracic spine. Impression: Similar to mildly improved bilateral interstitial and alveolar edema. Date of Exam: 11/19/16 PROCEDURE: XR chest 1V Findings: Pulmonary edema continues to improve with a mild amount remaining. No new areas of consolidation. No pleural effusion or pneumothorax. Heart size and mediastinal contours are within normal limits. Impression: Continued improvement in pulmonary edema. History of Present Illness HPI: Kait Azul is a very pleasant 76-year-old female resident at [facility] who presented to [facility] emergency department via EMS today, 11/11/16, for evaluation of decreased level of consciousness, increased confusion and fever. Her daughter, Oralia, is present on exam and contributes to the history. Kait reports that yesterday, 11/10/16 she started to feel flushed and this morning she just "couldn't wake up". Family reports that she was lethargic this morning with some confusion and apparent difficulty concentrating. Upon arrival to the ED, blood pressure per EMS was noted to be low at 94/55. She was also noted to be febrile with a temperature of 101.3. Labs were obtained and revealed leukocytosis with WBC 16.1 with 79% neutrophils and 10% bands, anemia with hemoglobin 10.9 and platelets 179. She has a history of chronic anemia. CMP revealed hyponatremia with sodium at 131, potassium 3.7, BUN 20, SCr 1.2 and glucose 81. No prior records are available to compare renal function, though she reports history of chronic renal disease. Troponin was negative at <0.012. Lactate was 1.9 and procalcitonin was elevated at 2.32. Blood cultures were obtained and results pending. UA revealed + nitrite with 50 -200 WBC and 3+ bacteria. She was given 1L NS with light improvement in her blood pressure and significant improvement in her mentation. Due to her apparent sepsis secondary to UTI as indicated by her leukocytosis, bandemia and febrile process, Dr. Anderson was contacted and she was admitted into inpatient status for further evaluation, close monitoring for deterioration, IV antibiotics and IV fluid resuscitation. Her length of stay is expected to be greater than 2 over nights. She is seen immediately upon her arrival to her room, with her daughter, Oralia, at the bed side. Oralia reports that the patient looks and is acting significantly better since her presentation to the ED. Kait reports her only complaint is pain to her left inner, posterior thigh/groin secondary to an ulceration that she reports is secondary to her chronic shingles. She denies any known fevers, but admits to feeling flushed yesterday. No chill, headache, change in vision, chest pain, shortness of breath, cough, congestion, nausea, vomiting, chest pain or dysuria. For complete details of the H&P refer to that document. Objective Vital signs: Temperature 97.8 F 11/24/16 07:17 Pulse Rate 87 11/24/16 07:17 Respiratory Rate 18 11/24/16 08:32 Blood Pressure 113/72 11/24/16 07:17 Pulse Oximetry 99 11/24/16 08:32 Height/Weight/BMI: Height 1.6 m Weight 82.4 kg Body Mass Index 32.4 Hospital Course This is a general summary of the patient's hospital course. For more details refer to the complete medical record. Hospital course: 11/11/16 (Admission) Assessment Sepsis secondary to UTI, present on admission, acute. Hypotension Altered mental status with increased confusion and lethargy, present on admission, acute. Hyponatremia, present on admission, acute. Hypertension, chronic. COPD, chronic. Hypercholesterolemia, chronic. GERD, chronic. Chronic back pain. Chronic kidney disease, stage III. Obesity, chronic. History of shingles. Depression, chronic. Plan Admit to inpatient status under the care of Dr. Anderson. Patient noted to meet sepsis criteria upon admission as indicated by fever ( 101.4), leukocytosis (WBC 16.1), bandemia (10%) and concern for altered mental status and increased confusion. UA confirmed UTI with + nitrite, 50-200 WBC and 3+ bacteria. UA and blood cultures pending. Rocephin 1g IV given in ED. Will continue Rocephin 1g daily for empiric antimicrobial coverage of suspected urinary pathogens. Tylenol as needed pain and fever control. Lactate 1.9 in ED. Will recheck at 2100. Procalcitonin elevated at 2.32. Patient was given 1L NS in ED. Hyponatremia noted on admission with sodium 131. Will continue NS at 125cc/hr for fluid resuscitation. Monitor closely for signs of fluid overload and daily weight. Initial blood pressure in ED was noted to be borderline low at 94/55. Improved with fluid resuscitation. Continue to monitor blood pressure closely and will monitor cardiac function closely on telemetry. Troponin in ED was negative at < 0.012. In light of low blood pressure, will hold home blood pressure medications including Norvasc 5mg, Losartan/HCTZ 50/12.5 and metoprolol XL. Continue home Prilosec for GERD and GI protection. SCDs for DVT prophylaxis. CXR in ED showed no acute cardiopulmonary abnormalities. Continue home inhalers and monitor respiratory function closely. Encourage incentive spirometry for pulmonary toileting. Anemia noted on admission with hemoglobin 10.9. History of chronic anemia. Monitor blood counts closely and continue home B12. Unable to reconcile medications in computer as current medication list has not been verified. Will try and obtain current medication list from [facility]. Upon discharge, patient's care will be returned to her PCP, Dr. Wheatley. 11/12/16 Patient transfer to CCU overnight due to low BP. IVF bolus given. BC positive for E coli - c/s pending. Will check CTA due to increased dyspnea and low BP to exclude PE. Continue Rocephin for antimicrobial support. IVF of NS at 125 for hydration. Start routine Miralax and Senna Plus due to significant constipation. PRN MOM and Dulcolax available. Continue to hold antihypertensives as BP low. Did decrease IVF to 75cc/hr and gave Lasix as breathing more short. Initialed neb treatments. 11/13/16 WBC decreased to 10.9. HBG stable at 10.1. Potassium 3.3 with Mg 1.4. Creatinine 0.8. BC showing pansensitive Ecoli. Will change Rocephin to Ampicillin 1 gram IV q 6 hours for coverage. Decrease IVF to 50cc/hr. Replace potassium and magnesium. Mucinex DM BID to help decrease cough and congestion. Ricola prn cough. Acapella to help loosen secretions. CT showed no PE. Will check Echo due to low BP-? effusion. BP improving but still low at times. Continue to hold antihypertensives. Started BB due to tachycardia. 11/14/16 Continue Ampicillin for antimicrobial coverage Will stop IVF-concern for volume overload. Lasix 20mg IV x1 and monitor. Echo with hyperdynamic EF of 72% and pulmonary HTN. Wean O2-encourage breathing to help saturations. Continue neb treatments and Mucinex. 11/15/16 Still somnolent. Blood pressure with persistent elevation. Weight up. Start Lasix 40mg IV q8 hours to help motivate fluid. Increase Potassium to 20 mEq TIDWM due to Lasix use. Diamox 500mg po x1 to decrease potential or alkalosis. Hold on restarting outpatient BP medications until patient better diuresed. BiPAP as needed to help minimize respiratory fatigue. Solu-Medrol started by telehospitalist. Will stop and not appreciating wheezing. ABG with normal CO2 - encourage deep breathing and BiPAP to help maintain ventilation. Decrease Baclofen to 5mg TID due to somnolence. Continue ampicillin for antimicrobial coverage. Recheck BMP in am due to diuretics. CBC in am due to sepsis and leukocytosis. 11/16/16 Urine output increase and weight/edema decreasing with Lasix. Creatinine stable at 0.8. Will continue Lasix 40mg IV q 8 hours. Diamox 500mg this morning and evening. Additional oral potassium and magnesium due to decrease. Recheck CXR in am to evaluate pulmonary edema. Nursing to continue to wean O2 - acceptable to have saturations in mid 90s. Continue ampicillin for coverage. Work with bowel function (chronically constipated and has to disimpact self at home). Increase Senna Plus to BID. Encourage rectal Dulcolax. PRN Fleets. 11/17/16 Diuresed well with Lasix/Diamox yesterday. Weight down 4 kg. Continue Lasix, reassess in a.m. Oxygenation improving with diuresis. Wean as saturation permits. Continue ampicillin for coverage. Convert to amoxicillin when consistently taking oral medications well to complete 2 weeks therapy. Leukocytosis normalizing. Work with bowel function (chronically constipated and has to disimpact self at home). Disimpact at this morning. Increase MiraLAX to BID; Senna Plus BID. Encourage rectal Dulcolax. PRN Fleets. Macrocytic anemia, present on admission-check B-12/TSH Hyponatremia has resolved, blood pressure stable. 11/18/16 Diuresed well with Lasix or Lasix/Diamox the past 2 days. Weight down but BUN/ creatinine up slightly today. Continue Lasix at 40 mg daily instead of every 8 hours and monitor renal function/oxygen demand. Oxygenation improving with diuresis. Wean as saturation permits. Currently on 2 L-does not appear to have been on oxygen prior to admission. Continue ampicillin for coverage of Escherichia coli. Convert to amoxicillin when consistently taking oral medications well to complete 2 weeks therapy. Day 8 antibiotics (ceftriaxone 11/11-11/13, ampicillin 11/13-present) Leukocytosis improved. Continue bowel regimen-disimpacted yesterday. Macrocytic anemia, present on admission-check B-12/TSH Hyponatremia has resolved, blood pressure stable. Stable for transfer out of ICU. PT/OT consulted. 11/19/16 - Continue with ampicillin for Ecoli bacteremia (Day #9). Will stop Lasix - weight at baseline. Monitor volume status off diuretics. Wean O2 as able - patient uses O2 when sleeping. PT/OT to help improve functional status - very debilitated due to her acute illness. 11/20/16- Continue with ampicillin for Ecoli bacteremia (Day #10). Will have speech therapy reevaluate patient's swallow tomorrow morning as she is hopeful to get rid of thickened liquids and crushed pills. We did discuss in great detail with both patient and family that when patients have severe illness and weakness off and swallow does become more weak, causing increased risk of aspiration. 11/21/16- Continue Ampicillin(day 11) for antimicrobial coverage of E-coli bacteremia. Work on weaning down oxygen. Continue to encourage work with PT/OT for strengthening. Prior to hospitalization patient resides independently at [facility]. Discussed possibility of skilled or IRU once medically stable prior to discharge home independently. 11/22/16 - Continue Ampicillin (11/13) for bacteremia PT/OT assessment yesterday - she required total assist and was unable to safely stand up. Her nurse also voiced significant safety concerns - she was barely able to stand with assist of 2 - once she landed back in bed and the other time her legs twisted up as she transferred. We may need to look into skilled therapy or IRU prior to going home. Chronic back pain - will try to contact Dr. Rebolledo's office on Thursday. She states that her pain pump is out of medication. Baclofen was cut back to 5 mg because of mental status changes, but we may be able to increase this back to 10 mg. Restart diclofenac. Weaned off oxygen today. BP stable on metoprolol - not elevated enough to warrant resuming amlodipine or Hyzaar. Hgb decreased to 9.3 from 11.8 on admission. Check stool for occult blood and check iron studies. Diarrhea - start Culturelle. Discussed with RN - she's had loose stools today but wouldn't classify them as diarrhea. If she develops diarrhea, recommended for her to check C. difficile. 11/23/16 She is slowly improving. Good humor, joking around- perhaps a bit confused. Continue IV Ampicillin (Day #13). WBC improving. Afebrile. She has thickened liquids at bedside and seems to be following well. Continue to mobilize, encourage activity. Will likely need PT/OT following medical stabilization. 11/24/16 Continue with Ampicillin - course nearly completed. WBC normalized. Blood pressure stable with Toprol XL 50mg daily. Diet advance by speech - ground meat diet with regular liquids. Nystatin to areas of tinea in groin. Declined by IRU. Arrangements made for discharge to skilled care at [place]. F/U with Dr Solis in 1 week. See orders for details. DVT Prophylaxis: SCD's, Lovenox Discharge Plan - Med Rec/Dispo Referrals/Follow Up: Honorio Solis MD [Family Provider] - 1 Week (Hospital follow up for Ecoli sepsis ) Junior Instructions: Sepsis (GEN), Urinary Traction Infection in Older Adults ( GEN) Prescriptions: New Acidoph/L.bulg/Bif.b/S.thermop [Bacid Caplet] 1 cap PO TIDWM tablet Albuterol/Ipratropium [Duoneb] 3 ml AEROSOL Q4H PRN neb PRN Reason: Shortness Of Air Amoxicillin 500 mg PO TID #4 cap Milk of Magnesia [Mom] 30 ml PO DAILY PRN udc PRN Reason: Constipation PEG 3350 17gm PACKET [Miralax] 17 gm PO DAILY PRN packet PRN Reason: Constipation Senna + Docusate [Senna Plus Tablet] 1 tab PO BID PRN tablet PRN Reason: Constipation Sodium Chloride [Deep Sea] 2 spray EA NOSTRIL QID spray Bisacodyl Supp [Dulcolax] 10 mg RECTALLY DAILY PRN supp PRN Reason: Constipation Nystatin Powder [Mycostatin] 1 applic TP TID #1 bottle Continue Albuterol HFA Inhaler [Ventolin Hfa 90 mcg/actuation] 2 puff INH QID PRN PRN Reason: Wheezing Baclofen [Lioresal] 10 mg PO TID Calcium 500 + D [Os Cheko-D 500] 1 tab PO DAILY Colesevelam [Welchol] 1,250 mg PO BID Desipramine HCl 50 mg PO BID Diclofenac Potassium 50 mg PO BID Divalproex ER [Depakote ER] 1,000 mg PO BID Fluticasone [Flovent Diskus 50 mcg] 1 spray EA NOSTRIL DAILY Magnesium Oxide [Magnesium] 500 mg PO DAILY Metoprolol Succinate (XL) [Toprol Xl] 50 mg PO DAILY Multi-Vitamin Plain [Theragran] 1 tab PO DAILY Nystatin/Triamcinolone CR [MYCOLOG ii] 15 applic TP BID Olopatadine 0.1% Eye Drops-Bid [Patanol] 1 drop EACH EYE BID Oxybutynin Chloride 5 mg PO BID Venlafaxine HCl [Venlafaxine HCl ER] 150 mg PO DAILY Hydrocodone/Acetaminophen [Hydrocodon-Acetaminophen 5-325] 1 tab PO Q6HR PRN #30 tab PRN Reason: Pain Acyclovir 400 mg PO BID Atorvastatin [Lipitor] 1 tab PO DAILY Cyanocobalamin (Vitamin B-12) [Vitamin B-12] 1,000 mcg PO DAILY Methylcellulose (with Sugar) [Fiber Therapy Powder] 2 packet PO DAILY Omeprazole [Prilosec] 20 mg PO ACB Discontinued Amlodipine [Norvasc] 5 mg PO DAILY Losartan/Hctz 50/12.5 [Hyzaar 50/12.5] 1 tab PO DAILY Potassium 99 mg PO DAILY Zolpidem [Ambien] 10 mg PO HS Discharge Instructions/Outpatient Orders: Provider Discharge Instructions Location: Determined By Patient - Disposition [facility] (SNF) - Attestation Attestation Narrative: 11/24/16 14:28 I have independently interviewed and examined patient prior to discharge. See my progress note from today for details. Medically stable for discharge to nursing home.
--- NOTE | 2016-11-24 14:33 | Extended Care Facility Orders ---
Admission Orders Admit to:: [facility] Allergies/Adverse Reactions: Allergies gabapentin Allergy (Unknown, Verified 11/11/16 15:11) pregabalin [From Lyrica] Allergy (Unknown, Verified 11/11/16 15:10) latex Allergy (Verified 11/11/16 15:12) Admitting Diagnosis: sepsis secondary to Uti Admitting Physician: Irvin Anderson MD Attending Physician: Dr Solis Code Status: Full Code Anticiapted Length of Stay: 30 days or less Rehab Potential: fair Rehab Prognosis: fair Diet: Mechanical soft with regular liquids. May use Facility Protocol or Standing Orders: Yes May have flu vaccine: Yes Evaluations/Treatment: PT, OT [facility] Certification: I certify that SNF services are required to be given on an Inpatient basis because of the patients need for custodial care on a continuing basis for the condition(s) for which he/she received inpatient hospital services prior to his/her transfer to the SNF. SNF inpatient care is necessary for the following reasons Indication for [facility]: Other (Skilled PT/OT to maximize functional status ) - Additional Information In Event of Arrest: Start CPR,call 911,send patient to the ER Resident is Aware of Diagnosis: Yes Referrals: Honorio Solis MD [Family Provider] - 1 Week (Hospital follow up for Ecoli sepsis ) Additional Orders: F/U with Dr Solis in 1 week. F/U with Dr. Rebolledo for chronic pain management. Monitor stools - patient chronically constipated prior to admission and would need to manually disimpact herself daily. May continue with pain pump. May use O2 2L at night.
== END 2016-11-24 15:45 | DRG 871 ==
LOC: ED 14:15 → MED 16:10 → SUATTDRO 16:10 → MED 16:55 → CCU 11-12 00:17 → MED 11-18 14:15
PROVIDERS: ADMIT Hospitalist; ATTEND Hospitalist

== ENCOUNTER 2017-09-09 03:10 | Inpatient (IN) ==
[2017-09-09] MEDS ORDERED: SALINE FLUSH 10ml SYRINGE IVF PRN (03:17)
[2017-09-09] MEDS ORDERED: ALBUTEROL/IPRATROPIUM 2.5mg-0.5mg/3ml NEB AEROSOL ONE (03:19)
[2017-09-09] MEDS ORDERED: METHYLPREDNISOLONE SOD SUCC 125mg/2ml INJECTION IVP ONE (03:19)
--- NOTE | 2017-09-09 03:25 | Emergency Department Report ---
Asthma HPI - General Stated Complaint: SOA Time Seen by Provider: 09/09/17 03:16 Source: patient, EMS Mode of arrival: EMS Limitations: no limitations - History of Present Illness HPI Narrative: Patient presents by EMS with a 2-3 day history of mild cough and increased difficulty breathing. Tonight the patient became so short of breath that she activated her medical alarm, and [facility] staff checked on her. She was found in severe respiratory distress and EMS was called. On EMS arrival patient was on her routine 4 L of oxygen, running 75% oxygen saturations. Patient was immediately placed on CPAP, given albuterol treatment in route. Initially patient appeared to be in a new onset atrial fibrillation within rapid rate ventricular rate of 130, however after the treatment and CPAP the patient has begun to relax, heart rate is improving, and her respiratory status is improving as well. O2 saturations were up to 100% on CPAP when the patient arrived. Patient stated that after the treatment and on CPAP she is feeling much better. Patient has a history of COPD and congestive heart failure Tonight the patient was found have an elevated temperature of 100.4 as well as the tachycardia and severe hypoxemia. - Related Data Home Medications Medication Instructions Recorded Confirmed Acyclovir 400 mg PO BID 11/11/16 09/09/17 Albuterol HFA Inhaler [Ventolin 2 puff INH QID PRN 11/11/16 09/09/17 Hfa 90 mcg/actuation] Atorvastatin [Lipitor] 1 tab PO DAILY 11/11/16 09/09/17 Baclofen [Lioresal] 10 mg PO TID 11/11/16 09/09/17 Calcium 500 + D [Os Cheko-D 500] 1 tab PO DAILY 11/11/16 09/09/17 Colesevelam [Welchol] 1,250 mg PO BID 11/11/16 09/09/17 Cyanocobalamin (Vitamin B-12) 1,000 mcg PO DAILY 11/11/16 09/09/17 [Vitamin B-12] Desipramine HCl 50 mg PO BID 11/11/16 09/09/17 Diclofenac Potassium 50 mg PO BID 11/11/16 09/09/17 Divalproex ER [Depakote ER] 1,000 mg PO BID 11/11/16 09/09/17 Fluticasone [Flovent Diskus 50 mcg] 1 spray EA NOSTRIL DAILY 11/11/16 09/09/17 Magnesium Oxide [Magnesium] 500 mg PO DAILY 11/11/16 09/09/17 Methylcellulose (with Sugar) 2 packet PO DAILY 11/11/16 09/09/17 [Fiber Therapy Powder] Metoprolol Succinate (XL) [Toprol 50 mg PO DAILY 11/11/16 09/09/17 Xl] Multi-Vitamin Plain [Theragran] 1 tab PO DAILY 11/11/16 09/09/17 Nystatin/Triamcinolone CR [MYCOLOG 15 applicatio TP BID 11/11/16 09/09/17 ii] Olopatadine 0.1% Eye Drops-Bid 1 drop EACH EYE BID 11/11/16 09/09/17 [Patanol] Omeprazole [Prilosec] 20 mg PO ACB 11/11/16 09/09/17 Oxybutynin Chloride 5 mg PO BID 11/11/16 09/09/17 Venlafaxine HCl [Venlafaxine HCl 150 mg PO DAILY 11/11/16 09/09/17 ER] Fluticasone Nasal [place] [Flonase] 0 spray IN PRN 09/09/17 09/09/17 Guaifenesin/Dextromethorphan 5 ml PO PRN 09/09/17 09/09/17 [Guaifenesin Dm Syrup] Saliva Substitute Mouth [place] 44.3 ml MM PRN 09/09/17 09/09/17 [Biotene Moisturizing Mouth [place]] Previous Rx's Medication Instructions Recorded Acidoph/L.bulg/Bif.b/S.thermop 1 cap PO TIDWM tab 11/24/16 [Bacid Caplet] Albuterol/Ipratropium [Duoneb] 3 ml AEROSOL Q4H PRN each 11/24/16 Bisacodyl Supp [Dulcolax] 10 mg RECTALLY DAILY PRN 11/24/16 suppositor Hydrocodone/Acetaminophen 1 tab PO Q6HR PRN #30 tab 11/24/16 [Hydrocodon-Acetaminophen 5-325] Milk of Magnesia [Mom] 30 ml PO DAILY PRN udc 11/24/16 Nystatin Powder [Mycostatin] 1 applicatio TP TID #1 bottle 11/24/16 PEG 3350 17gm PACKET [Miralax] 17 gm PO DAILY PRN packet 11/24/16 Senna + Docusate [Senna Plus 1 tab PO BID PRN tab 11/24/16 Tablet] Sodium Chloride [Deep Sea] 2 spray EA NOSTRIL QID spray 11/24/16 Allergies Allergy/AdvReac Type Severity Reaction Status Date / Time gabapentin Allergy Unknown Verified 09/09/17 03:49 pregabalin [From Lyrica] Allergy Unknown Verified 09/09/17 03:49 furosemide [From Lasix] Allergy Verified 09/09/17 03:49 latex Allergy Verified 09/09/17 03:49 Review of Systems All systems: reviewed and negative except as stated PFSH Patient Stated Medical History Cerebrovascular Accident Yes Cataracts Yes Congestive Heart Failure Yes Hypertension Yes Hypotension Yes Chronic Obstructive Pulmonary Yes Disease (COPD) Pneumonia Yes Gastroesophageal Reflux Yes Disease Hx Incontinence Yes Hx Renal Disease Yes: CKD 4 Hx Urinary Tract Infection Yes Anemia Yes Shingles Yes Other Yes: left side lumpectomy. Depression Yes: MDD COPD CHF Hypertension Surgical History: Nerve stimulator to back-2014,2013,2007. Cataract implant x 2 -2006. Cholecystectomy-2006. Lumpectomy-left breast, breast cancer-2001. Hernia repair-2001. Bilateral chest tube with tracheotomy due to severe pneumonia-1989. Hysterctomy-1971. Bilateral tubal ligation-1970. Tonsillectomy-1945. Family History Updates: Mother - age 70, unknown cancer. Father - age 68, diabetes. - Social History Smoking status: Former smoker Substance use type: does not use Alcohol intake frequency: does not drink Household members: none Current occupational status: retired Current residence: Apartment/Private Home Physical Exam - Limitations Limitations: no limitations - General General appearance: alert, in distress (obvious respiratory distress) - Normal Exams: Head:: Normocephalic without trauma Eyes:: Pupils are PERRLA w/ EOMI, No scleral icterus, irritation, or foreign bodies noted ENMT:: No facial trauma, nasal exudates, pharyngeal erythema, or exudates are noted Neck:: Full range of motion, without adenopathy, JVD, bruits or thyromegaly Abdomen:: Bowel sounds positive, soft, non-tender, non-distended, no hepatosplenomegaly, masses or bruits noted Lymphatic:: No lymphadenopathy, or lymphedema noted Musculoskeletal:: No tenderness, or deformity noted, good range of motion, all extremities Integumentary:: No rashes, hives, or bruising noted, hair and nails, without abnormality Neurological:: Patient is alert, and oriented, cranial nerves, motor/sensory/ cerebellar, exams w/o gross deficits, to observation - Chest Chest inspection: Present: normal inspection, symmetric chest wall rise. Absent : tenderness - Respiratory Respiratory exam: Present: respiratory distress, wheezes, accessory muscle use, prolonged expiratory phase. Absent: normal lung sounds bilaterally (course tight wheezes bilaterally, poor air movement with prolonged expiratory phase) - Cardiovascular Cardiovascular exam: Present: normal rhythm, tachycardia, normal heart sounds Course Vital Signs Temperature 99 F 09/09/17 03:10 Pulse Rate 113 H 09/09/17 03:10 Respiratory Rate 28 H 09/09/17 03:10 Blood Pressure 169/94 H 09/09/17 03:10 Pulse Oximetry 99 09/09/17 03:10 Temperature 99 F 09/09/17 03:10 Pulse Rate 113 H 09/09/17 04:15 Respiratory Rate 31 H 09/09/17 04:15 Blood Pressure 125/82 09/09/17 04:15 Pulse Oximetry 95 09/09/17 04:15 Dyspnea - MDM Narrative Medical decision making narrative: Patient is given Solu-Medrol 125 mg IV, and 2 DuoNeb was while being placed on BiPAP in the ER CXR - significant diffuse infiltrative pattern consistent with pulmonary edema versus scattered consolidations of pneumonia. Bases are greatly thickened consistent with atelectasis versus multilobar pneumonia. This may also represent a viral pneumonia. CBC - decreased white blood cell count at 2.6 CMP - essentially normal EKG - sinus tachycardia with significant artifact, no signs of acute ischemia, however interpretation is limited ProBNP - minimally elevated at 600, better than prior ABG - mild abnormalities consistent with acute hypoxemic respiratory failure, improving on CPAP/BiPAP Lactate - elevated 3.4 Patient is started on triple antibiotic regimen cefepime and levofloxacin and vancomycin, and as the picture likely represents sepsis from pneumonia rather than congestive heart failure with pulmonary edema, 1 L normal saline IV fluid bolus is begun. Patient's tachycardia has improved with her ease of breathing after multiple DuoNeb and Solu-Medrol and BiPAP, blood pressure has remained stable at 124/69, O2 saturations are 97%, and patient is able to be weaned down to 60% FiO2. Discussed with Dr. Kareem Marie - admit inpatient CCU for sepsis with pneumonia and respiratory failure - Lab Data Result diagrams: 09/09/17 03:24 09/09/17 03:24 Lab Results 09/09/17 09/09/17 09/09/17 Range/Units 03:24 03:24 03:49 WBC 2.6 L (4.5-11.0) T/MM3 RBC 3.85 L (4.00-5.20) M/MM3 Hgb 12.9 (12-16) GM/DL Hct 40.0 (36-46) % MCV 103.9 H (80-100) UM3 MCH 33.5 (26-34) UUG MCHC 32.3 (31-37) GM/DL RDW Std Deviation 59.3 H (36.9-50.2) FL Plt Count 229 (130-400) T/MM3 MPV 9.9 (9.4-12.4) UM3 Immature Gran % (Auto) 0.4 (0.0-0.5) % Neut % (Auto) 58.6 (33-66) % Lymph % (Auto) 32.0 (23-45) % Door % (Auto) 7.8 (0-9.0) % Eos % (Auto) 1.2 (0-4) % Baso % (Auto) 0.0 (0-2) % Neut # (Auto) 1.5 L (1.8-7.7) T/MM3 Lymph # (Auto) 0.8 L (1-4.8) T/MM3 Door # (Auto) 0.2 (0-0.8) T/MM3 Eos # (Auto) 0.0 (0-0.5) T/MM3 Baso # (Auto) 0.0 (0-0.2) T/MM3 Abs Immat Gran (auto) 0.01 (0.00-0.03) T/MM3 Sample Site R radial Alveolar Air PO2 327.2 (4.0-801.0) mmHg ABG pH 7.410 (7.350-7.450) ABG pCO2 44 (34.0-45.0) MMHG ABG pO2 77.0 L (80.0-100.0) MMHG ABG HCO3 27.7 H (22.0-26.0) MEQ/L ABG Total CO2 29.1 H (23.0-27.0) MEQ/L ABG O2 Saturation 95.3 (95.0-98.0) % ABG Base Excess 2.6 H (-2.0-2.0) MMOL/L Modified Power Test Positive A-a Gradient 250.2 (0.0-801.0) mmHg a/A Ratio 23.5 (-1.0-101.0) % O2 Delivery Method Bipap Vent Rate 28 FiO2 55 % PEEP 8 Inspiratory Pressure 18 Pressure Support 10 Turbidity < 20 (0-20) Sodium 137 (136-146) MEQ/L Potassium 4.2 (3.6-5) MEQ/L Chloride 99 (98-107) MEQ/L Carbon Dioxide 28 (22-30) MEQ/L Anion Gap 10 (5-15) meq/L BUN 10.0 (7-17) MG/DL Creatinine 0.6 L (0.7-1.2) mg/dL Estimated Creat Clear Not performed GFR Calculation 98 (>60) mL/min BUN/Creatinine Ratio 17 (6-26) RATIO Glucose 92 (65-110) MG/DL Calculated Osmolality 263 (261-280) MOSM/KG Calcium 9.3 (8.4-10.2) MG/DL Total Bilirubin 0.40 (0.20-1.30) MG/DL Conjugated Bilirubin 0.00 (0.00-0.30) mg/dL Unconjugated Bilirubin 0.50 (0.00-1.1) mg/dL Icterus Index < 2 (0-7) AST 26 (14-36) U/L ALT 9 (1-35) U/L Alkaline Phosphatase 73 (38-126) U/L NT-Pro-B Natriuret Pep 605 H (0-175) pg/mL Total Protein 7.5 (6.3-8.2) g/dL Albumin 3.7 (3.5-5.0) g/dL Globulin 3.8 H (2.4-3.6) G/DL Albumin/Globulin Ratio 1.0 L (1.1-2.2) RATIO Plasma Lactate 3.4 H (0.6-2.2) MMOL/L Specimen Hemolysis 19 (0-25) Critical Care Time Critical Care Time: Yes Total Critical Care Time: 65 Attestation: Patient was in casandra respiratory failure on arrival, required extensive and aggressive intervention and diagnostics for sepsis with pneumonia, tachycardia, severe hypoxemia Disposition Clinical Impression: Severe sepsis Pneumonia Qualifiers: Pneumonia type: due to unspecified organism Laterality: bilateral Lung location : lower lobe of lung Qualified Code(s): J18.1 - Lobar pneumonia, unspecified organism Disposition: [address] [facility] [place] Condition: Improved Prescriptions: No Action Albuterol HFA Inhaler [Ventolin Hfa 90 mcg/actuation] 2 puff INH QID PRN PRN Reason: Wheezing Baclofen [Lioresal] 10 mg PO TID Calcium 500 + D [Os Cheko-D 500] 1 tab PO DAILY Colesevelam [Welchol] 1,250 mg PO BID Desipramine HCl 50 mg PO BID Diclofenac Potassium 50 mg PO BID Divalproex ER [Depakote ER] 1,000 mg PO BID Fluticasone [Flovent Diskus 50 mcg] 1 spray EA NOSTRIL DAILY Magnesium Oxide [Magnesium] 500 mg PO DAILY Metoprolol Succinate (XL) [Toprol Xl] 50 mg PO DAILY Multi-Vitamin Plain [Theragran] 1 tab PO DAILY Nystatin/Triamcinolone CR [MYCOLOG ii] 15 applicatio TP BID Olopatadine 0.1% Eye Drops-Bid [Patanol] 1 drop EACH EYE BID Oxybutynin Chloride 5 mg PO BID Venlafaxine HCl [Venlafaxine HCl ER] 150 mg PO DAILY Acidoph/L.bulg/Bif.b/S.thermop [Bacid Caplet] 1 cap PO TIDWM tab Albuterol/Ipratropium [Duoneb] 3 ml AEROSOL Q4H PRN each PRN Reason: Shortness Of Air Hydrocodone/Acetaminophen [Hydrocodon-Acetaminophen 5-325] 1 tab PO Q6HR PRN #30 tab PRN Reason: Pain Milk of Magnesia [Mom] 30 ml PO DAILY PRN udc PRN Reason: Constipation PEG 3350 17gm PACKET [Miralax] 17 gm PO DAILY PRN packet PRN Reason: Constipation Senna + Docusate [Senna Plus Tablet] 1 tab PO BID PRN tab PRN Reason: Constipation Sodium Chloride [Deep Sea] 2 spray EA NOSTRIL QID spray Fluticasone Nasal [place] [Flonase] 0 spray IN PRN Saliva Substitute Mouth [place] [Biotene Moisturizing Mouth [place]] 44.3 ml MM PRN Acyclovir 400 mg PO BID Atorvastatin [Lipitor] 1 tab PO DAILY Cyanocobalamin (Vitamin B-12) [Vitamin B-12] 1,000 mcg PO DAILY Methylcellulose (with Sugar) [Fiber Therapy Powder] 2 packet PO DAILY Omeprazole [Prilosec] 20 mg PO ACB Bisacodyl Supp [Dulcolax] 10 mg RECTALLY DAILY PRN suppositor PRN Reason: Constipation Nystatin Powder [Mycostatin] 1 applicatio TP TID #1 bottle Guaifenesin/Dextromethorphan [Guaifenesin Dm Syrup] 5 ml PO PRN Referrals: Jocelyn Holt MD [Primary Care Provider] - - Seen By: physician
--- OUTSIDE RECORDS SUMMARY | 2017-09-09 03:29 | External Medical Summary | Clinical Summary ---
:1940 Author Organization [facility] Address [address] [address] Care Team Providers Name Role Phone Unavailable Primary Care Provider Unavailable Allergies Active Allergy Reactions Severity Noted Date Comments Adhesive Tape Epinephrine Dental Epinepherine Lidocaine LIDOCAINE Trimethoprim SULFA SULFA Current Medications Prescription Sig. Disp. Refills Start Date End Date Status nitroglycerin 1 under your tongue 0 0 05/23/2008 Active (NITROSTAT) 0.4 MG SL every 5 minutes for tablet chest pain (max 3 doses) diclofenac (VOLTAREN) One orally three 0 0 07/30/2012 Active 50 MG EC tablet times daily primidone (MYSOLINE) 50 Two orally three 0 0 07/30/2012 Active MG tablet times daily albuterol (PROAIR HFA) Two puffs four times 0 0 07/30/2012 Active 108 (90 BASE) MCG/ACT daily as needed for inhaler shortness of breath metoprolol succinate One orally daily 0 0 05/23/2008 Active (TOPROL-XL) 50 MG 24 hr tablet hydrocodone-acetaminoph One orally every 4-6 0 0 05/23/2008 Active en (NORCO) 7.5-325 MG hours as needed for back pain . Directed by pcp. morphine, PF, intrathecal : Has a 0 0 05/23/2008 Active (DURAMORPH) 0.5 MG/ML morphine pain pump , injection managed by Dr Barbosa . For multilevel degenerative disc disease . rOPINIRole (REQUIP) 1 Two orally at bedtime 0 0 07/30/2012 Active MG tablet darifenacin (ENABLEX) One orally daily 0 0 07/30/2012 Active 15 MG 24 hr tablet baclofen (LIORESAL) 20 One orally four times 0 0 07/30/2012 Active MG tablet daily mupirocin (BACTROBAN) 2 Apply to affected 0 0 07/30/2012 Active % ointment area as needed As directed by pcp amLODIPine (NORVASC) 10 One orally daily 0 0 05/23/2008 Active MG tablet atorvastatin (LIPITOR) One orally at bedtime 0 0 05/23/2008 Active 40 MG tablet divalproex (DEPAKOTE) Two orally twice 0 0 07/30/2012 Active 500 MG EC tablet daily fluticasone (FLONASE) Two puffs in each 1 3 07/30/2012 Active 50 MCG/ACT nasal spray nostril twice daily esomeprazole (NEXIUM) One orally twice 0 0 07/30/2012 Active 40 MG capsule daily amitriptyline (ELAVIL) Two orally at bedtime 0 0 07/30/2012 Active 100 MG tablet anastrozole (ARIMIDEX) One orally daily in 0 0 07/30/2012 Active 1 MG tablet AM losartan-hydrochlorothi One orally daily 0 0 05/23/2008 Active azide (HYZAAR) 50-12.5 MG per tablet venlafaxine (EFFEXOR One orally twice 0 0 07/30/2012 Active XR) 150 MG 24 hr daily capsule .reconcile (MEDICATION No Sig 1 0 07/30/2012 Active LIST IMPORTED) Active Problems Problem Noted Date Chest pain, unspecified Unspecified essential hypertension Immunizations Name Dates Previously Given Next Due Influenza IIV3 PFree 12/14/2007 Pneumococcal Polysaccharide (23-valent) 12/11/2004 Social History Tobacco Use Types Packs/Day Years Used Date Former Smoker Comments: Quit smoking: Year stopped /Number of yrs: /Packs per day: /Pack years: Sex Assigned at Date Recorded Not on file Last Filed Vital Signs Vital Sign Reading Time Taken Blood Pressure 128/78 07/17/2014 12:01 AM CDT Pulse - - Temperature - - Respiratory Rate - - Oxygen Saturation - - Inhaled Oxygen Concentration - - Weight 91.2 kg (201 lb) 07/17/2014 12:01 AM CDT Height 160 cm (5' 3") 07/17/2014 12:01 AM CDT Body Mass Index 35.61 07/17/2014 12:01 AM CDT Plan of Treatment Health Maintenance Due Date Last Done Comments DTaP,Tdap,and Td Vaccines (1 - Tdap) 1961 Colon Cancer Screening 1992 Zoster Recombinant Vaccine (RZV,Shingrix) (1 of 2 - 1992 [facility] 2 Dose Standard) Pneumo-Adult (1 of 2 - PCV13) 10/31/2007 12/11/2004 Breast Cancer Screening-Mammogram 11/26/2012 11/27/2011 Influenza Vaccine (#1) 2017 12/14/2007 Results Not on filefrom Last 3 Months
--- OUTSIDE RECORDS SUMMARY | 2017-09-09 03:30 | External Medical Summary | Referral Summary ---
:1940 Author Organization [facility] [address] [place] [address] Care Team Providers Name Role Phone Honorio Solis Primary Care Physician Encounter [facility] [phone] Date(s): 09/29/16 - 09/29/16 [facility] [address] [place] [phone] [place] Discharge Diagnosis: Decreased transfer ability Discharge Diagnosis: Chronic back pain Discharge Diagnosis: Wheelchair dependent Discharge Diagnosis: Cerebrovascular accident (CVA) Discharge Diagnosis: Generalized weakness Discharge Disposition: 01-Home or Self Care Attending Physician: Shannon Proctor PA-C Admitting Physician: Shannon Proctor PA-C Vital Signs Most recent to oldest [Reference Range]: 1 Temperature Tympanic [36.6-38.1 degC] 36.8 degC (09/29/16 1:17 PM) Peripheral Pulse Rate [60-100 bpm] 68 bpm (09/29/16 1:17 PM) Blood Pressure [90-140/60-90 mmHg] 124/62 mmHg (09/29/16 1:17 PM) Problem List Condition Effective Dates Status Health Status Informant Benign essential Active hypertension(Confirmed) Chronic back pain(Confirmed) Active Cerebrovascular accident Active (CVA)(Confirmed) Essential tremor(Confirmed) Active GERD without esophagitis(Confirmed) Active Hx of subdural hematoma(Confirmed) Active S/p cholecystectomy(Confirmed) Active OAB (overactive bladder)(Confirmed) Active Hyperlipidemia(Confirmed) Active Breast cancer(Confirmed) Active Chronic bipolar disorder(Confirmed) Active COPD, moderate(Confirmed) Active Obesity(Confirmed) Active patient Chronic insomnia(Confirmed) Active Chronic right shoulder pain(Confirmed) Active Wheelchair dependent(Confirmed) Active Allergies, Adverse Reactions, Alerts Substance Reaction Severity Status Adhesive Bandage "keeps my skin from healing" Active Scar gabapentin loss of muscle control Active Lactose Intolerance Diarrhea Active Lasix Hypokalaemia Mild Active Latex "keeps my skin from healing" Active Lyrica Loses muscle control Active sulfamethoxazole Nausea vomiting and diarrhea Active 24-JUN-2016 16:40:39<$> Medications acyclovir 400 mg oral tablet See Instructions, TAKE 1 TABLET BY MOUTH TWICE DAILY, # 60 tabs, 0 Refill(s), Pharmacy: [facility] #[id number], TAKE 1 TABLET BY MOUTH TWICE DAILY Start Date: 08/15/16 Status: OrderedamLODIPine 5 mg oral tablet See Instructions, TAKE 1 TABLET BY MOUTH DAILY, # 90 tabs, [facility] [place] [id number] Start Date: 09/01/16 Status: Orderedatorvastatin 10 mg oral tablet See Instructions, TAKE 1 TABLET BY MOUTH DAILY, # 90 tabs, [facility] [place] [facility] [id number], TAKE 1 TABLET BY MOUTH DAILY Start Date: 09/01/16 Status: Orderedbaclofen 10 mg oral tablet 10 mg 1 tabs, Oral, TID, # 270 tabs, 0 Refill(s), Pharmacy: [facility] # [id number], 1 tabs Oral TID Start Date: 08/15/16 Status: OrderedCalcium 500+D 2 tabs, Oral, Daily, 0 Refill(s) Start Date: 12/25/15 Status: Ordereddesipramine 50 mg oral tablet See Instructions, TAKE 1 TABLET BY MOUTH TWICE DAILY, # 180 tabs, [facility] [id number] Start Date: 09/01/16 Status: Ordereddiclofenac sodium 50 mg oral delayed release tablet See Instructions, TAKE 1 TABLET BY MOUTH TWICE DAILY, # 180 tabs, 0 Refill(s), Pharmacy: [facility] #[id number], TAKE 1 TABLET BY MOUTH TWICE DAILY Start Date: 08/15/16 Status: Ordereddivalproex sodium 500 mg oral tablet, extended release See Instructions, TAKE 2 TABLETS BY MOUTH TWICE DAILY, # 360 tabs, eRx: [facility] [place] [id number] Start Date: 09/01/16 Status: OrderedFiber Laxative See Instructions, 2 tblsp daily, 0 Refill(s) Start Date: 12/25/15 Status: OrderedFlonase 50 mcg/inh nasal spray 1 sprays, Nasal, qAM, allergies, 0 Refill(s) Start Date: 01/10/16 Status: Orderedlosartan-hydrochlorothiazide 50 mg-12.5 mg oral tablet See Instructions, TAKE 1 TABLET BY MOUTH DAILY, # 90 tabs, 0 Refill(s), Pharmacy : [facility] #[id number] Start Date: 08/15/16 Status: Orderedmagnesium oxide 500 mg oral tablet 500 mg 1 tabs, Oral, Daily, # 90 tabs, 0 Refill(s), Pharmacy: [facility] # [id number], 1 tabs Oral Daily Start Date: 08/15/16 Status: OrderedMetoprolol Succinate ER 50 mg oral tablet, extended release See Instructions, TAKE 1 TABLET BY MOUTH DAILY, # 90 tabs, eRx: [facility] [id number] Start Date: 09/04/16 Status: Orderedmultivitamin Daily, 0 Refill(s) Start Date: 12/25/15 Status: OrderedNorco 5 mg-325 mg oral tablet 1 tabs, Oral, q6hr, as needed for pain, Must lalst 30 days. may refill 08/27/16 , # 60 tabs, 0 Refill(s) Start Date: 08/27/16 Status: Orderednystatin-triamcinolone 100,000 units/g-0.1% topical cream 1 aye, Topical, BID, # 60 g, 0 Refill(s), Pharmacy: [facility] [id number] Start Date: 06/04/16 Status: Orderedomeprazole 20 mg oral delayed release capsule See Instructions, TAKE 1 CAPSULE BY MOUTH EVERY DAY, # 90 caps, eRx: [facility] [id number] Start Date: 09/01/16 Status: Orderedoxybutynin 5 mg oral tablet See Instructions, TAKE 1 TABLET BY MOUTH TWICE DAILY, # 180 tabs, eRx: [facility] Start Date: 09/22/16 Status: OrderedPatanol 1 drops, Eye-Both, BID, Dry Eyes, 0 Refill(s) Start Date: 12/25/15 Status: OrderedPhysical Therapy Physical Therapy, See Instructions, Evaluate and treat for General weakness, difficulty transferring, wheelchair dependent (Z74.09, R53.1, Z99.3) Please fax notes to [phone], # 1 Each, 0 Refill(s) Start Date: 09/29/16 Status: Orderedpotassium chloride 99 mg oral tablet 198 mg 2 tabs, Oral, Daily, # 180 tabs, 0 Refill(s), Pharmacy: [facility] [id number], 2 tabs Oral Daily Start Date: 06/04/16 Status: OrderedPOWER WHEELCHAIR POWER WHEELCHAIR, See Instructions, FOR MOBILITY Z99.3 I63.9 [facility] FAX [phone] ADONIS MANZANARES, # 1 Each, 0 Refill(s) Start Date: 08/20/16 Status: OrderedProAir HFA 90 mcg/inh inhalation aerosol See Instructions, INHALE 2 PUFFS FOUR TIMES DAILY NEEDED FOR WHEEZING, # 25.5 g, 1 Refill(s), eRx: [facility] [id number], INHALE 2 PUFFS FOUR TIMES DAILY NEEDED FOR WHEEZING Start Date: 08/18/16 Status: Orderedvenlafaxine 150 mg oral capsule, extended release See Instructions, TAKE 1 CAPSULE BY MOUTH TWICE DAILY, # 180 caps, eRx: [facility] [id number] Start Date: 09/01/16 Status: OrderedVitamin B12 1,000 mcg, Oral, Daily, 0 Refill(s) Start Date: 12/25/15 Status: Orderedzolpidem 10 mg oral tablet 10 mg 1 tabs, Oral, Bedtime (once a day), as needed for sleep, Seema RODRIGUEZ, # 30 tabs, 0 Refill(s) Start Date: 09/16/16 Status: Ordered Social History Social History Type Response Smoking Status Former smoker Assessment and Plan Extracted from: Title: Office Visit Note- PT, Author: Shannon Proctor PA-C Date: 09/29/16 weakness Cerebrovascular accident (CVA) H/o stroke, but she notes that her weakness is not solely related to this. Ordered: Office Visit Level 3 Est 51476 Chronic back pain Has chronicpain to her back which contributes to her inability to ambulate. Ordered: Office Visit Level 3 Est 90687 Decreased transfer ability D/w pt thatthere is not PT available to come to her apartment. She will have to travel to PT office to have services provided.Other option would be to start home health, which she would need to hav e ordered by Dr. Solis and an appt with him. She would like to try outpatient PT first. I provided an order for PT and may take this to [facility] or another PT office if preferred. Ordered: Misc Medication, Physical Therapy, See Instructions, Evaluate and treat for General weakness, difficulty transferring, wheelchair dependent (Z74.09, R53.1, Z99.3) Please fax notes to [phone], # 1 Each, 0 Refill(s) Office Visit Level 3 Est 38419 Generalized weakness Will start with PT as above. Ordered: Misc Medication, Physical Therapy, See Instructions, Evaluate and treat for General weakness, difficulty transferring, wheelchair dependent (Z74.09, R53.1, Z99.3) Please fax notes to [phone], # 1 Each, 0 Refill(s) Office Visit Level 3 Est 72758 Wheelchair dependent See above.May need evaluation by Neuro or other specialist for other ambulatory equipment. Ordered: Misc Medication, Physical Therapy, See Instructions, Evaluate and treat for General weakness, difficulty transferring, wheelchair dependent (Z74.09, R53.1, Z99.3) Please fax notes to [phone], # 1 Each, 0 Refill(s) Office Visit Level 3 Est 98927
[2017-09-09] MEDS ORDERED: CEFEPIME 1 GM in NS 100 ML IV ONE (04:03)
[2017-09-09] MEDS ORDERED: LEVOFLOXACIN PB 750 MG/150 ML BAG IV ONE (04:04)
[2017-09-09] MEDS ORDERED: NS 1,000 ML IV ONE (04:08)
[2017-09-09] MEDS ORDERED: BISACODYL 10 MG SUPPOSITORY RECTALLY PRN (04:59)
[2017-09-09] MEDS ORDERED: FLUTICASONE NASAL SPRAY 50mcg EA NOSTRIL SCH (04:59)
[2017-09-09] MEDS ORDERED: ALBUTEROL/IPRATROPIUM 2.5mg-0.5mg/3ml NEB AEROSOL PRN (04:59)
[2017-09-09] MEDS ORDERED: SENNA + DOCUSATE TABLET PO PRN (04:59)
[2017-09-09] MEDS ORDERED: FAMOTIDINE PB 20 MG/50 ML BAG IV SCH (04:59)
[2017-09-09] MEDS ORDERED: HYDROCODONE/APAP 5/325mg TAB #6 *ED PREPACK SENT HOME PRN (04:59)
[2017-09-09] MEDS ORDERED: ONDANSETRON 4 MG/2 ML INJECTION IVP PRN (04:59)
[2017-09-09] MEDS ORDERED: CEFEPIME 1 GM in NS 100 ML IV SCH (04:59)
[2017-09-09] MEDS ORDERED: ACETAMINOPHEN 325 MG TABLET PO PRN (04:59)
--- NOTE | 2017-09-09 05:20 | History & Physical Report ---
History of Present Illness Date: 09/09/17 Chief complaint: SOA HPI: Kait is a 76 year old female who was brought from assisted living by ems with respiratory distress. apparently she had 2 days of progressive cough and shortness of breath, and was found early this morning with an oxygen saturation of 75% on her usual 4 l/min by nasal cannula. in the field she was described as being in significant distress with tachypnea and tachycardia and temperature of 100.4. she was placed on high flow oxygen, and bipap when she arrived in the emergency department. she was given solu-medrol, stacked breathing treatments, and fortunately her pulse began to fall as did her oxygen requirements. she is admitted to the critical care unit on bipap for further evaluation and management. Review of Systems - Constitutional Constitutional: Present: chills, fever(s) - Respiratory Respiratory: Present: cough, dyspnea, dyspnea on exertion, wheezing. Absent: hemoptysis - Gastrointestinal Gastrointestinal: Absent: abdominal pain, change in bowel habits Past Medical History Medical History Updates: copd, respiratory failure on home oxygen. pulmonary hypertension. chronic kidney disease. gerd. although congestive heart failure appears on her chart, recent lvef was hyperdynamic at 75% Surgical History: Nerve stimulator to back-2014,2013,2007. Cataract implant x 2 -2006. Cholecystectomy-2006. Lumpectomy-left breast, breast cancer-2001. Hernia repair-2001. Bilateral chest tube with tracheotomy due to severe pneumonia-1989. Hysterctomy-1971. Bilateral tubal ligation-1970. Tonsillectomy-1945. Family History: Unable to Obtain - Social History Smoking status: Former smoker Current residence: Assisted Living Medications Home Medications Medication Instructions Recorded Confirmed Type Acyclovir 400 mg PO BID 11/11/16 09/09/17 History Albuterol HFA Inhaler [Ventolin 2 puff INH QID PRN 11/11/16 09/09/17 History Hfa 90 mcg/actuation] Atorvastatin [Lipitor] 1 tab PO DAILY 11/11/16 09/09/17 History Baclofen [Lioresal] 10 mg PO TID 11/11/16 09/09/17 History Calcium 500 + D [Os Cheko-D 500] 1 tab PO DAILY 11/11/16 09/09/17 History Colesevelam [Welchol] 1,250 mg PO BID 11/11/16 09/09/17 History Cyanocobalamin (Vitamin B-12) 1,000 mcg PO DAILY 11/11/16 09/09/17 History [Vitamin B-12] Desipramine HCl 50 mg PO BID 11/11/16 09/09/17 History Diclofenac Potassium 50 mg PO BID 11/11/16 09/09/17 History Divalproex ER [Depakote ER] 1,000 mg PO BID 11/11/16 09/09/17 History Fluticasone [Flovent Diskus 50 mcg] 1 spray EA NOSTRIL DAILY 11/11/16 09/09/17 History Magnesium Oxide [Magnesium] 500 mg PO DAILY 11/11/16 09/09/17 History Methylcellulose (with Sugar) 2 packet PO DAILY 11/11/16 09/09/17 History [Fiber Therapy Powder] Metoprolol Succinate (XL) [Toprol 50 mg PO DAILY 11/11/16 09/09/17 History Xl] Multi-Vitamin Plain [Theragran] 1 tab PO DAILY 11/11/16 09/09/17 History Nystatin/Triamcinolone CR [MYCOLOG 15 applicatio TP BID 11/11/16 09/09/17 History ii] Olopatadine 0.1% Eye Drops-Bid 1 drop EACH EYE BID 11/11/16 09/09/17 History [Patanol] Omeprazole [Prilosec] 20 mg PO ACB 11/11/16 09/09/17 History Oxybutynin Chloride 5 mg PO BID 11/11/16 09/09/17 History Venlafaxine HCl [Venlafaxine HCl 150 mg PO DAILY 11/11/16 09/09/17 History ER] Acidoph/L.bulg/Bif.b/S.thermop 1 cap PO TIDWM tab 11/24/16 09/09/17 Rx [Bacid Caplet] Albuterol/Ipratropium [Duoneb] 3 ml AEROSOL Q4H PRN each 11/24/16 09/09/17 Rx Bisacodyl Supp [Dulcolax] 10 mg RECTALLY DAILY PRN 11/24/16 09/09/17 Rx suppositor Hydrocodone/Acetaminophen 1 tab PO Q6HR PRN #30 tab 11/24/16 09/09/17 Rx [Hydrocodon-Acetaminophen 5-325] Milk of Magnesia [Mom] 30 ml PO DAILY PRN udc 11/24/16 09/09/17 Rx Nystatin Powder [Mycostatin] 1 applicatio TP TID #1 bottle 11/24/16 09/09/17 Rx PEG 3350 17gm PACKET [Miralax] 17 gm PO DAILY PRN packet 11/24/16 09/09/17 Rx Senna + Docusate [Senna Plus 1 tab PO BID PRN tab 11/24/16 09/09/17 Rx Tablet] Sodium Chloride [Deep Sea] 2 spray EA NOSTRIL QID spray 11/24/16 09/09/17 Rx Fluticasone Nasal Ewing [Flonase] 0 spray IN PRN 09/09/17 09/09/17 History Guaifenesin/Dextromethorphan 5 ml PO PRN 09/09/17 09/09/17 History [Guaifenesin Dm Syrup] Saliva Substitute Mouth Ewing 44.3 ml MM PRN 09/09/17 09/09/17 History [Biotene Moisturizing Mouth Ewing] Allergies Allergy/AdvReac Type Severity Reaction Status Date / Time gabapentin Allergy Unknown Verified 09/09/17 03:49 pregabalin [From Lyrica] Allergy Unknown Verified 09/09/17 03:49 furosemide [From Lasix] Allergy Verified 09/09/17 03:49 latex Allergy Verified 09/09/17 03:49 Exam Vital Signs: Temperature 99 F 09/09/17 03:10 Pulse Rate 95 09/09/17 04:59 Respiratory Rate 21 09/09/17 04:59 Blood Pressure 125/82 09/09/17 04:15 Pulse Oximetry 100 09/09/17 04:59 Height/Weight/BMI: Height 5 ft 3 in Weight 79.8 kg Body Mass Index 31.1 - Constitutional Present: mild distress, well nourished, well developed - Routine HEENT Exam Head: Present: normocephalic, atraumatic Eye: Present: EOMI, PERRL - Routine Neck Exam Present: supple, full ROM. Absent: JVD - Routine Respiratory Exam Present: accessory muscle use, dyspnea, crackles, distant breath sounds, diminished air movement - Routine Cardiovascular Exam Present: RRR. Absent: tachycardia - Routine Abdominal Exam Present: soft, normoactive bowel sounds, non distended, non tender - Routine Extremities Exam Present: cyanosis, clubbing, edema ( 1+ bilateral), pulses intact, normal capillary refill - Routine Skin Exam Absent: cyanosis Comments: cool to the touch per nurse - Routine Neurological Exam Present: alert - Routine Psychiatric Exam Present: unable to assess - Additional findings Additional findings: examination performed with the patient requiring bipap, with the assistance of the bedside nurse using telemedicine equipment Results - Labs CBC & Chem 7: 09/09/17 03:24 09/09/17 03:24 Microbiology Results: Microbiology 09/09/17 04:09 Peripheral/Iv Start Blood Culture - Preliminary Culture Initiated - Results Pending 09/09/17 04:31 Peripheral/Iv Start Blood Culture - Preliminary Culture Initiated - Results Pending - ABG Interpretation ABG results: 09/09/17 03:49 ABG pH 7.410 ABG pCO2 44 ABG pO2 77.0 L ABG HCO3 27.7 H ABG Total CO2 29.1 H ABG O2 Saturation 95.3 ABG Base Excess 2.6 H Assessment and Plan (1) Severe sepsis Current visit: Yes Status: Acute (2) COPD with exacerbation Current visit: Yes Status: Acute (3) Pneumonia Current visit: Yes Status: Acute (4) Acute on chronic respiratory failure with hypoxia Current visit: Yes Status: Acute (5) Acute hyponatremia Current visit: No Status: Acute Assessment and Plan: Kait is admitted to the critical care unit with ongoing bipap, she received cefepime levaquin and vancomycin as well as solu-medrol in the emergency department all of which we will continue. she has enjoyed significant improvement in her pulse, dyspnea, respiratory rate, and oxygen requirements thus far. urinalysis is pending, she refused a esquivel catheter at this time. she remains in serious condition. we will provide further symptomatically supportive and diagnostic cares as the current workup, or as changes in her clinical scenario, indicate. DVT Prophylaxis: SCD's, Lovenox - Physician Narrative Narrative: Date: 09/09/17 Time: 514 Sepsis Assessment - Evaluation SIRS Criteria: WBC < 4,000 Severe Sepsis: lactate > 2.0 mg/dL, new need for BIPAP or mechanical ventilation Hospital Course Summary Disclaimer: The visit summary below is not to be considered part of the above Progress Note.
[2017-09-09] MEDS: NS 1,000 ML IV SCH ×2 (05:22→23:13)
[2017-09-09] MEDS: ALBUTEROL/IPRATROPIUM 2.5mg-0.5mg/3ml NEB AEROSOL SCH ×4 (06:15→18:58)
[2017-09-09] MEDS: BUDESONIDE INH.SOLN 0.5mg/2ml NEB AEROSOL SCH ×2 (06:15→18:58)
[2017-09-09] MEDS ORDERED: VANCOMYCIN - PHARMACY CONSULT MC ONE (08:01)
--- NOTE | 2017-09-09 08:01 | XRay Report ---
Indication: respiratory failure PROCEDURE: XR chest 1V: Encounter: Initial Comparison: November 19, 2016 Findings: New basilar predominant interstitial and airspace opacity with small effusions. No pneumothorax. Heart size and mediastinal contours are grossly stable. Pulmonary vascularity is enlarged with redistribution. Thoracic epidural spinal stimulator leads. Impression: Moderate to severe pulmonary edema. .
[2017-09-09] MEDS ORDERED: NON-FORMULARY MEDICATION 1 EACH EACH (Acyclovir [Acyclovir] 400 MG) PO SCH (09:00)
[2017-09-09] MEDS ORDERED: ATORVASTATIN 10 MG TABLET PO SCH (09:00)
[2017-09-09] MEDS ORDERED: DESIPRAMINE HCL 50 MG PO SCH (09:00)
[2017-09-09] MEDS ORDERED: POLYETHYL GLYCOL 3350 17gm PACKET PO PRN (09:46)
[2017-09-09] MEDS: DESIPRAMINE 25 MG TABLET PO SCH ×2 (10:05→20:07)
[2017-09-09] MEDS: ACYCLOVIR 200 MG CAPSULE PO SCH ×2 (10:06→20:08)
[2017-09-09] MEDS: ENOXAPARIN 40 MG/0.4 ML INJECTION SQ SCH (10:08)
[2017-09-09] MEDS: METHYLPREDNISOLONE SOD SUCC 125mg/2ml INJECTION IVP SCH ×3 (10:10→20:05)
[2017-09-09] MEDS: BACLOFEN 10 MG TABLET PO SCH ×3 (10:10→20:10)
[2017-09-09] MEDS: HYDROCODONE/APAP 5mg/325mg TABLET PO PRN (10:55)
[2017-09-09] MEDS: CEFEPIME 1 GM in NS 100 ML IV SCH (16:22)
[2017-09-09] MEDS: COLESEVELAM 625 MG TABLET PO SCH (17:41)
[2017-09-09] MEDS: ATORVASTATIN 10 MG TABLET PO SCH (20:05)
[2017-09-09] MEDS: SENNOSIDES 8.6 MG TABLET PO SCH (20:06)
[2017-09-09] MEDS: OLOPATADINE 0.1% EYE DROPS (BID) 5ml EACH EYE SCH (20:09)
--- NOTE | 2017-09-09 21:55 | Echocardiogram ---
DATE OF PROCEDURE 09/09/2017 PROCEDURE PERFORMED Transthoracic echocardiography, M-mode echocardiography, full color spectral Doppler assessment. INDICATIONS Respiratory failure, severe sepsis. STUDY QUALITY Significantly limited due to poor acoustic windows. FINDINGS 1. LEFT VENTRICLE: Left ventricle appears normal in size. Estimated left ventricular systolic function is normal. Estimated LVEF 55%-60%. Normal left ventricular wall thickness noted. No regional wall motion abnormalities noted. Grade 1 diastolic dysfunction suggesting abnormal relaxation noted. 2. RIGHT VENTRICLE: Right ventricle appears normal in size. Normal right ventricular wall thickness noted. Normal right ventricular systolic function noted. 3. RIGHT ATRIUM: Right atrium appears mildly enlarged although poorly visualized on today's study. 4. LEFT ATRIUM: Left atrium appears normal in size. 5. MITRAL VALVE: There is moderate posterior mitral annular calcification noted. Mild thickening of the posterior mitral leaflet noted. Mild mitral regurgitation noted. No significant mitral stenosis noted. 6. AORTIC VALVE: Aortic valve poorly visualized on today's study. Appears to be mildly calcified. There is no significant aortic stenosis noted. Trivial aortic regurgitation noted. 7. TRICUSPID VALVE: Tricuspid valve poorly visualized on today's study. Trivial tricuspid regurgitation noted. 8. PULMONIC VALVE: Not visualized on today's study. 9. INFERIOR VENA CAVA: The IVC is dilated with poor respirophasic variation. The patient is on positive pressure ventilation. 10. PULMONARY ARTERY: Unable to estimate pulmonary artery systolic pressure due to incomplete tricuspid regurgitation jet on today's study. CONCLUSION 1. Technically limited study due to poor acoustic windows. 2. Normal left ventricular systolic function. Estimated LVEF 55%-60%. 2. Normal right ventricular systolic function. 3. Mild mitral regurgitation noted. 4. Trivial aortic regurgitation noted. 5. Dilated IVC with poor respiratory variation in a patient on positive pressure ventilation. [facility]
[2017-09-10] MEDS: HYDROCODONE/APAP 5mg/325mg TABLET PO PRN ×4 (01:01→23:49)
[2017-09-10] MEDS: GUAIFENESIN/DM 5ml ORAL LIQUID PO PRN (01:06)
[2017-09-10] MEDS: METHYLPREDNISOLONE SOD SUCC 125mg/2ml INJECTION IVP SCH ×2 (03:04→08:48)
[2017-09-10] MEDS: CEFEPIME 1 GM in NS 100 ML IV SCH (03:43)
[2017-09-10] MEDS ORDERED: LEVOFLOXACIN PB 750 MG/150 ML BAG IV SCH (06:00)
[2017-09-10] MEDS: OMEPRAZOLE 20 MG CAPSULE PO SCH (06:14)
[2017-09-10] MEDS: ALBUTEROL/IPRATROPIUM 2.5mg-0.5mg/3ml NEB AEROSOL SCH ×4 (06:59→19:07)
[2017-09-10] MEDS: BUDESONIDE INH.SOLN 0.5mg/2ml NEB AEROSOL SCH ×2 (07:00→19:07)
[2017-09-10] MEDS: COLESEVELAM 625 MG TABLET PO SCH ×2 (07:53→17:43)
--- NOTE | 2017-09-10 08:35 | XRay Report ---
Indication: hypoxia PROCEDURE: XR chest 1V: Encounter: Initial Comparison: September 09, 2017 Findings: Continued findings of pulmonary edema with slight improvement in aeration of the lower lobes. No pneumothorax. Small effusions. Heart size and mediastinal contours are stable. Impression: Slight improvement in edema. .
[2017-09-10] MEDS: BACLOFEN 10 MG TABLET PO SCH ×3 (08:46→22:03)
[2017-09-10] MEDS: DESIPRAMINE 25 MG TABLET PO SCH ×2 (08:47→22:03)
[2017-09-10] MEDS: ACYCLOVIR 200 MG CAPSULE PO SCH ×2 (08:47→22:02)
[2017-09-10] MEDS: ENOXAPARIN 40 MG/0.4 ML INJECTION SQ SCH (08:48)
[2017-09-10] MEDS: OLOPATADINE 0.1% EYE DROPS (BID) 5ml EACH EYE SCH ×2 (08:49→22:00)
[2017-09-10] MEDS: PredniSONE 10 MG TABLET PO SCH (09:12)
--- NOTE | 2017-09-10 09:22 | Progress Note ---
- Date 09/10/17 Subjective: The patient was seen this morning in CCU. She is currently on 3 L of oxygen and did not require BiPAP last night. She states she feels better today and is breathing more easily. She continues to cough up yellow colored phlegm. She denies any hemoptysis. She ate a good supper last night and is hungry for breakfast this morning. She denies any chest pain. She denies any abdominal discomfort. No nausea, vomiting or diarrhea. She has a Monae catheter in place with fair urine output. She has had no fevers. Objective Vital signs: Temperature 96.4 F L 09/10/17 00:32 Pulse Rate 99 09/10/17 04:00 Respiratory Rate 34 H 09/10/17 07:04 Blood Pressure 155/78 H 09/10/17 04:00 Pulse Oximetry 95 09/10/17 07:04 Height/Weight/BMI: Height 1.6 m Weight 79.7 kg Body Mass Index 31.1 Comments: Afebrile, heart rate 101, blood pressure 134/76, O2 sat 95% on 3 L Cumulative I&O 3589/2195 Total +1394 GEN-alert, oriented, no acute distress HEENT-sclera anicteric, oropharynx is moist NECK-positive JVD CV-borderline tachycardic rate with irregular rhythm CHEST-mild crackles in the right base, rhonchi in left lower lung field ABD-soft, nontender, nondistended with positive bowel sounds -Monae in place with good urine output EXT-no edema, SCDs are on NEURO-alert and oriented 3, no focal deficits SKIN-warm and dry and without rashes Results - Labs CBC & Chem 7: 09/10/17 04:07 09/10/17 04:07 Labs: Pro- calcitonin is 6.4 up from 5.18 Albumin 2.9 Phosphorus 3.4 Magnesium 1.7 Microbiology Results: Microbiology 09/09/17 15:27 Sputum, Expectorated Gram Stain - Final 09/09/17 15:27 Sputum, Expectorated Sputum Culture - Preliminary Early growth-many gram-positive cocci in pairs 09/09/17 14:11 Urine Legionella Urinary Antigen - Final-negative 09/09/17 14:11 Urine Streptococcus pneumoniae Antigen (M - Final-positive 09/09/17 04:31 Peripheral/Iv Start Blood Culture - Preliminary No Growth After 1 Day 09/09/17 04:09 Peripheral/Iv Start Blood Culture - Preliminary No Growth After 1 Day - ABG Interpretation ABG results: 09/09/17 03:49 ABG pH 7.410 ABG pCO2 44 ABG pO2 77.0 L ABG HCO3 27.7 H ABG Total CO2 29.1 H ABG O2 Saturation 95.3 ABG Base Excess 2.6 H - Echocardiogram History of Echocardiogram: Echocardiogram 09/09/2017. CONCLUSION. 1. Technically limited study due to poor acoustic windows. 2. Normal left ventricular systolic function. Estimated LVEF 55%-60%. 2. Normal right ventricular systolic function. 3. Mild mitral regurgitation noted. 4. Trivial aortic regurgitation noted. 5. Dilated IVC with poor respiratory variation in a patient on positive pressure ventilation. - Impressions Chest x-ray today reveals slight improvement in edema. Small effusions. Improved aeration of the lower lobes -I have reviewed the films and agree Assessment and Plan (1) Acute hyponatremia Current visit: No Status: Acute (2) Severe sepsis Current visit: Yes Status: Acute (3) Pneumonia Current visit: Yes Status: Acute (4) COPD with exacerbation Current visit: Yes Status: Acute (5) Acute on chronic respiratory failure with hypoxia Current visit: Yes Status: Acute Assessment and Plan: Assessment Acute on chronic hypoxic respiratory failure Healthcare associated pneumonia-urine antigen for strep pneumonia is positive Pulmonary edema on chest x-ray Severe sepsis-with elevated lactate on admission 3.4 COPD, chronically on 2 L Pulmonary fibrosis Pulmonary hypertension Chronic pain Chest pain prior to admission-resolved Plan Overall, the patient is improving. Strep pneumo urine antigen was positive. Sputum Gram stain shows many gram-positive cocci in pairs. We will de-escalate antibiotics and stop vancomycin and cefepime. The patient is on day 2 of Levaquin. Will switch to oral Levaquin tomorrow. Strep pneumo in our facility has been better percent sensitive to Levaquin. Blood cultures are negative so far. The patient's respiratory status is improved. She is on 3 L of oxygen and has not required BiPAP. Will transfer to the floor today. Regarding pulmonary edema, will give Bumex 1 mg IV 2 today along with potassium 20 mEq by mouth twice a day. Will resume the patient's usual dose of Toprol-XL 50 mg once daily. Continue telemetry on the floor. Repeat chest x-ray tomorrow. Discontinue IV fluids. Check CBC, renal panel, magnesium tomorrow. Repeat pro-calcitonin tomorrow, it was trending up today. White count is up today, but the patient is on steroids. Will change to by mouth steroids today. The patient does not have any wheezing, I do not think she has much of a component of COPD exacerbation. Continue PT and OT Discussed with the patient's nurse and case management. Possible transfer back to the skilled nursing this weekend if she continues to improve DVT Prophylaxis: SCD's, Lovenox GI Prophylaxis: Omeprazole Resuscitation Status: Full Code - Physician Narrative Narrative: Date: 09/10/17 Time: 09 Hospital Course Summary Disclaimer: The visit summary below is not to be considered part of the above Progress Note.
[2017-09-10] MEDS: SENNOSIDES 8.6 MG TABLET PO SCH (22:02)
[2017-09-10] MEDS: ATORVASTATIN 10 MG TABLET PO SCH (22:02)
[2017-09-11] MEDS: OMEPRAZOLE 20 MG CAPSULE PO SCH (06:15)
[2017-09-11] MEDS: LEVOFLOXACIN 750 MG TABLET PO SCH (06:15)
[2017-09-11] MEDS: ALBUTEROL/IPRATROPIUM 2.5mg-0.5mg/3ml NEB AEROSOL SCH ×4 (08:15→20:19)
[2017-09-11] MEDS: BUDESONIDE INH.SOLN 0.5mg/2ml NEB AEROSOL SCH ×2 (08:15→20:19)
--- NOTE | 2017-09-11 08:30 | XRay Report ---
Indication: pneumonia,pulm edema, hx pulm fibrosis PROCEDURE: XR chest 1V: Encounter: Initial Comparison: September 10, 2017 Findings: Pulmonary edema has improved. Improving aeration of both lower lobes. No new or worsening airspace disease. Trace effusions. No pneumothorax. Heart size and mediastinal contours are stable. Pulmonary vascularity is less congested. Impression: Improving appearance of the chest. .
[2017-09-11] MEDS: ENOXAPARIN 40 MG/0.4 ML INJECTION SQ SCH (08:54)
[2017-09-11] MEDS: COLESEVELAM 625 MG TABLET PO SCH ×2 (08:55→17:52)
[2017-09-11] MEDS: PredniSONE 10 MG TABLET PO SCH (08:55)
[2017-09-11] MEDS: HYDROCODONE/APAP 5mg/325mg TABLET PO PRN ×2 (08:55→20:59)
[2017-09-11] MEDS: OLOPATADINE 0.1% EYE DROPS (BID) 5ml EACH EYE SCH ×2 (08:55→21:01)
[2017-09-11] MEDS: ACYCLOVIR 200 MG CAPSULE PO SCH ×2 (08:55→20:44)
[2017-09-11] MEDS: GUAIFENESIN/DM 5ml ORAL LIQUID PO PRN (08:55)
[2017-09-11] MEDS: DESIPRAMINE 25 MG TABLET PO SCH ×2 (08:56→20:45)
[2017-09-11] MEDS: BACLOFEN 10 MG TABLET PO SCH ×3 (08:57→20:44)
[2017-09-11] MEDS ORDERED: VANCOMYCIN - PHARMACY CONSULT MC ONE (09:23)
--- NOTE | 2017-09-11 09:49 | Pharmacy Consult-Antibiotics ---
Pharmacy Consult-Vancomycin - Laboratory Information WBC 14.5 T/MM3 (4.5-11.0) H 09/11/17 04:23 BUN 16.0 MG/DL (7-17) 09/11/17 04:23 Creatinine 0.6 mg/dL (0.7-1.2) L 09/11/17 04:23 Procalcitonin 4.68 NG/ML H* 09/11/17 04:23 VANCOMYCIN THERAPY: 76yo F with HAP, Sepsis, Exaceb. COPD, Resp. Failure, Hyponatremia On Levofloxacine 750mg po daily Adding Vancomycin @ 1250mg IV q 12hours. Renal fx is WNL's and stable. Will confirm Vancomycin trough level prior to tomorrow am dose. Target trough = 15 - 20 mcg/ml thank you
--- NOTE | 2017-09-11 17:48 | Progress Note ---
- Date 09/11/17 Subjective: The patient was seen this afternoon in her room. She states she's feeling better. She states she is thinking more clearly and breathing better. She is not coughing as much, but when she does cough she coughs up can phlegm. No hemoptysis. No pain except chronic pain in her neck and back. She has a Monae catheter in place with good urine output Objective Vital signs: Temperature 97.7 F 09/11/17 16:09 Pulse Rate 79 09/11/17 16:09 Respiratory Rate 20 09/11/17 16:27 Blood Pressure 145/87 H 09/11/17 16:09 Pulse Oximetry 95 09/11/17 16:27 Height/Weight/BMI: Height 1.6 m Weight 77.6 kg Body Mass Index 31.1 Comments: Febrile, heart rate 79, respirations 20, blood pressure 145/87, O2 sat 95% on 4 L Weight is 77.6 kg, down 3 kg today. I&O yesterday was -2646 mL's and today is - 2430 mL's so far GEN-alert, oriented, no acute distress HEENT-sclera anicteric, oropharynx is moist NECK-supple CV-regular rate and rhythm CHEST-mild coarse breath sounds with crackles in the bases ABD-soft, nontender, positive bowel sounds -Monae in place with good urine output EXT-no edema in the legs NEURO-no focal deficits SKIN-warm and dry Results - Labs CBC & Chem 7: 09/11/17 04:23 09/11/17 04:23 Microbiology Results: Microbiology 09/09/17 15:27 Sputum, Expectorated Gram Stain - Final 09/09/17 15:27 Sputum, Expectorated Sputum Culture - Preliminary Staphylococcus aureus 09/09/17 04:31 Peripheral/Iv Start Blood Culture - Preliminary No Growth After 2 Days 09/09/17 04:09 Peripheral/Iv Start Blood Culture - Preliminary No Growth After 2 Days 09/09/17 14:11 Urine Legionella Urinary Antigen - Final 09/09/17 14:11 Urine Streptococcus pneumoniae Antigen (M - Final-positive - Impressions Chest x-ray today on my read and per radiology shows pulmonary edema has improved. Improved aeration of both lower lobes. No new or worsening airspace disease. Assessment and Plan (1) Acute hyponatremia Current visit: No Status: Acute (2) Severe sepsis Current visit: Yes Status: Acute (3) Pneumonia Current visit: Yes Status: Acute (4) COPD with exacerbation Current visit: Yes Status: Acute (5) Acute on chronic respiratory failure with hypoxia Current visit: Yes Status: Acute Assessment and Plan: Assessment Acute on chronic hypoxic respiratory failure Healthcare associated pneumonia-urine antigen for strep pneumonia is positive Pulmonary edema on chest x-ray Severe sepsis-with elevated lactate on admission 3.4 COPD, chronically on 2 L Pulmonary fibrosis Pulmonary hypertension Chronic pain Chest pain prior to admission-resolved Plan Overall, the patient continues to slowly improve. Her pro calcitonin is trending down. Weight was trending down with diuresis. She is overall feeling better. Chest x-ray shows improvement. It looks like she still needs some diuresis however. She required an increase in oxygen to 4 L per nasal cannula instead of 3 L yesterday. She is chronically on 2 L at home. Sputum culture was positive for staph aureus and sensitivities are pending. Yesterday urine strep pneumo was positive. She is on Levaquin for presumed pneumococcal pneumonia. We'll restart Vanco since staph aureus is in the sputum. Would likely be able to discontinue vancomycin tomorrow if she does not have MRSA. Decrease Bumex to 1 mg IV daily. Continue potassium 20 mEq by mouth daily. Recheck lab tomorrow with CBC, BNP, and basic metabolic profile Repeat chest x-ray tomorrow DVT Prophylaxis: SCD's, Lovenox GI Prophylaxis: Omeprazole Resuscitation Status: Full Code - Physician Narrative Narrative: Date: 09/11/17 Time: 1745 Hospital Course Summary Disclaimer: The visit summary below is not to be considered part of the above Progress Note. Hospital Course: 09/10/2017 Overall, the patient is improving. Strep pneumo urine antigen was positive. Sputum Gram stain shows many gram-positive cocci in pairs. We will de-escalate antibiotics and stop vancomycin and cefepime. The patient is on day 2 of Levaquin. Will switch to oral Levaquin tomorrow. Strep pneumo in our facility has been better percent sensitive to Levaquin. Blood cultures are negative so far. The patient's respiratory status is improved. She is on 3 L of oxygen and has not required BiPAP. Will transfer to the floor today. Regarding pulmonary edema, will give Bumex 1 mg IV 2 today along with potassium 20 mEq by mouth twice a day. Will resume the patient's usual dose of Toprol-XL 50 mg once daily. Continue telemetry on the floor. Repeat chest x-ray tomorrow. Discontinue IV fluids. Check CBC, renal panel, magnesium tomorrow. Repeat pro-calcitonin tomorrow, it was trending up today. White count is up today, but the patient is on steroids. Will change to by mouth steroids today. The patient does not have any wheezing, I do not think she has much of a component of COPD exacerbation. Continue PT and OT Discussed with the patient's nurse and case management. Possible transfer back to the skilled nursing this weekend if she continues to improve
[2017-09-11] MEDS: SENNOSIDES 8.6 MG TABLET PO SCH (20:44)
[2017-09-11] MEDS: ATORVASTATIN 10 MG TABLET PO SCH (20:45)
[2017-09-12] MEDS: LEVOFLOXACIN 750 MG TABLET PO SCH (06:07)
[2017-09-12] MEDS: OMEPRAZOLE 20 MG CAPSULE PO SCH (06:07)
[2017-09-12] MEDS: ALBUTEROL/IPRATROPIUM 2.5mg-0.5mg/3ml NEB AEROSOL SCH ×4 (06:58→20:00)
[2017-09-12] MEDS: BUDESONIDE INH.SOLN 0.5mg/2ml NEB AEROSOL SCH ×2 (06:58→20:00)
[2017-09-12] MEDS: NS 1,000 ML IV SCH (07:07)
[2017-09-12] MEDS: ACYCLOVIR 200 MG CAPSULE PO SCH ×2 (08:56→21:06)
[2017-09-12] MEDS: HYDROCODONE/APAP 5mg/325mg TABLET PO PRN ×2 (08:56→21:21)
[2017-09-12] MEDS: ENOXAPARIN 40 MG/0.4 ML INJECTION SQ SCH (08:56)
[2017-09-12] MEDS: COLESEVELAM 625 MG TABLET PO SCH ×2 (08:56→17:20)
[2017-09-12] MEDS: DESIPRAMINE 25 MG TABLET PO SCH ×2 (08:56→21:07)
[2017-09-12] MEDS: OLOPATADINE 0.1% EYE DROPS (BID) 5ml EACH EYE SCH ×2 (08:58→21:07)
[2017-09-12] MEDS: BACLOFEN 10 MG TABLET PO SCH ×3 (09:13→21:06)
[2017-09-12] MEDS: PredniSONE 10 MG TABLET PO SCH (09:13)
[2017-09-12] MEDS: SALINE FLUSH 10ml SYRINGE IVF PRN (09:14)
--- NOTE | 2017-09-12 09:56 | Pharmacy Consult-Antibiotics ---
Pharmacy Consult-Vancomycin - Laboratory Information WBC 13.4 T/MM3 (4.5-11.0) H 09/12/17 04:34 BUN 15.0 MG/DL (7-17) 09/12/17 04:34 Creatinine 0.6 mg/dL (0.7-1.2) L 09/12/17 08:45 Procalcitonin 2.18 NG/ML H* 09/12/17 08:45 Vancomycin Trough 17.37 ug/mL (15-20) 09/12/17 08:45 - Consult Information VANCOMYCIN CONSULT: DAY 4 Vancomycin Trough = 17.37 mcg/ml. Today's SCr = 0.6 mg/dl. WBC'S decreased from 14.5 (yesterday) to 13.4 (today) Procalcitonin level also decreased from 4.68 (yesterday) to 2.18 (today) Will continue with Vancomycin 1250 mg IV q12hrs. Will continue to monitor and make adjustments accordingly. Thank you. Gi Vargas, PharmD
--- NOTE | 2017-09-12 11:29 | Progress Note ---
- Date 09/12/17 Subjective: 76 year old female who was brought from assisted living by ems with respiratory distress. She had 2 days of progressive cough and shortness of breath, and was found early on the morning of admission with an oxygen saturation of 75% on her usual 4 l/min by nasal cannula. In the field she was described as being in significant distress with tachypnea and tachycardia and temperature of 100.4. She was placed on high flow oxygen, and bipap when she arrived in the emergency department. She was given solu-medrol, stacked breathing treatments, and fortunately her pulse began to fall as did her oxygen requirements. She was admitted to the critical care unit on bipap for further evaluation and management. And echo was performed showing and ejection fraction of 55 to 60%. RV size and function. Mitral insufficiency. Her chest x-ray showed pulmonary edema. She was placed on vancomycin and cefepime as well as levofloxacin. Her strep antigen was positive so her antibiotics were changed to just Levaquin. Subsequently the sputum culture came back as MRSA and therefore the vancomycin was resumed. When seen by me today she is in bed complaining of back pain which is chronic for her. She is essentially nonambulatory. She reports her breathing is improving. She's continues to have some cough with some zepeda sputum production. She denies fevers or chills. She denies lightheadedness or dizziness. She denies chest pain, pressure or tightness. She denies palpitations. She denies nausea, vomiting or diarrhea. She reports no bowel movement since admission. She does complain of early satiety. She would probably benefit from increasing number but decreasing quantity of food. Perhaps 6 small meals a day would be better. She denies any dysuria. She denies problems with lower extremity edema. Objective Vital signs: Temperature 96.3 F L 09/12/17 08:38 Pulse Rate 87 09/12/17 08:38 Respiratory Rate 16 09/12/17 10:37 Blood Pressure 154/90 H 09/12/17 08:38 Pulse Oximetry 95 09/12/17 10:37 Height/Weight/BMI: Height 1.6 m Weight 77.7 kg Body Mass Index 31.1 Comments: Gen: alert and oriented. NAD. Currently on 3 L via nasal cannula Skin: warm and dry, No rashes HEENT: NC/AT PERRL, EOMI, Sclera, lids and conjunctiva wnl. MMM. OP clear. Neck: No JVD, Carotids 2+ without bruits. Lungs: diminished, few crackles heard more on the left than right, no rhonchi or wheezes CV: regular, No murmur, rubs or gallops. Pedal pulses 2+, radial pulses 2+, No edema Abd: soft. +BS, NT/ND. MS: TRAN, Normal ROM, strength Neuro: No focal deficit Psy: Appropriate mood and affect Results - Labs CBC & Chem 7: 09/12/17 04:34 09/12/17 08:45 Microbiology Results: Microbiology 09/09/17 15:27 Sputum, Expectorated Gram Stain - Final 09/09/17 15:27 Sputum, Expectorated Sputum Culture - Final Staphylococcus aureus, MRSA Normal Respiratory Ngoc 09/09/17 04:09 Peripheral/Iv Start Blood Culture - Preliminary No Growth After 3 Days 09/09/17 04:31 Peripheral/Iv Start Blood Culture - Preliminary No Growth After 3 Days 09/09/17 14:11 Urine Legionella Urinary Antigen - Final 09/09/17 14:11 Urine Streptococcus pneumoniae Antigen (M - Final Assessment and Plan (1) Acute hyponatremia Current visit: No Status: Acute (2) Severe sepsis Current visit: Yes Status: Acute (3) Pneumonia Current visit: Yes Status: Acute (4) COPD with exacerbation Current visit: Yes Status: Acute (5) Acute on chronic respiratory failure with hypoxia Current visit: Yes Status: Acute Assessment and Plan: Assessment and plan: severe sepsis on admission -resolved acute on chronic hypoxic respiratory failure -likely related to healthcare associated pneumonia -patient now on levofloxacin and vancomycin -respiratory therapy -repeat chest x-ray in a.m. Pulmonary edema -resolving -continue Bumex COPD -on 2 L chronically, currently on 3 L -NU inhalers and respiratory therapy -continue steroids Pulmonary fibrosis Chronic pain -continue pain management Hypertension -continue metoprolol succinate 50 mg daily, blood pressures borderline high, may have to increased dose Dyslipidemia -continue Dragan Depression -continue Effexor Gerd -continue PPI Prophylaxis -Lovenox and PPI DVT Prophylaxis: SCD's, Lovenox GI Prophylaxis: Omeprazole Resuscitation Status: Full Code - Physician Narrative Narrative: Date: 09/12/17 Time: 1120 Hospital Course Summary Disclaimer: The visit summary below is not to be considered part of the above Progress Note. Hospital Course: 09/10/2017 Overall, the patient is improving. Strep pneumo urine antigen was positive. Sputum Gram stain shows many gram-positive cocci in pairs. We will de-escalate antibiotics and stop vancomycin and cefepime. The patient is on day 2 of Levaquin. Will switch to oral Levaquin tomorrow. Strep pneumo in our facility has been better percent sensitive to Levaquin. Blood cultures are negative so far. The patient's respiratory status is improved. She is on 3 L of oxygen and has not required BiPAP. Will transfer to the floor today. Regarding pulmonary edema, will give Bumex 1 mg IV 2 today along with potassium 20 mEq by mouth twice a day. Will resume the patient's usual dose of Toprol-XL 50 mg once daily. Continue telemetry on the floor. Repeat chest x-ray tomorrow. Discontinue IV fluids. Check CBC, renal panel, magnesium tomorrow. Repeat pro-calcitonin tomorrow, it was trending up today. White count is up today, but the patient is on steroids. Will change to by mouth steroids today. The patient does not have any wheezing, I do not think she has much of a component of COPD exacerbation. Continue PT and OT Discussed with the patient's nurse and case management. Possible transfer back to the assisted this weekend if she continues to improve
[2017-09-12] MEDS: ATORVASTATIN 10 MG TABLET PO SCH (21:05)
[2017-09-12] MEDS: SENNOSIDES 8.6 MG TABLET PO SCH (21:05)
[2017-09-12] MEDS: NS FLUSH BAG 500ml IV PRN (21:08)
[2017-09-13] MEDS: HYDROCODONE/APAP 5mg/325mg TABLET PO PRN ×3 (04:12→19:44)
[2017-09-13] MEDS: OMEPRAZOLE 20 MG CAPSULE PO SCH (06:09)
[2017-09-13] MEDS: LEVOFLOXACIN 750 MG TABLET PO SCH (06:09)
[2017-09-13] MEDS: ENOXAPARIN 40 MG/0.4 ML INJECTION SQ SCH (08:34)
[2017-09-13] MEDS: MAGNESIUM SULFATE 1gm PREMIX 1 GM/100 ML BAG IV SCH ×4 (08:35→14:21)
[2017-09-13] MEDS: ACYCLOVIR 200 MG CAPSULE PO SCH ×2 (08:46→21:35)
[2017-09-13] MEDS: PredniSONE 20 MG TABLET PO SCH (08:46)
[2017-09-13] MEDS: BACLOFEN 10 MG TABLET PO SCH ×3 (08:46→21:37)
[2017-09-13] MEDS: COLESEVELAM 625 MG TABLET PO SCH ×2 (08:47→16:40)
[2017-09-13] MEDS: MAGNESIUM OXIDE 400 MG TABLET PO SCH (08:47)
[2017-09-13] MEDS: DESIPRAMINE 25 MG TABLET PO SCH ×2 (08:47→21:36)
--- NOTE | 2017-09-13 08:47 | Progress Note ---
- Date 09/13/17 Subjective: 76 year old female who was brought from assisted living by ems with respiratory distress. She had 2 days of progressive cough and shortness of breath, and was found early on the morning of admission with an oxygen saturation of 75% on her usual 4 l/min by nasal cannula. In the field she was described as being in significant distress with tachypnea and tachycardia and temperature of 100.4. She was placed on high flow oxygen, and bipap when she arrived in the emergency department. She was given solu-medrol, stacked breathing treatments, and fortunately her pulse began to fall as did her oxygen requirements. She was admitted to the critical care unit on bipap for further evaluation and management. And echo was performed showing and ejection fraction of 55 to 60%. RV size and function. Mitral insufficiency. Her chest x-ray showed pulmonary edema. She was placed on vancomycin and cefepime as well as levofloxacin. Her strep antigen was positive so her antibiotics were changed to just Levaquin. Subsequently the sputum culture came back as MRSA and therefore the vancomycin was resumed. When seen by me today she is resting in bed feeling a bit better with the increase in pain medications. She continues to think her breathing is improving. Her chest x-ray appears stable if not slightly improved today. Minimal cough. She denies fevers or chills. She denies lightheadedness or dizziness. She denies chest pain, pressure or tightness. She denies palpitations. She denies nausea, vomiting or diarrhea. She reports still no bowel movement. She is eating better with the more frequent smaller meals. She denies any abdominal pain. She continues to have a esquivel in place. Objective Vital signs: Temperature 98.1 F 09/13/17 07:32 Pulse Rate 83 09/13/17 07:32 Respiratory Rate 18 09/13/17 07:32 Blood Pressure 141/87 H 09/13/17 07:32 Pulse Oximetry 95 09/13/17 07:32 Height/Weight/BMI: Height 1.6 m Weight 77.9 kg Body Mass Index 31.1 Comments: Gen: alert and oriented. NAD. Currently on 2 L via nasal cannula Skin: warm and dry, No rashes HEENT: NC/AT PERRL, EOMI, Sclera, lids and conjunctiva wnl. MMM. OP clear. Neck: No JVD, Carotids 2+ without bruits. Lungs: diminished, few crackles heard more on the left than right, no rhonchi or wheezes CV: regular, No murmur, rubs or gallops. Pedal pulses 2+, radial pulses 2+, No edema noted, braces on both legs Abd: soft. +BS, NT/ND. MS: TRAN Neuro: No focal deficit Psy: Appropriate mood and affect Results - Labs CBC & Chem 7: 09/13/17 04:28 09/13/17 04:28 Microbiology Results: Microbiology 09/09/17 04:09 Peripheral/Iv Start Blood Culture - Preliminary No Growth After 4 Days 09/09/17 04:31 Peripheral/Iv Start Blood Culture - Preliminary No Growth After 4 Days 09/09/17 15:27 Sputum, Expectorated Gram Stain - Final 09/09/17 15:27 Sputum, Expectorated Sputum Culture - Final Staphylococcus aureus, MRSA Normal Respiratory Ngoc 09/09/17 14:11 Urine Legionella Urinary Antigen - Final 09/09/17 14:11 Urine Streptococcus pneumoniae Antigen (M - Final Assessment and Plan (1) Acute hyponatremia Current visit: No Status: Acute (2) Severe sepsis Current visit: Yes Status: Acute (3) Pneumonia Current visit: Yes Status: Acute (4) COPD with exacerbation Current visit: Yes Status: Acute (5) Acute on chronic respiratory failure with hypoxia Current visit: Yes Status: Acute Assessment and Plan: Assessment and plan: severe sepsis on admission -resolved acute on chronic hypoxic respiratory failure -likely related to healthcare associated pneumonia -patient now on levofloxacin and vancomycin for strep and staph (MRSA) -respiratory therapy Pulmonary edema -resolving -continue Bumex-change to oral COPD -on 2 L chronically, currently down to 2 L this morning -continue inhalers and respiratory therapy -continue steroids Pulmonary fibrosis Hypertension -continue metoprolol succinate 50 mg daily, blood pressures borderline high, but better recently Dyslipidemia -continue Statin Chronic pain -start oxycodone extended release 10 mg Q 12 hours scheduled -[place] 5 mg 1 to 2 Q4 PRN breakthrough Depression -continue Effexor Gerd -continue PPI Prophylaxis -Lovenox and PPI Possibly home soon DVT Prophylaxis: SCD's, Lovenox GI Prophylaxis: Omeprazole Resuscitation Status: Full Code - Physician Narrative Narrative: Date: 09/13/17 Time: 0846 Hospital Course Summary Disclaimer: The visit summary below is not to be considered part of the above Progress Note. Hospital Course: 09/10/2017 Overall, the patient is improving. Strep pneumo urine antigen was positive. Sputum Gram stain shows many gram-positive cocci in pairs. We will de-escalate antibiotics and stop vancomycin and cefepime. The patient is on day 2 of Levaquin. Will switch to oral Levaquin tomorrow. Strep pneumo in our facility has been better percent sensitive to Levaquin. Blood cultures are negative so far. The patient's respiratory status is improved. She is on 3 L of oxygen and has not required BiPAP. Will transfer to the floor today. Regarding pulmonary edema, will give Bumex 1 mg IV 2 today along with potassium 20 mEq by mouth twice a day. Will resume the patient's usual dose of Toprol-XL 50 mg once daily. Continue telemetry on the floor. Repeat chest x-ray tomorrow. Discontinue IV fluids. Check CBC, renal panel, magnesium tomorrow. Repeat pro-calcitonin tomorrow, it was trending up today. White count is up today, but the patient is on steroids. Will change to by mouth steroids today. The patient does not have any wheezing, I do not think she has much of a component of COPD exacerbation. Continue PT and OT Discussed with the patient's nurse and case management. Possible transfer back to the [facility] this weekend if she continues to improve
[2017-09-13] MEDS: OLOPATADINE 0.1% EYE DROPS (BID) 5ml EACH EYE SCH ×2 (10:09→21:34)
[2017-09-13] MEDS: ALBUTEROL/IPRATROPIUM 2.5mg-0.5mg/3ml NEB AEROSOL SCH ×3 (10:30→19:45)
[2017-09-13] MEDS: BUDESONIDE INH.SOLN 0.5mg/2ml NEB AEROSOL SCH ×2 (10:30→19:45)
--- NOTE | 2017-09-13 14:24 | XRay Report ---
Indication: pneumonia and pulm edema PROCEDURE: XR chest 1V: Encounter: Initial Comparison: September 11, 2017 Findings: Continued mild interstitial prominence with patchy lower lobe airspace opacities. No pneumothorax. Trace pleural effusions. Heart size and mediastinal contours are stable. Pulmonary vascularity is stable. Impression: No change. .
--- NOTE | 2017-09-13 14:38 | XRay Report ---
Indication: follow up PROCEDURE: XR chest 1V: Encounter: Initial Comparison: September 12, 2017 Findings: Improving aeration of the lungs with decreasing lower lobe opacities. Mild linear infiltrates remaining in the right base. No pneumothorax or significant pleural fluid. Heart size and mediastinal contours are stable. Pulmonary vascularity is normal. Impression: Improving aeration of the lower lobes. .
[2017-09-13] MEDS ORDERED: SENNA + DOCUSATE TABLET PO SCH (21:00)
[2017-09-13] MEDS: ATORVASTATIN 10 MG TABLET PO SCH (21:36)
[2017-09-13] MEDS: SENNOSIDES 8.6 MG TABLET PO SCH (21:36)
[2017-09-13] MEDS: SALINE FLUSH 10ml SYRINGE IVF PRN (21:37)
[2017-09-13] MEDS: NS FLUSH BAG 500ml IV PRN (21:38)
[2017-09-14] MEDS: HYDROCODONE/APAP 5mg/325mg TABLET PO PRN ×3 (01:28→14:05)
[2017-09-14] MEDS: SALINE FLUSH 10ml SYRINGE IVF PRN (06:16)
[2017-09-14] MEDS: OMEPRAZOLE 20 MG CAPSULE PO SCH (06:17)
[2017-09-14] MEDS: LEVOFLOXACIN 750 MG TABLET PO SCH (06:18)
[2017-09-14] MEDS: ALBUTEROL/IPRATROPIUM 2.5mg-0.5mg/3ml NEB AEROSOL SCH (07:58)
[2017-09-14] MEDS: BUDESONIDE INH.SOLN 0.5mg/2ml NEB AEROSOL SCH (07:58)
[2017-09-14] MEDS: BACLOFEN 10 MG TABLET PO SCH (08:27)
[2017-09-14] MEDS: MAGNESIUM OXIDE 400 MG TABLET PO SCH (08:27)
[2017-09-14] MEDS: PredniSONE 20 MG TABLET PO SCH (08:27)
[2017-09-14] MEDS: ACYCLOVIR 200 MG CAPSULE PO SCH (08:28)
[2017-09-14] MEDS: COLESEVELAM 625 MG TABLET PO SCH (08:29)
[2017-09-14] MEDS: DESIPRAMINE 25 MG TABLET PO SCH (08:29)
[2017-09-14] MEDS: ENOXAPARIN 40 MG/0.4 ML INJECTION SQ SCH (08:29)
[2017-09-14] MEDS: OLOPATADINE 0.1% EYE DROPS (BID) 5ml EACH EYE SCH (08:30)
[2017-09-14] MEDS ORDERED: POLYETHYL GLYCOL 3350 17gm PACKET PO SCH (09:00)
[2017-09-14 10:33] VITALS: BMI 30.7
--- NOTE | 2017-09-14 11:09 | Pharmacy Consult-Antibiotics ---
Pharmacy Consult-Vancomycin - Laboratory Information WBC 9.9 T/MM3 (4.5-11.0) 09/14/17 04:08 BUN 16.0 MG/DL (7-17) 09/14/17 04:08 Creatinine 0.7 mg/dL (0.7-1.2) 09/14/17 04:08 Procalcitonin 2.18 NG/ML H* 09/12/17 08:45 Vancomycin Trough 17.37 ug/mL (15-20) 09/12/17 08:45 VANCOMYCIN THERAPY: DAY 6 Vancomycin therapy currently at 1250mg IV q 121hrs. MRSA confirmed. Also on Levofloxacin for strep. Renal fx is impaired but stable: Estimated Creatinine Clearance = 49 ml/min PCT very slowly coming down - still elevated. Will recheck trough levels tomorrow am prior to morning dose. Recheck PCT as well. Thank you.
--- NOTE | 2017-09-14 11:19 | Discharge Summary ---
Discharge Information Date of admission: 09/09/17 04:13 Anticipated date of discharge: 09/14/17 Attending Physician: Elizabeth Donald MD Primary care physician: Jocelyn Holt MD - Discharge Diagnosis (1) Acute hyponatremia Status: Acute (2) Severe sepsis Status: Acute (3) Pneumonia Status: Acute (4) COPD with exacerbation Status: Acute (5) Acute on chronic respiratory failure with hypoxia Status: Acute Acute on chronic hypoxic respiratory failure Healthcare associated pneumonia-urine antigen for strep pneumonia is positive, sputum culture positive for MRSA sensitive to doxycycline Pulmonary edema on chest [id number] Severe sepsis-with elevated lactate on admission 3.4 COPD, chronically on 2 L Pulmonary fibrosis Pulmonary hypertension Chronic pain-oxycodone scheduled added to pain regimen with good results Chest pain prior to admission-resolved Chronic kidney disease with estimated creatinine clearance of 49 Dysphagia-speech therapy recommends mechanical soft diet with nectar thick liquids. She had early satiety and when changed to 6 small meals per day, her intake improved. Would recommend continued speech therapy at the half-way to see if diet can be advanced. - Procedures Procedures: Monae catheter placement on admission, removed on 09/14/2017 prior to discharge - Laboratory Labs: 09/14/17 04:08 09/14/17 04:08 Laboratory Tests 09/09/17 09/09/17 09/09/17 03:24 03:24 03:49 WBC 2.6 L Hgb 12.9 Plt Count 229 Neutrophils % (Manual) Band Neutrophils % ABG pH 7.410 ABG pCO2 44 ABG pO2 77.0 L ABG HCO3 27.7 H ABG Total CO2 29.1 H ABG O2 Saturation 95.3 ABG Base Excess 2.6 H O2 Delivery Method Bipap FiO2 55 Magnesium Troponin I NT-Pro-B Natriuret Pep 605 H Plasma Lactate 3.4 H Procalcitonin 09/09/17 09/09/17 09/10/17 08:00 08:07 04:07 WBC Hgb Plt Count Neutrophils % (Manual) 51.0 Band Neutrophils % 23.0 H D ABG pH ABG pCO2 ABG pO2 ABG HCO3 ABG Total CO2 ABG O2 Saturation ABG Base Excess O2 Delivery Method FiO2 Magnesium Troponin I 0.022 NT-Pro-B Natriuret Pep Plasma Lactate 1.9 Procalcitonin 5.18 H* 09/10/17 09/11/17 09/12/17 04:07 04:23 08:45 WBC Hgb Plt Count Neutrophils % (Manual) Band Neutrophils % ABG pH ABG pCO2 ABG pO2 ABG HCO3 ABG Total CO2 ABG O2 Saturation ABG Base Excess O2 Delivery Method FiO2 Magnesium Troponin I NT-Pro-B Natriuret Pep Plasma Lactate Procalcitonin 6.40 H* 4.68 H* 2.18 H* 09/14/17 04:08 WBC Hgb Plt Count Neutrophils % (Manual) Band Neutrophils % ABG pH ABG pCO2 ABG pO2 ABG HCO3 ABG Total CO2 ABG O2 Saturation ABG Base Excess O2 Delivery Method FiO2 Magnesium 2.0 D Troponin I NT-Pro-B Natriuret Pep Plasma Lactate Procalcitonin - Microbiology Microbiology 09/09/17 04:09 Peripheral/Iv Start Blood Culture - Final No Growth After 5 Days 09/09/17 04:31 Peripheral/Iv Start Blood Culture - Final No Growth After 5 Days 09/09/17 15:27 Sputum, Expectorated Gram Stain - Final 09/09/17 15:27 Sputum, Expectorated Sputum Culture - Final Staphylococcus aureus, MRSA (sensitive to doxycycline, gentamicin, linezolid, tetracycline, Bactrim, vancomycin) Normal Respiratory Ngoc 09/09/17 14:11 Urine Legionella Urinary Antigen - Final-negative 09/09/17 14:11 Urine Streptococcus pneumoniae Antigen (M - Final-positive - Radiology Radiology: Chest x-ray 09/09/2017 shows moderate to severe pulmonary edema and new basilar predominant interstitial and airspace opacity with small effusions. Chest x-ray 09/10/2017 shows slight improvement in edema. Chest x-ray 09/11/2017 shows improving appearance of the chest. Chest x-ray 09/12/2017 shows no change. Chest x-ray 09/13/2017 shows pulmonary vascularity is normal. Improving aeration of the lower lobes. Echocardiogram 09/09/2017 FINDINGS 1. LEFT VENTRICLE: Left ventricle appears normal in size. Estimated left ventricular systolic function is normal. Estimated LVEF 55%-60%. Normal left ventricular wall thickness noted. No regional wall motion abnormalities noted. Grade 1 diastolic dysfunction suggesting abnormal relaxation noted. 2. RIGHT VENTRICLE: Right ventricle appears normal in size. Normal right ventricular wall thickness noted. Normal right ventricular systolic function noted. 3. RIGHT ATRIUM: Right atrium appears mildly enlarged although poorly visualized on today's study. 4. LEFT ATRIUM: Left atrium appears normal in size. 5. MITRAL VALVE: There is moderate posterior mitral annular calcification noted. Mild thickening of the posterior mitral leaflet noted. Mild mitral regurgitation noted. No significant mitral stenosis noted. 6. AORTIC VALVE: Aortic valve poorly visualized on today's study. Appears to be mildly calcified. There is no significant aortic stenosis noted. Trivial aortic regurgitation noted. 7. TRICUSPID VALVE: Tricuspid valve poorly visualized on today's study. Trivial tricuspid regurgitation noted. 8. PULMONIC VALVE: Not visualized on today's study. 9. INFERIOR VENA CAVA: The IVC is dilated with poor respirophasic variation. The patient is on positive pressure ventilation. 10. PULMONARY ARTERY: Unable to estimate pulmonary artery systolic pressure due to incomplete tricuspid regurgitation jet on today's study. CONCLUSION 1. Technically limited study due to poor acoustic windows. 2. Normal left ventricular systolic function. Estimated LVEF 55%-60%. 2. Normal right ventricular systolic function. 3. Mild mitral regurgitation noted. 4. Trivial aortic regurgitation noted. 5. Dilated IVC with poor respiratory variation in a patient on positive pressure ventilation. 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 apparently she had 2 days of progressive cough and shortness of breath, and was found early this morning with an oxygen saturation of 75% on her usual 4 l/min by nasal cannula. in the field she was described as being in significant distress with tachypnea and tachycardia and temperature of 100.4. she was placed on high flow oxygen, and bipap when she arrived in the emergency department. she was given solu-medrol, stacked breathing treatments, and fortunately her pulse began to fall as did her oxygen requirements. she is admitted to the critical care unit on bipap for further evaluation and management. Dr. Donald Patient is a pleasant 76-year-old female who lives in the [facility] in [facility]. Dr. Holt is her primary care provider. The patient' s daughter rOalia George and son Mo Azul are DPOA's. The patient requests full code. The patient has COPD and is chronically on 2 L of oxygen. She also has moderate pulmonary hypertension with recent PA pressure of 53 and pulmonary fibrosis. The patient states she had a cold about 2 weeks ago, and she thought it had resolved but then developed a cough yesterday with yellow phlegm. She also developed shortness of breath. She states she did have some chest pain, but denies chest pain now. O2 was increased to 4 L but she was still dyspneic and EMS was called and she was noted to have an O2 sat of 75% on 4 L. She was brought into the emergency room and found to have an elevated lactate of 3.4. ABG revealed pH of 7.4, PCO2 44, PO2 of 77 on BiPAP. BNP was 605. White count was 2.6 with 58% neutrophils. Hemoglobin 12.9. Platelets 229. Chest x-ray was obtained which revealed moderate to severe pulmonary edema Objective Vital signs: Temperature 96.5 F L 09/14/17 03:58 Pulse Rate 73 09/14/17 07:48 Respiratory Rate 18 09/14/17 09:28 Blood Pressure 115/67 09/14/17 03:58 Pulse Oximetry 95 09/14/17 09:07 Height/Weight/BMI: Height 1.6 m Weight 78.6 kg Body Mass Index 30.7 Comments: Afebrile, blood pressure 115/67, O2 sat 95% on 2 L, heart rate 94 Weight 78.6 kg GEN-alert, oriented, no acute distress HEENT-sclera anicteric, oropharynx is moist CV-regular rate and rhythm, on telemetry she is in sinus rhythm CHEST-clear to auscultation bilaterally ABD-soft, nontender with positive bowel sounds -Monae catheter in place with good urine output-we'll discontinue Monae catheter today EXT-SCDs on, no edema NEURO-alert and oriented 3, no focal deficits SKIN-warm and dry without rashes Hospital Course This is a general summary of the patient's hospital course. For more details refer to the complete medical record. Hospital course: The patient was admitted on 09/09/2017 with acute hypoxic respiratory failure secondary to healthcare associated pneumonia and pulmonary edema. She was also noted to have severe sepsis. She was initially given IV fluids, these were eventually discontinued and the patient was given diuretics for pulmonary edema. Echocardiogram was obtained with results as above. The patient was placed on broad-spectrum antibiotics initially including Levaquin, cefepime and vancomycin. Urine antigen for strep pneumonia was positive and at that time cefepime and vancomycin were discontinued and the patient was continued on Levaquin. Interestingly, sputum culture was positive for staph aureus and vancomycin was restarted. Sensitivities came back showing MRSA with sensitivities as above. At this time, the patient has had 5 days of Levaquin and approximately 4 days of vancomycin. I will give her one more day of Levaquin for pneumonia with positive strep pneumoniae antigen and will give doxycycline orally for 3 days to finish out a 7 day course for her sputum positive for MRSA. The patient had acute hypoxic respiratory failure requiring BiPAP initially. At the time of discharge, she is back to 2 L of oxygen. Cough is markedly improved. She states her breathing feels "better than usual." She was treated with scheduled breathing treatments and steroids for possible COPD exacerbation. Pulmonary edema has resolved. The patient was started on oxycodone CR 10 mEq twice daily for chronic pain and she states her pain is much better. She also states that she feels better than usual in that she chronically has a "brain fog" from pain that she doesn't have today. Regarding dysphagia-speech therapy recommends mechanical soft diet with nectar thick liquids. She had early satiety and when changed to 6 small meals per day, her intake improved. Would recommend continued speech therapy at the half-way to see if diet can be advanced. On 09/14/2017 was felt patient was stable for dismissal back to her half-way. Will discuss hospital course and dismissal plans with Dr. Holt. Time spent with patient: greater than 35 minutes Resuscitation Status: Full Code Discharge Plan - Discharge Disposition Discharge Date: 09/14/17 Disposition: 03 To U Not [facility] ([place]) *Condition: Improved Reason For Visit (Visit label in EMR): Severe sepsis,pneumonia,respiratory failure - Discharge Medications *Discharge Medications: New Albuterol/Ipratropium [Duoneb] 3 ml AEROSOL RTQID each Doxycycline [Vibramycin] 100 mg PO BID #7 tab Levofloxacin [Levaquin] 750 mg PO ACB 1 Days #1 tab predniSONE [Prednisone] 10 mg PO WB 3 Days #3 tab Oxycodone CR [OxyCONTIN] 10 mg PO Q12HR #20 tab Atorvastatin [Lipitor] 10 mg PO HS tab Continue Albuterol HFA Inhaler [Ventolin Hfa 90 mcg/actuation] 2 puff INH QID PRN PRN Reason: Wheezing Baclofen [Lioresal] 10 mg PO TID Calcium 500 + D [Os Cheko-D 500] 1 tab PO DAILY Colesevelam [Welchol] 1,250 mg PO BID Desipramine HCl 50 mg PO BID Diclofenac Potassium 50 mg PO BID Divalproex ER [Depakote ER] 1,000 mg PO BID Fluticasone [Flovent Diskus 50 mcg] 1 spray EA NOSTRIL DAILY Magnesium Oxide [Magnesium] 500 mg PO DAILY Metoprolol Succinate (XL) [Toprol Xl] 50 mg PO DAILY Multi-Vitamin Plain [Theragran] 1 tab PO DAILY Nystatin/Triamcinolone CR [MYCOLOG ii] 15 applicatio TP BID Olopatadine 0.1% Eye Drops-Bid [Patanol] 1 drop EACH EYE BID Oxybutynin Chloride 5 mg PO BID Venlafaxine HCl [Venlafaxine HCl ER] 150 mg PO DAILY Acidoph/L.bulg/Bif.b/S.thermop [Bacid Caplet] 1 cap PO TIDWM tab Albuterol/Ipratropium [Duoneb] 3 ml AEROSOL Q4H PRN each PRN Reason: Shortness Of Air Hydrocodone/Acetaminophen [Hydrocodon-Acetaminophen 5-325] 1 tab PO Q6HR PRN #30 tab PRN Reason: Pain Milk of Magnesia [Mom] 30 ml PO DAILY PRN udc PRN Reason: Constipation PEG 3350 17gm PACKET [Miralax] 17 gm PO DAILY PRN packet PRN Reason: Constipation Senna + Docusate [Senna Plus Tablet] 1 tab PO BID PRN tab PRN Reason: Constipation Sodium Chloride [[place]] 2 spray EA NOSTRIL QID spray Fluticasone Nasal [place] [Flonase] 0 spray IN PRN Saliva Substitute Mouth [place] [Biotene Moisturizing Mouth [place]] 44.3 ml MM PRN Acyclovir 400 mg PO BID Atorvastatin [Lipitor] 1 tab PO DAILY Cyanocobalamin (Vitamin B-12) [Vitamin B-12] 1,000 mcg PO DAILY Methylcellulose (with Sugar) [Fiber Therapy Powder] 2 packet PO DAILY Omeprazole [Prilosec] 20 mg PO ACB Bisacodyl Supp [Dulcolax] 10 mg RECTALLY DAILY PRN suppositor PRN Reason: Constipation Nystatin Powder [Mycostatin] 1 applicatio TP TID #1 bottle Guaifenesin/Dextromethorphan [Guaifenesin Dm Syrup] 5 ml PO PRN - Discharge Packet/Instructions *Diet: Mechanical soft with nectar thick liquids, 6 small meals per day *Activity: up with assist *Pain Management/Treatment: Oxycodone CR 10 mg 1 every 12 hours. Baclofen 3 times a day. [place] when necessary for breakthrough pain. Hold oxycodone, baclofen and [place] if patient is sedated *Wound Care: Not applicable Additional Instructions: Hold narcotics if the patient is sedated. Monae catheter was removed prior to discharge on 09/14/2017. Please make sure the patient is able to void. Oxygen at 2 L per nasal cannula. *Expected Signs/Symptoms: Mild fatigue, mild cough *Notify Physician if: Fevers, increasing oxygen needs, altered mental status, worsening respiratory status, or any other significant concerns *During Business Hours Contact: Call Dr. Jocelyn Holt's office *After Business Hours Contact: Call [phone] Holt paged *Pending Lab/Results: No Pending Lab - Referrals/Follow Up *Referrals/Follow Up: Jocelyn Holt MD [Primary Care Provider] - 1 Week - Patient Handouts - Dismissal Complete Discharge Instructions are:: Complete Physician Narrative - Narrative Attestation Narrative: Date: 09/14/17 Time: 3051
[2017-09-14 11:30] VITALS: BP 111/67; PULSE 94; TEMP 97.6; O2SAT 96
--- NOTE | 2017-09-14 12:12 | Extended Care Facility Orders ---
Admission Orders Admit to:: Jail Allergies/Adverse Reactions: Allergies gabapentin Allergy (Unknown, Verified 09/09/17 03:49) pregabalin [From Lyrica] Allergy (Unknown, Verified 09/09/17 03:49) furosemide [From Lasix] Allergy (Verified 09/09/17 03:49) latex Allergy (Verified 09/09/17 03:49) Admitting Diagnosis: Severe sepsis,pneumonia,respiratory failure Admitting Physician: Elizabeth Donald MD Attending Physician: Elizabeth Donald MD Code Status: Full Code Anticiapted Length of Stay: 30 days or less Rehab Potential: fair Rehab Prognosis: fair Diet: 09/09/17 Lunch Regular Diet [DIET] Diet Modifications: Fluid Consistency: SYRNEC Food Consistency: MECSOF Other Diet Modifiers: 6SMALL May use Facility Protocol or Standing Orders: Yes May have flu vaccine: Yes Evaluations/Treatment: Speech, PT, OT Jail Certification: I certify that SNF services are required to be given on an inpatient basis because of the patient's need for fdc care on a continuing basis for the condition(s) for which he/she received inpatient hospital services prior to his/her transfer to the SNF. SNF inpatient care is necessary for the following reasons: Indication for Jail: Med Admininistration, Teach COPD Management - Additional Information In Event of Arrest: Start CPR,call 911,send patient to the ER Resident is Aware of Diagnosis: Yes Referrals: Jocelyn Holt MD [Primary Care Provider] - 1 Week Additional Orders: Oxygen at 2 L per nasal cannula
[2017-09-14 14:05] VITALS: RESP 20
== END 2017-09-14 14:15 | DRG 871 ==
LOC: SUPCPDRO → ED 03:10 → EDHOLD 04:13 → CCU 04:46 → MED 09-10 11:28
PROVIDERS: ADMIT Internal Medicine; ATTEND Internal Medicine